=== PATIENT | female | born 1950 | race Two or more races ===

== ENCOUNTER 2024-07-15 17:28 | Observation (INO) | payer OTHER, SELFPAY ==
[2024-07-15 17:33] VITALS: BP 155/97; PULSE 78; RESP 17; TEMP 36.8; O2SAT 98
[2024-07-15 17:40] VITALS: PULSE 77
--- NOTE | 2024-07-15 17:40 | XR_ITS ---
Examination: CT brain head without contrast. 2-D sagittal coronal reconstructions Date and time of exam:July 15, 2024 1805 hrs. Comparison January 24, 2021 Indications: Onset focal neurologic deficit, left facial droop and dizziness beginning 2 days ago, history headache dizziness January 24, 2021 CTDI: vol (mGy):50.7 DLP: (mGycm):1084 Technique: Multiple CT axial sections of the brain have been obtained, 5 mm slice thickness. Contrast has not been administered. 2-D sagittal, coronal reconstructions have been obtained Low dose protocols were performed. One or more of the following dose reduction techniques were used; automated exposure control, adjustment of the mA and/or KV according to patient size, use of iterative reconstruction technique. Findings: No significant ventricular enlargement. Intra-axial or extra-axial hemorrhage density is not seen. No mass effect or midline shift Basal cisterns are not remarkable. Fourth ventricle is midline. Cranial vault intact. Impression: Negative for acute hemorrhage, mass effect or midline shift As clinically warranted, brain MRI follow-up would best assess for acute ischemic change
[2024-07-15 18:11] VITALS: BP 154/88; PULSE 66; RESP 17; TEMP 37.2; O2SAT 100
[2024-07-15 18:16] LABS: Basophils % (Auto) 1 % (0-2.5); Eosinophils # (Auto) 0.1 Thou/mm3 (0.0-0.5); Eosinophils % (Auto) 2 % (0-10); Hematocrit 32.7 % (36.0-46.0); Hemoglobin 11.1 g/dL (12.0-16.0); Immature Granulocytes % (Auto) 0 % (0-0); Immature Granulocytes Auto 0.01 Thou/mm3 (0.00-0.00); Lymphocytes # (Auto) 1.8 Thou/mm3 (1.0-4.8); Lymphocytes % (Auto) 29 % (10-50); Mean Corpuscular HGB Conc 33.9 g/dl (31.0-37.0); Mean Corpuscular Hemoglobin 31.2 pg (25.0-35.0); Mean Corpuscular Volume 92 fL (80-100); Monocytes # (Auto) 0.5 Thou/mm3 (0.0-0.8); Monocytes % (Auto) 9 % (0-12); Neutrophils # (Auto) 3.7 Thou/mm3 (1.8-7.7); Neutrophils % (Auto) 60 % (37-80); Nucleated Red Blood Cell % 0 /100 WBC (0); Platelet Count 176 Thou/mm3 (140-440); RDW Standard Deviation 46.6 fL (36.4-46.3); Red Blood Count 3.56 Miln/mm3 (4.00-5.20); White Blood Count 6.3 Thou/mm3 (3.6-11.0)
[2024-07-15 18:22] LABS: Prothrombin Time 10.9 Seconds (9.0-12.2)
[2024-07-15 18:25] LABS: B-Type Natriuretic Peptide 112 pg/mL (0-100)
[2024-07-15 18:26] LABS: Alanine Aminotransferase 26 U/L (10-49); Albumin, Serum 4.1 gm/dL (3.4-4.8); Albumin/Globulin Ratio 1.6 (1.2-2.2); Alkaline Phosphatase 95 U/L (46-116); Anion Gap 7 (7-16); Aspartate Amino Transferase 28 U/L (0-34); BUN/Creatinine Ratio 27 Ratio (12-20); Bilirubin,Total 0.4 mg/dL (0.3-1.2); Blood Urea Nitrogen 16 mg/dL (9-23); Calcium 9.2 mg/dL (8.3-10.6); Calcium (Corrected) 9.2 mg/dL (8.5-10.1); Carbon Dioxide 25.8 mMol/L (20.0-31.0); Chloride 102 mMol/L (98-107); Creatinine (Component) 0.6 mg/dL (0.6-1.3); Globulin 2.6 gm/dL (2.3-3.5); Glucose 103 mg/dL (74-106); LDH (Lactate Dehydrogenase) 191 U/L (120-246); Magnesium 2.1 mg/dL (1.6-2.6); Osmolality,Calculated 271 (275-295); Potassium 3.8 mMol/L (3.4-5.1); Sodium 135 mMol/L (136-145); Total Protein 6.7 gm/dL (5.7-8.2); Troponin I < 0.020 ng/mL (0.0-0.045); eGFR > 60 See Note
[2024-07-15 18:58] LABS: Partial Thromboplastin Time 27.3 Seconds (22.0-36.0)
--- NOTE | 2024-07-15 19:18 | EDNOTE_ITS ---
Neuro Symptoms Deficit-RME/HPI General Chief Complaint: Neuro Symptoms/Deficit Stated Complaint: LEFT FACIAL DROP/ SENT BY CLINIC R/O STROKE Time Seen by Provider: 07/15/24 17:39 Arrival date/time: 07/15/24 17:28 Limitations: no limitations RME / HPI RME / HPI Narrative: DR. MUNSON MAIN ED EVALUATION: 74 year old female with past medical history significant for hypertension presents to the Emergency Department accompanied by her daughter with complaint of mild left facial droop onset today at 1 PM. Patient also mentions that she had dizziness/ vertigo onset 2 days as well as numbness and tingling from her face onset 2 days, worse today. She took Meclizine and it helped a little. However, today she started with the left facial droop, which is new, and is here for evaluation. Patient denies any of the following: headache, nausea, vomiting, or any other symptoms at this time. Related Data Home Medications ?Medication ?Instructions ?Recorded ?Confirmed Hydrocodone/Acetaminophen * (NORCO 1 tab PO Q8HR PRN PAIN #0 tabs 05/09/15 10/15/22 5/325 *) lisinopril 10 mg tablet 10 mg PO QDAY High Blood Pressure 05/09/15 10/16/22 #0 tabs levothyroxine 50 mcg capsule 50 mcg PO QDAY 10/15/22 10/15/22 Previous Rx's ?Medication ?Instructions ?Recorded ibuprofen 600 mg tablet 600 mg PO Q8H PRN fever or pain 07/07/23 #30 tabs diphenhydramine HCl 25 mg capsule 50 mg (2 x 25 mg) PO TID PRN 04/05/24 (Benadryl) anxiety #20 caps Allergies Allergy/AdvReac Type Severity Reaction Status Date / Time No Known Allergies Allergy Verified 07/15/24 17:29 Review of Systems Review of Systems Systems Reviewed: All systems reviewed, normal except as documented Narrative Review of Systems: GEN: No fever, no chills, no weight loss EYES: No discharge, no visual changes, no pain HEENT: No ear pain, no congestion, no sore throat PULM: No shortness of breath, no cough, no congestion CV: No chest pain, no dyspnea on exertion, no palpitations GI: No nausea, no vomiting, no diarrhea, no pain, no constipation : No frequency, no urgency and no dysuria MUSC/SKEL: No joint pain, no back pain SKIN: No rash PSYCH: No hallucinations, no depression HEME/LYMPH: No easy bleeding or bruising tendencies NEURO: No weakness, no headache, + mild left facial droop, + dizziness/ vertigo, + numbness and tingling from her face Past Medical History Past Medical History CARDIAC: Positive Hypertension Social History SMOKING STATUS: Never smoker SUBSTANCE USE: does not use ALCOHOL: Never ED Exam Narrative Physical exam: NIH STROKE SCALE 1a. Level of Consciousness (Alert, drowsy, etc) [0 = Alert; 1 = Drowsy; 2 = Stuporous; 3 = Coma] = 0 1b. LOC Questions: (Month, age) [0 = Answers both correctly; 1 = Answers one correctly; 2 = Incorrect] = 0 1c. LOC Commands (Open/ close eyes, make fist/ let go) [0 = Obeys both correctly; 1 = Obeys one correctly; 2 = Incorrect] = 0 2. Best Gaze (Eyes open - patient follows examiner?s finger or face) [0 = Normal; 1 = Partial gaze palsy; 2 = Forced deviation] = 0 3. Visual Bowman (Introduce visual stimulus/ threat to pt?s visual field quadrants) [0 = No visual loss; 1 = Partial Hemianopia; 2 = Complete Hemianopia; 3 = Bilateral Hemianopia (Blind)] = 0 4. Facial Paresis (Show teeth, raise eyebrows and squeeze eyes shut) [0 = Normal; 1 = Minor; 2 = Partial; 3 = Complete] = 1 5a. Left Arm Motor Function (Elevate arm to 90 degrees if patient is sitting, 45 degrees if supine) [0 = No drift; 1 = Drift; 2 = Can?t resist gravity; 3 = No effort against gravity; 4 No movement; X = Untestable (Joint fusion or limb amp)] = 0 5b. Right Arm Motor Function (Elevate arm to 90 degrees if patient is sitting, 45 degrees if supine) [0 = No drift; 1 = Drift; 2 = Can?t resist gravity; 3 = No effort against gravity; 4 = No movement; X = Untestable (Joint fusion or limb amp)] = 0 6a. Left Leg Motor Function (Elevate 30 degrees with patient supine) [0 = No drift; 1 = Drift; 2 = Can?t resist gravity; 3 = No effort against gravity; 4 = No movement; X = Untestable (Joint fusion or limb amp)] = 0 6b.? Right Leg Motor Function (Elevate 30 degrees with patient supine) [0 = No drift; 1 = Drift; 2 = Can?t resist gravity; 3 = No effort against gravity; 4 = No movement; X = Untestable (Joint fusion or limb amp)] = 0 7. Limb Ataxia (Finger-nose, heel down merrill) [0 = No ataxia; 1 = Present in one limb; 2 = Present in two limbs] = 0 8. Sensory (Pin prick to face, arm, trunk, and leg; compare side to side) [0 = Normal; 1 = Partial loss; 2 = Severe loss] = 1 9. Best Language (Name item, describe a picture and read sentences) [0 = No aphasia; 1 = Mild to moderate aphasia; 2 = Severe aphasia; 3 = Mute] = 0 10. Dysarthria (Evaluate speech clarity by patient repeating listed words) [0 = Normal articulation; 1 = Mild to moderate slurring of words; 2 = Near to unintelligible or worse; X = Intubated or other physical barrier] = 0 11. Extinction and Inattention (Use information form prior testing to identify neglect or double simultaneous stimuli testing) [0 = No neglect; 1 = Partial neglect; 2 = Complete neglect] = 0 TOTAL SCORE = 2 General Limitations: Present no limitations General appearance: Present alert, in no apparent distress and other (mild left facial droop) Head Head exam: Present atraumatic, normocephalic and normal inspection Eye Eye exam: Present normal appearance, PERRL and EOMI ENT ENT exam: Present normal exam, normal oropharynx and mucous membranes moist Neck Neck exam: Present normal inspection, full ROM and trachea midline Chest Chest inspection: Present normal inspection and symmetric chest wall rise Respiratory Respiratory exam: Present normal lung sounds bilaterally Cardiovascular Cardiovascular exam: Present regular rate, normal rhythm and normal heart sounds Abdominal Exam Abdominal exam: Present soft and normal bowel sounds Extremities Exam Extremities exam: Present normal inspection and full ROM Back Exam Back exam: Present normal inspection and full ROM Neurological Exam Neurological exam: Present alert, oriented X3, CN II-XII intact, normal gait and other (mild left facial droop) Psychiatric Psychiatric exam: Present normal affect and normal mood Skin Skin exam: Present warm, dry, intact and normal color Course Quality Measures none Orders Category Date Time Status COVID-19 Screening Questionnaire NOW Care 07/15/24 22:30 Active Stem Setter NOW Care 07/15/24 17:40 Active Decision to Admit X1 Care 07/15/24 22:30 Active EKG (ED ONLY) *Do not use* NOW Care 07/15/24 17:[address] head/brain wo con Stat Exams 07/15/24 17:40 Completed EKG (ED Only) Stat Exams 07/15/24 17:40 Ordered B-Type Natriuretic Peptide Stat Lab 07/15/24 17:56 Completed CBC Stat Lab 07/15/24 17:56 Completed Comprehensive Metabolic Panel Stat Lab 07/15/24 17:56 Completed Drug Screen,Urine Stat Lab 07/15/24 20:19 Completed LDH (Lactate Dehydrogenase) Stat Lab 07/15/24 17:56 Completed Magnesium Stat Lab 07/15/24 17:56 Completed Partial Thromboplastin Time Stat Lab 07/15/24 17:56 Completed Prothrombin Time with INR Stat Lab 07/15/24 17:56 Completed Troponin I Stat Lab 07/15/24 17:56 Completed Urinalysis Stat Lab 07/15/24 20:40 Completed Aspirin [Ecotrin] Med 07/15/24 21:35 Discontinued 81 mg PO X1 ONE Vital Signs Vital signs: Vital Signs Temperature 98.2 F 07/15/24 17:33 Pulse Rate 78 07/15/24 17:33 Respiratory Rate 17 07/15/24 17:33 Blood Pressure 155/97 H 07/15/24 17:33 Pulse Oximetry (%) 98 07/15/24 17:33 Oxygen Delivery Method Room Air 07/15/24 17:33 Neuro Symptoms / Deficit MDM Narrative MDM Narrative:: IJahaira am scribing for and in the presence of Dr. Munson. Patient data External records reviewed:: [facility] previous records (Reviewed last ED visit dated 04/05/24, discharged with the following: Anxiety.) Clinical information provided by:: patient and family (daughter) Social determinants that could affect healthcare access:: none Patient has the following chronic illnesses:: Hypertension How is presenting disease/condition affected by chronic disease/condition?: exacerbated by Evaluation data The following diagnostics were reviewed and interpreted by me:: lab results, radiology exam(s) and EKG tracing(s) Lab and/or radiology exams considered but not ordered:: none Interpretation Summary: Procedure(s): CT head/brain wo con Accession Number(s): [id number] cc: Jami Beasley; Osmin (GUEST RELATION OFFICER),Tomas GUEST RELATION OFFICER; Poncho Jones MD~ Examination: CT brain head without contrast. 2-D sagittal coronal reconstructions Date and time of exam:July 15, 2024 1805 hrs. Comparison January 24, 2021 Indications: Onset focal neurologic deficit, left facial droop and dizziness beginning 2 days ago, history headache dizziness January 24, 2021 CTDI: vol (mGy):50.7 DLP: (mGycm):1084 Technique: Multiple CT axial sections of the brain have been obtained, 5 mm slice thickness. Contrast has not been administered. 2-D sagittal, coronal reconstructions have been obtained Low dose protocols were performed. One or more of the following dose reduction techniques were used; automated exposure control, adjustment of the mA and/or KV according to patient size, use of iterative reconstruction technique. Findings: No significant ventricular enlargement. Intra-axial or extra-axial hemorrhage density is not seen. No mass effect or midline shift Basal cisterns are not remarkable. Fourth ventricle is midline. Cranial vault intact. Impression: Negative for acute hemorrhage, mass effect or midline shift As clinically warranted, brain MRI follow-up would best assess for acute ischemic change Dictated By: Poncho Jones MD Medications / Prescriptions Medications or Prescriptions considered but not ordered:: none Medication administrations:: Medication Administration History Discontinued Medications Aspirin (Aspirin Ec 81 Mg Tabec) 81 mg PO X1 ONE Stop: 07/15/24 21:36 see above if any Consultations Consultation(s) initiated? (list below): Yes Consultation #1 (Physician, Specialty, Details): Discussed case with [Dr. Scott] from [teleneurology] regarding [consultation]. Discussed patients ED course, exam findings, labs, and radiology results. They are unclear on which side the facial droop is on, but agrees regarding the patient's complaint of numbness. Recommends aspirin, MRI, and further work-up. Time: 22:00 Consultation #2 (Physician, Specialty, Details): Discussed case with [the resident physician, attending Dr. Cardenas] from Hospitalist service regarding admission. Discussed patients ED course, exam findings, labs, and radiology results. The Hospitalist [agrees] to accept the patient for admission. Time: 22:20 Diagnosis Neuro Differential Diagnosis: subarachnoid hemorrhage, cerebrovascular accident, transient cerebral ischemia and other (vertigo, UTI, dehydration, electrolyte imbalance, anemia, atrial fibrillation) Most likely diagnosis given after review of the tests above:: see below Admission Indicated Admission indicated?: indicated Admission Request Was there a request for admission?: Yes Admission Attestation Admission request attestation: Discussed case with [] from Hospitalist service regarding admission. Discussed patients ED course, exam findings, labs, and radiology results. The Hospitalist [agrees,declines] to accept the patient for admission. Disposition Plan Disposition Plan: Admit Critical Care Time Critical Care Time Critical Care Time: Yes Total Critical Care Time (min.): 45 Attestation: The high probability of sudden, clinically significant deterioration in the patient?s condition required the highest level of my preparedness to intervene urgently. The services I provided to this patient were to treat and/or prevent clinically significant deterioration. Services included the following: chart data review, reviewing nursing notes and/or old charts, documentation time, new vehicle sales consultant collaboration regarding findings and treatment options, medication orders and management, direct patient care, vital sign assessments and ordering, interpreting and reviewing diagnostic studies and lab tests. Aggregate critical care time includes only time during which I was engaged in work directly related to the patient?s care, as described above, whether at bedside or elsewhere in the Emergency Department. It did not include time spent performing other reported procedures or the services of residents, students, nurses or physician assistants. Discharge Plan Plan Patient Disposition: Admit Acute Care w/in Hospital Patient condition on transfer: Stable Prescriptions/Referrals Prescriptions/Med Rec: No Action lisinopril 10 MG tablet 10 mg PO QDAY Qty: 0 Hydrocodone/Acetaminophen * (NORCO 5/325 *) 1 TAB tablet 1 tab PO Q8HR PRN (Reason: PAIN) Qty: 0 levothyroxine 50 mcg Capsule 50 mcg PO QDAY ibuprofen 600 mg tablet 600 mg PO Q8H PRN (Reason: fever or pain) Qty: 30 0RF diphenhydramine HCl [Benadryl] 25 mg capsule 50 mg PO TID PRN (Reason: anxiety) Qty: 20 0RF Referrals: Ramos,Roxie, PA-C [Primary Care Provider] - In 1 week Problem List Clinical Impression: Dizziness, Facial droop Patient/Caregiver Discharge Instructions Print Language: Swedish Stand Alone Forms: [employer] Award Info., Patient Portal Info Letter
[2024-07-15 21:21] LABS: Collection Type, Urine Clean Catch; RBC,Urine 0 /hpf (0-3)
[2024-07-15 21:32] LABS: Bilirubin,Urine Negative (Negative); Blood,Urine Negative (Negative); Clarity,Urine Clear (Clear/Hazy); Color,Urine Colorless (Lt Yel-Yel); Glucose, Urine Negative (Negative); Ketones,Urine Negative (Negative); Leukocyte Esterase,Urine Negative (Negative); Nitrite,Urine Negative (Negative); PH,Urine 6.5 (5.0-7.0); Protein,Urine Negative (Neg - Trace); Specific Gravity,Urine 1.007 (1.001-1.035); Squamous Epithelial Cell,Urine < 1 /hpf (0-5); Urobilinogen,Urine Negative mg/dL (0.0-1.0); WBC,Urine 1 /hpf (0-5)
[2024-07-15 21:37] VITALS: BP 162/88; PULSE 69; RESP 18; TEMP 36.6; O2SAT 100
--- NOTE | 2024-07-15 21:46 | PC.NURSE ---
stroke consult Case # [id number]
--- NOTE | 2024-07-15 22:10 | PD.TNEURO ---
Tele Neuro Consultation Consultation Date 07/15/24 Most Recent Vital Signs Last Vital Signs Temp 98 F 07/15/24 21:37 Pulse 69 07/15/24 21:37 Resp 18 07/15/24 21:37 BP 162/88 H 07/15/24 21:37 Pulse Ox 100 07/15/24 21:37 O2 Del Method Room Air 07/15/24 21:37 Laboratory-Coagulation Panel PT 10.9 Seconds (9.0-12.2) 07/15/24 17:56 INR 1.0 (0.9-1.3) 07/15/24 17:56 APTT 27.3 Seconds (22.0-36.0) 07/15/24 17:56 Consultation Narrative [facility] Consult Services Stat Consult Patient Name:???Yusra Rubin Date of :???1950 Identification Number:??? Date of Service:???07/15/2024 21:46:12 Diagnosis:?R20.2 - Paresthesia of skin ?H82 - Vertiginous syndromes in diseases classified Impression 1. left facial numbness: her left face is numb, interestingly on exam her right corner of her mouth is lower then the left but they felt perhaps a left facial droop smile is fairly symmetric no dysarthria. She does have vertigo worse then usual. CT head okay. Given concern for possible cva recommend MRI brain, FLP, A1c. routine cta head neck. Start asa 81 mg. Recommendations: Our recommendations are outlined below. Diagnostic Studies :MRI head without contrast CTA head and neck with contrast Laboratory Studies :Lipid panel I orderedHemoglobin A1c Antithrombotic Medication :Aspirin 81 mg PO daily Nursing Recommendations :IV Fluids, avoid dextrose containing fluids, Maintain euglycemia Neuro checks q4 hrs x 24 hrs and then per shift Head of bed 30 degrees Continue with Telemetry Consultations :Recommend Speech therapy if failed dysphagia screen Physical therapy/Occupational therapy DVT Prophylaxis :Choice of Primary Team Disposition :Neurology will follow Metrics: Dispatch Time: 07/15/2024 21:46:12 Callback Response Time: 07/15/2024 21:46:24 Primary Provider Notified of Diagnostic Impression and Management Plan on: 07/15/2024 22:11:59 CT HEAD: As Per Radiologist CT Head Showed No Acute Hemorrhage or Acute Core Infarct Chief Complaint: right facial weakness and numbness History of Present Illness:Patient is a 74 year old Female. The patient is a 74 year old woman with a history of HTN and vertigo. Two days ago she started to have some left facial weakness and numbness. She has no other weakness numbness or tingling. She does not take any blood thinners. No history of cva. She also has vertigo that has been more prominent then usual. Past Medical History: ?Hypertension Other PMH:? vertigo Medications: No Anticoagulant use? No Antiplatelet use Reviewed EMR for current medications Allergies:? Reviewed Social History: Drug Use: No Family History: There is no family history of premature cerebrovascular disease pertinent to this consultation ROS : 14 Points Review of Systems was performed and was negative except mentioned in HPI. Past Surgical History: There Is No Surgical History Contributory To Today?s Visit Examination: BP(136/75),?Pulse(75), 1A: Level of Consciousness - Alert; keenly responsive?+ 0 1B: Ask Month and Age - Both Questions Right?+ 0 1C: Blink Eyes & Squeeze Hands - Performs Both Tasks?+ 0 2: Test Horizontal Extraocular Movements - Normal?+ 0 3: Test Visual Bowman - No Visual Loss?+ 0 4: Test Facial Palsy (Use Grimace if Obtunded) - Minor paralysis (flat nasolabial fold, smile asymmetry)?+ 1 5A: Test Left Arm Motor Drift - No Drift for 10 Seconds?+ 0 5B: Test Right Arm Motor Drift - No Drift for 10 Seconds?+ 0 6A: Test Left Leg Motor Drift - No Drift for 5 Seconds?+ 0 6B: Test Right Leg Motor Drift - No Drift for 5 Seconds?+ 0 7: Test Limb Ataxia (FNF/Heel-Aguilar) - No Ataxia?+ 0 8: Test Sensation - Mild-Moderate Loss: Less Sharp/More Dull?+ 1 9: Test Language/Aphasia - Normal; No aphasia?+ 0 10: Test Dysarthria - Normal?+ 0 11: Test Extinction/Inattention - No abnormality?+ 0 NIHSS Score:?2 Spoke with :?ED Provider This consult was conducted in real time using interactive audio and video technology. Patient was informed of the technology being used for this visit and agreed to proceed. Patient located in hospital and provider located at home/office setting. Patient is being evaluated for possible acute neurologic impairment and high probability of imminent or life - threatening deterioration.I spent total of 35 minutes providing care to this patient, including time for face to face visit via telemedicine, review of medical records, imaging studies and discussion of findings with providers, the patient and / or family. Dr Xiomara Scott [facility] For Inpatient follow-up with [facility] physician please call [facility] at . As we are not an outpatient service for any post hospital discharge needs please contact the hospital for assistance. If you have any questions for the [facility] physicians or need to reconsult for clinical or diagnostic changes please contact us via [facility] at .
[2024-07-15 22:24] LABS: Amphetamine/Methamp Scrn,U Negative (Negative); Barbiturate Screen,Urine Negative (Negative); Benzodiazepines Screen,Urine Negative (Negative); Benzoylecgonine Screen, Ur Negative (Negative); Fentanyl Screen,Urine Negative (Negative); Opiate Screen,Urine Negative (Negative); THC Screen,Urine Negative (Negative)
[2024-07-15] MEDS: ASPIRIN EC 81 MG TABEC PO (22:44)
[2024-07-15 22:47] VITALS: BP 141/91; PULSE 70; PULSE 72; RESP 15; RESP 18; O2SAT 100; O2SAT 97
[2024-07-15 23:00] VITALS: BP 162/96; PULSE 71; RESP 18; O2SAT 100
--- NOTE | 2024-07-15 23:19 | PD.RESHP ---
Documentation for date of: 07/15/24 HPI History of Present Illness Chief complaint: Left facial numbness, dizziness History of present illness: 74-year-old female with past medical history of chronic vertigo (likely BPPV), PAD with persistent claudication and angioplasty in the past, hypertension presenting to the ED after she developed left facial numbness and was told at her PCP ([facility] in [place], [place]) to present to the emergency room for elevated blood pressure (systolic 150s) and possible mini stroke . History was taken alongside patient's daughters. Patient states that the symptoms started sometime around 4 PM on 07/15 with a headache near the back of her head which she describes as a heavy feeling. Patient's daughter also states that on Thursday (07/13) she had nasolabial fold numbness during a . Of note, patient has history of dizzy spells which started about 10 years ago after a concert. Patient states that symptoms come and go every other year or so; she takes meclizine 25 mg and that usually helps with her symptoms. This time however, patient took 3 tablets of meclizine and her symptoms did not subside. Her headache was worsened with dizziness and left-sided facial numbness around her nasolabial folds predominantly. Patient also has significant history of peripheral artery disease with angioplasty; she is unsure if they did balloon angioplasty or stent placement at that time, she does not take any blood thinners and she has not followed up with vascular surgery since the procedure. Patient denies having any fever/chills, shortness of breath, nausea/vomiting/diarrhea during and/or prior to this episode. Patient does state that she did experience chest tightness several months ago but that symptom has not been present since. Medical history: As stated above Surgical history: X 1 , reversal of tubal ligation Allergies: NKDA Medications: Meclizine 25 mg p.o., lisinopril 10 mg p.o., levothyroxine 50 mcg p.o. Family history: Mother in her 50s from an enlarged heart, and from heart disease Social history: Patient used to work in the [employer]ras[employer], lives in [place] with daughter and , denies ever smoking tobacco, drinking alcohol or illicit drug use ROS: All 12 systems assessed and the patient denies unless otherwise stated in the HPI In the ED, blood pressure is 155/97, heart rate 78, respiratory rate 17, temperature 98.5 and satting 98 on room air. Pertinent lab findings included hemoglobin 11.1 (MCV 92), sodium 135, troponin within normal limits, BNP 112, urinalysis without any signs of urinary tract infection, U-Tox negative. Stroke alert was initiated and teleneurology consulted; NIHSS score was 2, CT negative for any acute process. Teleneurology was consulted and their recommendations were to admit the patient and to require an MRI brain without contrast along with starting the patient on aspirin 81 mg daily to rule out stroke. Exam Vital Signs Temp Pulse Resp BP Pulse Ox O2 Del Method 98 F 72 15 141/91 H 97 Room Air 07/15/24 21:37 07/15/24 22:47 07/15/24 22:47 07/15/24 22:47 07/15/24 22:47 07/15/24 21:37 Narrative Exam Physical Exam: GENERAL: Awake, answers questions appropriately, appears stated age HEENT: NC/AT. Moist mucosa. PERRLA/EOMI. CARDIO: Heart RRR, no obvious murmurs, no JVD. PULM: No coughing or visible SOB. Lungs CTA B/L. GI: Abdomen soft, NT/ND, +BS. SKIN/MSK/EXT: No wounds/discoloration/rashes/edema/amputations. +Pedal pulses present B/L. NEURO: Oriented x3, L sided facial droop noted, Trigeminal nerve L side more numb, Facial nerve on left side is weak (cannot raise L eyebrow), rest of CN 2-12 intact, muscle strength and sensation intact in both upper/lower extremities. Moves extremities x4. Results: Labs 07/16/24 04:24 07/15/24 17:56 Labs: Short CBC 07/15/24 Range/Units 17:56 WBC 6.3 (3.6-11.0) Thou/mm3 Hgb 11.1 L (12.0-16.0) g/dL Hct 32.7 L (36.0-46.0) % Plt Count 176 (140-440) Thou/mm3 BMP 07/15/24 17:56 Sodium 135 L Potassium 3.8 Chloride 102 Carbon Dioxide 25.8 BUN 16 Creatinine 0.6 Glucose 103 Calcium 9.2 Cardiac Enzymes 07/15/24 Range/Units 17:56 Troponin I < 0.020 (0.0-0.045) ng/mL Liver Function 07/15/24 Range/Units 17:56 Total Bilirubin 0.4 (0.3-1.2) mg/dL AST 28 (0-34) U/L ALT 26 (10-49) U/L Alkaline Phosphatase 95 (46-116) U/L Albumin 4.1 (3.4-4.8) gm/dL Urine 07/15/24 Range/Units 20:40 Urine Color Colorless A (Lt Yel-Yel) Urine Clarity Clear (Clear/Hazy) Urine pH 6.5 (5.0-7.0) Ur Specific [place] 1.007 (1.001-1.035) Urine Protein Negative (Neg - Trace) Urine Glucose (UA) Negative (Negative) Quality Measures Quality Measures none Advance care planning discussed with:: patient and child (Daughters) Medications Home Medications and Allergies Home Medications ?Medication ?Instructions ?Recorded ?Confirmed ?Type lisinopril 10 mg tablet 10 mg PO QDAY High Blood Pressure 05/09/15 07/16/24 History #0 tabs hydrocodone 10 mg-acetaminophen 1 tab PO I2ABPER PRN ARTHIRITIS 07/16/24 07/16/24 History 325 mg tablet PAIN levothyroxine 88 mcg tablet 88 mcg PO DAILY 07/16/24 07/16/24 History meclizine 25 mg tablet 25 mg PO TID PRN Vertigo 07/16/24 07/16/24 History Allergies Allergy/AdvReac Type Severity Reaction Status Date / Time No Known Allergies Allergy Verified 07/15/24 17:29 Visit Medications Acetaminophen (Acetaminophen 325 Mg Tablet) 650 mg PO Q6H PRN PRN Reason: PAIN SCALE 1-3 (mild Stop: 08/14/24 23:13 Heparin Sodium (Porcine) (Heparin Sod Inj 5000 Unit/Ml Vial) 5,000 unit SC Q12HR SATHYA Stop: 07/30/24 08:59 Ondansetron HCl (Ondansetron Inj 2 Mg/Ml Inj 2 Ml) 4 mg IV Q6H PRN; Protocol PRN Reason: NAUSEA OR VOMITING Stop: 08/14/24 23:13 Sennosides (Senna Tablet) 1 tab PO QDAY PRN; Protocol PRN Reason: constipation Stop: 08/14/24 23:13 Discontinued Medications Aspirin (Aspirin Ec 81 Mg Tabec) 81 mg PO X1 ONE Stop: 07/15/24 21:36 Last Admin: 07/15/24 22:44 Dose: 81 mg Assessment & Plan Plan 74-year-old female with past medical history of chronic vertigo (likely BPPV), PAD with persistent claudication and angioplasty in the past, hypertension presenting after she developed left facial numbness and dizziness; stroke alert was initiated and teleneurology consulted; NIHSS score was 2, CT negative for any acute process. Teleneurology was consulted and their recommendations were to admit the patient and to require an MRI brain without contrast along with starting the patient on aspirin 81 mg daily to rule out stroke. #Stroke r/o #Possible CVA vs. Arnold's Palsy Patient presenting to ED on 07/15 with left facial numbness and dizziness. Symptoms started sometime on Friday 07/13 with nasolabial fold numbness and progressed to headache + dizziness sometime around 4pm on 07/15 Patient has not experienced sensations like this in the past She has extensive history of peripheral artery disease; mother side of the family with heart disease ( due to RI and enlarged heart ) Patient denies smoking, drinking, but she does have hypertension, no diabetes In the ED, NIHSS score of [address] negative for any acute process; teleneuro consulted and provided recs Physical exam findings as listed above Plan: Neurology, Dr. Alcaraz, consulted - appreciate recommendations MR Brain, stroke protocol CTA Head and Neck Echo with bubble study Continue aspirin 81mg daily PT and Speech eval Head of bed >30degrees Euglycemia Avoid hypotonic IVFs A1c and lipid panel in AM #Chronic Vertigo #Likely BPPV vs. less likely Meniere's or Labyrinthitis Patient states that she's been having vertigo (room spinning) sensation for over 10 years; started after she attended a concert one day (nosebleed seating) Patient experiences room spinning sensation every so often (a couple of times every other year or so) She takes Meclizine 25mg po as needed She states she took her Meclizine this time (three times) but her symptoms of dizziness did not subside Patient denies changes in hearing, tinnitus, fever/chills or recent infections Plan: Consider doing Parminder Hallpike maneuver and treating with Nola maneuver if positive Holding meclizine at this time #PAD s/p angioplasty in the past Patient has persistent pain in bilateral lower extremities in the past Has not followed up with vascular surgery after her angioplast years ago Does not know if she has stents or balloon angioplasty Plan: Doppler U/S of b/l lower extremities ordered Told to follow-up with PCP for vascular surgery consultation #Normocytic Anemia, chronic Patient presents with Hgb of 11.1 Previously presented with anemia Plan: Iron panel ordered; follow-up #Hypertension On home lisinopril 10mg po qday Plan: Restart when appropriate #Hypothyroidism On home levothyroxine 88mcg Plan: Restarted home med #Chronic venous hypertension Chronic medical problem Plan: Follow-up outpatient with PCP Hospital Management: Lines - PIV Diet - Cardiac Bowel - Senna prn GI prophylaxis: not needed DVT prophylaxis: heparin subq Dispo: stroke r/o; telemetry Code: Full Patient seen and examined with attending Dr. Cardenas and senior resident Dr. Kieran Villeda, PGY-1 Attending Provider Attestation/Addendum Face to face evaluation was performed by me. I have personally seen and examined the patient. I discussed the assessment and plan with the entire medicine team. I reviewed available medical records, imaging studies, laboratory results. I agree with the above subjective data, objective findings, assessment and plan except as corrected by me or noted below Facial numbness and facial droop Hx of chronic vertigo likely BPPV Essential HTN Hypothyroidism - Rule out stroke still, MRI brain, Neurology, therapy - permissive HTN for next 24 hours continue home levothyroxine.
--- NOTE | 2024-07-15 23:37 | XR_ITS ---
Examination: CTA carotids with intravenous contrast CTA brain, head with intravenous contrast. 2-D sagittal, coronal reconstructions. 3-D reconstructions. Exam date and time: July 16, 2024 1410 hrs. Indications: Sharp, onset left-sided facial droop today CTDI: vol (mGy) 16.8 DLP: (mGycm) 415 Technique: Multiple CTA axial brain, head carotid images post intravenous contrast injection 100 cc, [id number]. 2-D sagittal, coronal reconstructions. 3-D reconstructions, 3-D post processing including vascular maximum intensity projection images. Low dose protocols were performed. One or more of the following dose reduction techniques were used; automated exposure control, adjustment of the mA and/or KV according to patient size, use of iterative reconstruction technique. Findings: No significant common carotid carotid bifurcation or internal carotid artery stenoses Dominant left vertebral artery with no critical stenoses 6 mm right thyroid nodule No cerebral large vessel arterial occlusions, thrombus, dissection or cerebral aneurysm Impression: No significant neck arterial stenoses No cerebral large vessel arterial occlusions, thrombus, dissection or cerebral aneurysm
--- NOTE | 2024-07-16 | XR_ITS ---
Examinations: MRI Brain without intravenous contrast. MRA brain without intravenous contrast. MRA carotids without intravenous contrast 3-D vascular reconstructions Date and time of exam: July 16, 2024 0921 hrs. Indications: Stroke alert July 15, 2024, onset focal neurologic deficit numbness paresthesias in the face left-sided facial droop Technique: Multiple axial and sagittal images of the brain have been obtained MRA brain carotid images without contrast obtained, including 3-D postprocessing, vascular maximum intensity projection images Findings: Sellaturc[place] is not enlarged. The optic chiasm and infundibular stalk are not remarkable. Prepontine and interpeduncular cisterns are not enlarged. No localized enlargement of the medulla or ofelia. Fourth ventricle and cerebellar tonsils normal in position. Subacute hemorrhage is not seen. Fourth ventricle is midline. Mass in the cerebellopontine angle region is not evident. 7th and 8th nerve complexes exhibits symmetry. Globes are symmetrical with no retro-orbital mass. Increased white matter signal moderate Diffusion-weighted images demonstrate no focus of restricted diffusion Mass-effect upon the ventricular system is not identified. MRA carotid images degraded by patient motion. MRA brain images no large vessel occlusions Impression: Negative for acute hemorrhage mass effect or midline shift No acute infarct Moderate chronic microvascular white matter change No cerebral large vessel arterial occlusions
--- NOTE | 2024-07-16 00:01 | XR_ITS ---
Examination: Venous duplex lower extremity sonogram, bilateral. Date and time of exam: July 16, 2024 0757 hrs. Indications: Bilateral leg swelling and pain beginning 15 years ago Technique: Multiple sonographic images of the deep venous system have been obtained. B-mode/2-D grayscale imaging of vascular structures and Doppler spectral analysis (waveforms) and color performed Both legs are examined. Findings: Deep venous systems do not demonstrate abnormal echogenicity. All visualized deep veins exhibit compressibility. All visualized deep veins exhibit augmentation. Impression: Negative for deep vein thrombosis
--- NOTE | 2024-07-16 00:04 | PC.NURSE ---
REPORT GIVEN TO NGUYEN GERARDO. ALL QUESTIONS ASKED AND ANSWERED. PATIENT TRANSFERRED TO FLOOR WITH STAFF. NO DISTRESS NOTED AT TRANSFER.
[2024-07-16 00:25] VITALS: BP 146/77; PULSE 67; RESP 12; TEMP 36.1; O2SAT 97
[2024-07-16 04:00] VITALS: BP 159/90; PULSE 61; PULSE 62; RESP 15; TEMP 36.1; O2SAT 95
[2024-07-16 05:37] LABS: Basophils % (Auto) 0 % (0-2.5); Eosinophils # (Auto) 0.1 Thou/mm3 (0.0-0.5); Eosinophils % (Auto) 3 % (0-10); Hematocrit 30.8 % (36.0-46.0); Hemoglobin 10.4 g/dL (12.0-16.0); Immature Granulocytes % (Auto) 0 % (0-0); Immature Granulocytes Auto 0.01 Thou/mm3 (0.00-0.00); Lymphocytes # (Auto) 1.3 Thou/mm3 (1.0-4.8); Lymphocytes % (Auto) 28 % (10-50); Mean Corpuscular HGB Conc 33.8 g/dl (31.0-37.0); Mean Corpuscular Hemoglobin 31.2 pg (25.0-35.0); Mean Corpuscular Volume 93 fL (80-100); Monocytes # (Auto) 0.5 Thou/mm3 (0.0-0.8); Monocytes % (Auto) 11 % (0-12); Neutrophils # (Auto) 2.7 Thou/mm3 (1.8-7.7); Neutrophils % (Auto) 58 % (37-80); Nucleated Red Blood Cell % 0 /100 WBC (0); Platelet Count 149 Thou/mm3 (140-440); RDW Standard Deviation 46.5 fL (36.4-46.3); Red Blood Count 3.33 Miln/mm3 (4.00-5.20); White Blood Count 4.6 Thou/mm3 (3.6-11.0)
[2024-07-16 05:50] LABS: Glucose Estimated Average 114 mg/dL (80-131); Hemoglobin A1C 5.6 % Hgb (4.8-6.0)
[2024-07-16] MEDS: LEVOTHYROXINE SODIUM 88 MCG TABLET PO (05:51)
[2024-07-16 06:05] LABS: Alanine Aminotransferase 28 U/L (10-49); Albumin, Serum 3.7 gm/dL (3.4-4.8); Albumin/Globulin Ratio 1.7 (1.2-2.2); Alkaline Phosphatase 78 U/L (46-116); Anion Gap 6 (7-16); Aspartate Amino Transferase 29 U/L (0-34); BUN/Creatinine Ratio 26 Ratio (12-20); Bilirubin,Total 0.4 mg/dL (0.3-1.2); Blood Urea Nitrogen 13 mg/dL (9-23); Calcium 9.2 mg/dL (8.3-10.6); Calcium (Corrected) 9.4 mg/dL (8.5-10.1); Carbon Dioxide 26.2 mMol/L (20.0-31.0); Chloride 107 mMol/L (98-107); Cholesterol 146 mg/dL (132-200); Creatinine (Component) 0.5 mg/dL (0.6-1.3); Globulin 2.2 gm/dL (2.3-3.5); Glucose 87 mg/dL (74-106); HDL Cholesterol 48 mg/dL (40-60); LDL Cholesterol,Calculated 83 mg/dL (0-130); Magnesium 1.7 mg/dL (1.6-2.6); Osmolality,Calculated 276 (275-295); Phosphorous 3.8 mg/dL (2.4-5.1); Sodium 139 mMol/L (136-145); Thyroid Stimulating Hormone 1.56 uIU/mL (0.55-4.78); Total Protein 5.9 gm/dL (5.7-8.2); Triglycerides 77 mg/dL (30-150); eGFR > 60 See Note
[2024-07-16 06:30] LABS: Ferritin 14 ng/mL (7.3-270.7); Iron 41 mcg/dL (50-170); Percent Iron Saturation 14 % (20-55); Total Iron Binding Capacity 282 mcg/dL (250-425); Unsaturated Iron Binding 241 (225-295)
[2024-07-16 08:00] VITALS: BP 133/82; PULSE 83; RESP 20; TEMP 35.9; O2SAT 95
[2024-07-16] MEDS: HEPARIN SOD INJ 5000 UNIT/ML VIAL SC ×2 (08:45→20:49)
[2024-07-16] MEDS: ASPIRIN EC 81 MG TABEC PO (08:45)
--- NOTE | 2024-07-16 09:33 | PCS.ST ---
Observed meal. No dysphagia. Cognitive/communication skills baseline. NO ST services warranted at this time.
[2024-07-16 12:00] VITALS: BP 150/87; PULSE 70; PULSE 77; RESP 21; TEMP 36.2; O2SAT 95
--- NOTE | 2024-07-16 13:17 | ESPR_ITS ---
Documentation for date of: 07/16/24 Subjective Subjective Interval history: Patient was seen and examined bedside. Estonian-speaking and daughter is at her bedside who can speak and understand Danish. Stated that she is feeling well and the numbness was subsided with feeling of swelling over her right cheek. On physical examination, no focal neurological deficits noted. Brain MRI with MR angiogram showed no acute infarcts and negative for hemorrhage. CT angio of head/neck and echo is still pending Exam Vital Signs Temp Pulse Resp BP Pulse Ox O2 Del Method 97.2 F 70 21 H 150/87 H 95 Room Air 07/16/24 12:00 07/16/24 12:00 07/16/24 12:00 07/16/24 12:00 07/16/24 12:07/16/24 12:00 Narrative Exam General: Awake and in no acute distress. HEENT: Normocephalic, atraumatic, mucous membranes moist. Heart: Regular rate and rhythm, no murmurs. Lungs: Clear to auscultation with no wheezing or crackles. Abdomen: Soft, nondistended, nontender, positive bowel sounds. ?No guarding or rebound tenderness. Neurologic: Alert and oriented x3, no gross neurological deficit, and patient able to move all 4 extremities. Extremities: No edema. Skin: No rash or ecchymoses. Objective Labs 07/17/24 05:13 07/17/24 05:13 Labs: Laboratory Results - last 24 hr 07/15/24 07/15/24 07/15/24 17:56 20:19 20:40 WBC 6.3 RBC 3.56 L Hgb 11.1 L Hct 32.7 L MCV 92 MCH 31.2 MCHC 33.9 RDW Std Deviation 46.6 H Plt Count 176 Neut % (Auto) 60 Lymph % (Auto) 29 [place] % (Auto) 9 Eos % (Auto) 2 Baso % (Auto) 1 Neut # (Auto) 3.7 Lymph # (Auto) 1.8 [place] # (Auto) 0.5 Eos # (Auto) 0.1 Baso # (Auto) 0.0 Immature Gran # (Auto) 0.01 H Absolute Nucleated RBC 0.00 Immature Gran % 0 Nucleated RBC % 0 PT 10.9 INR 1.0 APTT 27.3 Sodium 135 L Potassium 3.8 Chloride 102 Carbon Dioxide 25.8 Anion Gap 7 BUN 16 Creatinine 0.6 Estim Creat Clear Calc Not Performed. eGFR > 60 BUN/Creatinine Ratio [address] Glucose [address] Glu mg/dL Hemoglobin A1c Calculated Osmolality 271 L Calcium 9.2 Corrected Calcium 9.2 Phosphorus Magnesium 2.1 Iron TIBC Iron Saturation Unsat Iron Binding Ferritin Total Bilirubin 0.4 AST 28 ALT 26 Alkaline Phosphatase 95 Lactate Dehydrogenase 191 Troponin I < 0.020 B-Natriuretic Peptide 112 H Total Protein 6.7 Albumin 4.1 Globulin 2.6 Albumin/Globulin Ratio 1.6 Triglycerides Cholesterol LDL Cholesterol, Calc HDL Cholesterol Cholesterol/HDL Ratio TSH Ur Collection Type Clean Catch Urine Color Colorless A Urine Clarity Clear Urine pH 6.5 Ur Specific [place] 1.007 Urine Protein Negative Urine Glucose (UA) Negative Urine Ketones Negative Urine Blood Negative Urine Nitrite Negative Urine Bilirubin Negative Urine Urobilinogen (Auto) Negative Ur Leukocyte Esterase Negative Urine RBC 0 Urine WBC 1 Ur Squamous Epith Cells < 1 Urine Bacteria None Urine Opiates Screen Negative Urine Fentanyl Screen Negative Ur Barbiturates Screen Negative U Amphetamin/Meth Scrn Negative U Benzodiazepines Scrn Negative U Cocaine Metab Screen Negative U Marijuana (THC) Screen Negative 07/16/24 04:24 WBC 4.6 RBC 3.33 L Hgb 10.4 L Hct 30.8 L MCV 93 MCH 31.2 MCHC 33.8 RDW Std Deviation 46.5 H Plt Count 149 Neut % (Auto) 58 Lymph % (Auto) 28 [place] % (Auto) 11 Eos % (Auto) 3 Baso % (Auto) 0 Neut # (Auto) 2.7 Lymph # (Auto) 1.3 [place] # (Auto) 0.5 Eos # (Auto) 0.1 Baso # (Auto) 0.0 Immature Gran # (Auto) 0.01 H Absolute Nucleated RBC 0.00 Immature Gran % 0 Nucleated RBC % 0 PT 11.0 INR 1.0 APTT Sodium 139 Potassium 4.0 Chloride 107 Carbon Dioxide 26.2 Anion Gap 6 L BUN 13 Creatinine 0.5 L Estim Creat Clear Calc Not Performed. eGFR > 60 BUN/Creatinine Ratio [address]ucose [address] Glu mg/dL 114 Hemoglobin A1c 5.6 Calculated Osmolality 276 Calcium 9.2 Corrected Calcium 9.4 Phosphorus 3.8 Magnesium 1.7 Iron 41 L TIBC 282 Iron Saturation 14 L Unsat Iron Binding 241 Ferritin 14 Total Bilirubin 0.4 AST 29 ALT 28 Alkaline Phosphatase 78 Lactate Dehydrogenase Troponin I B-Natriuretic Peptide Total Protein 5.9 Albumin 3.7 Globulin 2.2 L Albumin/Globulin Ratio 1.7 Triglycerides 77 Cholesterol 146 LDL Cholesterol, Calc 83 HDL Cholesterol 48 Cholesterol/HDL Ratio 3.0 L TSH 1.56 Ur Collection Type Urine Color Urine Clarity Urine pH Ur Specific [place] Urine Protein Urine Glucose (UA) Urine Ketones Urine Blood Urine Nitrite Urine Bilirubin Urine Urobilinogen (Auto) Ur Leukocyte Esterase Urine RBC Urine WBC Ur Squamous Epith Cells Urine Bacteria Urine Opiates Screen Urine Fentanyl Screen Ur Barbiturates Screen U Amphetamin/Meth Scrn U Benzodiazepines Scrn U Cocaine Metab Screen U Marijuana (THC) Screen Quality Measures Quality Measures none Advance care planning discussed with:: patient and child Assessment & Plan Assessment Current Active Medications: Generic Name Dose Route Start Last Admin Trade Name Freq PRN Reason Stop Dose Admin Acetaminophen 650 mg 07/15/24 23:14 Acetaminophen 325 Mg Tablet PO 08/14/24 23:13 Q6H PRN PAIN SCALE 1-3 (mild Aspirin 81 mg 07/16/24 09:00 07/16/24 08:45 Aspirin Ec 81 Mg Tabec PO 08/15/24 08:59 81 mg QDAY SATHYA Administration Atorvastatin Calcium 40 mg 07/16/24 21:00 Atorvastatin Calcium 20 Mg Tablet PO 08/15/24 20:59 HS SATHYA Heparin Sodium (Porcine) 5,000 unit 07/16/24 09:00 07/16/24 08:45 Heparin Sod Inj 5000 Unit/Ml Vial SC 07/30/24 08:59 5,000 unit Q12HR SATHYA Administration Levothyroxine Sodium 88 mcg 07/16/24 06:00 07/16/24 05:51 Levothyroxine Sodium 88 Mcg Tablet PO 08/15/24 05:59 88 mcg ACBR SATHYA Administration Ondansetron HCl 4 mg 07/15/24 23:14 Ondansetron Inj 2 Mg/Ml Inj 2 Ml IV 08/14/24 23:13 Q6H PRN NAUSEA OR VOMITING Protocol Sennosides 1 tab 07/15/24 23:14 Senna Tablet PO 08/14/24 23:13 QDAY PRN constipation Protocol Plan A 74-year-old female with past medical history of hypothyroidism, hypertension, BPPV, history of PAD, history of varicose veins presented to the hospital with the complaints of numbness of lower left half of the face and admitted to rule out stroke. #Transient ischemic attack vs Acute ischemic stroke rule out Patient presented with complaints of numbness of left lower half of the face for [address] head on 07/15/2024 showed no acute hemorrhage or infarct MRA head and neck showed no acute hemorrhage. Teleneurology was consulted in the ED at the time of admission and NIHSS score at that time is 2 TSH is 1.56, lipid profile is within normal limits HbA1c is 5.6 CBC is within normal limits except for mild anemia, CMP is within normal limits. Plan -Admitted to Telemetry -Head of bed elevation >30 degrees -Maintain euglycemia and normal temperature -Allow for permissive hypertension below 220/120 with 25% reduction goal in first 24 hours -Q4H neuro checks, PT evaluation ordered -Echocardiography with bubble study ordered, pending -CT angio of head/neck is ordered and pending -NIHSS score on repeat evaluation is 0, lower suspicion of acute ischemic stroke -Start aspirin 81 mg daily -Start atorvastatin 40 mg HS daily # Normocytic normochromic anemia -Hemoglobin at the time of admission is 11.1 -MCV, MCH, MCHC is within normal limits -Iron panel showed iron 41, iron saturation 14%, rest of the panel is within normal limits Plan -Recommended to follow-up in outpatient basis with her primary care provider -Will monitor CBC -Patient does not need any blood transfusions or IV iron supplementation as of now. # History of hypertension -Patient is using lisinopril 10 Mg p.o. daily at home -Blood pressure at the time of admission is 155/97 mmHg Plan -Will allow permissive hypertension for 24 to 48 hours -If the blood pressure is > 220/110 mmHg, hydralazine 10 Mg IV as needed -Will resume antihypertensives on 07/17/2024 based on her blood pressures # History of hypothyroidism -Patient is using levothyroxine 88 mcg at home -TSH at the time of admission is 1.56 Plan -Received her home dose # History of chronic vertigo, BPPV versus M?ni?re's disease -Patient is on meclizine 25 Mg p.o. 3 times daily as needed -Reported that she had similar episode before hospital admission -On reevaluation in the hospital, patient denied further symptoms Plan -Will monitor for now and will give meclizine as needed # History of varicose veins -Reported that she had varicosities and history of lower extremity swelling -On examination no edema noted Hospital Maintenance: Dispo: Telemetry DVT ppx: Heparin GI ppx: Protonix Diet: Cardiac IV lines: Peripheral Code status: Full code Patient plan of care was discussed with the attending physician, Dr. Kenyatta Turner, PGY1 Attending Provider Attestation/Addendum I reviewed labs, imaging, EKG, home medications and prior available records. Face to face evaluation was performed by me. I have personally examined the patient and discussed assessment and plan with the IM team. I reviewed the resident note and agree with the plan with exceptions as below. CVA symptoms: Patient's symptoms are improving. Follow-up MRI. Follow-up PT. Continue aspirin and atorvastatin. Follow-up CTA head/neck.
--- NOTE | 2024-07-16 14:10 | PC.PT ---
PT eval only. Patient is I with transfers and ambulation without AD.
[2024-07-16] MEDS: Milk Of Magnesia Susp 30 ML UDC PO (15:31)
[2024-07-16 16:00] VITALS: BP 122/78; PULSE 70; RESP 20; TEMP 36.8; O2SAT 95
--- NOTE | 2024-07-16 18:51 | ESCONSULT_ITS ---
History of Present Illness Data of Consult Requesting Physician: Jorge Cardenas MD Primary Care Provider: Jami Beasley PA-C Consult Narrative History of present illness: Ms. Rubin is a 74-year-old female with history of chronic vertigo, peripheral arterial disease, hypertension presented to the ER with sudden onset of left facial numbness. Her blood pressure was elevated with a systolic in the 150s and she was told by her primary care physician at the [facility] to be evaluated in the ER. She has been having dizzy spells for the last 10 years, intermittently and she takes meclizine as needed. As the left facial numbness and weakness got worse with the dizziness, she decided to come and get evaluated in the ER. She denies any fever or chills nausea vomiting, weakness in the extremities or migraine headache. Denies any chest pain or shortness of breath. She has been compliant on her medication intake. She got admitted to telemetry for further management. CT head was negative for acute intracranial abnormalities. Neurology was consulted to evaluate further. cc:: cc: Jorge Cardenas MD Review of Systems Review of Systems Systems Reviewed: All systems reviewed, normal except as documented Past Medical History Past Medical History CARDIAC: Positive Hypertension Social History SMOKING STATUS: Never smoker SUBSTANCE USE: does not use ALCOHOL: Never Meds Home Medications and Allergies Home Medications ?Medication ?Instructions ?Recorded ?Confirmed ?Type lisinopril 10 mg tablet 10 mg PO QDAY High Blood Pressure 05/09/15 07/16/24 History #0 tabs hydrocodone 10 mg-acetaminophen 1 tab PO [id number] PRN ARTHIRITIS 07/16/24 07/16/24 History 325 mg tablet PAIN levothyroxine 88 mcg tablet 88 mcg PO DAILY 07/16/24 07/16/24 History meclizine 25 mg tablet 25 mg PO TID PRN Vertigo 07/16/24 07/16/24 History Allergies Allergy/AdvReac Type Severity Reaction Status Date / Time No Known Allergies Allergy Verified 07/15/24 17:29 Exam - Neurology Vital Signs Temp Pulse Resp BP Pulse Ox O2 Del Method 98.2 F 70 20 122/78 95 Room Air 07/16/24 16:00 07/16/24 16:00 07/16/24 16:00 07/16/24 16:00 07/16/24 16:00 07/16/24 16:00 Narrative Exam GENERAL APPEARANCE: Well hydrated, well-nourished in no acute distress. HEENT: Normocephalic, atraumatic, extraocular movements intact. Pupils: Equal reacting to light and accommodation, tympanic membranes are bilaterally intact. There is no bulge or retraction. Throat without erythema or exudate. Moist oral mucosa. NECK: Supple, no JVD or bruits. CARDIOVASULAR: Heart: S1, S2 heard, regular without S3-S4 or murmur no rubs or gallops. LUNGS/CHEST: Clear to auscultation bilaterally. No rails, rhonchi, or wheezing. Normal inspection. ABDOMEN: Soft, nontender, with normal bowel sounds. No pulsatile masses. No rebound, rigidity, or guarding. Normal inspection and palpation. EXTREMITIES: Normal inspection and palpation. No edema, clubbing or cyanosis. SKIN: Warm and dry without rashes. Normal inspection. MUSCULOSKELETAL: No cervical, thoracic, lumbar or midline bony tenderness. Normal inspection. NEURO: Alert, awake and oriented x3. Cranial nerves: II through XII grossly intact. Speech and language: Normal with no dysarthria or dysphasia. Motor system: Tone and bulk: Normal: Strength: 5 out of 5 in all 4 extremities; No pronator drift noted. Deep tendon reflexes: 2+ bilaterally symmetrical. Plantar reflex: Downgoing bilaterally. Sensory system: Intact to all modalities of sensation bilaterally. Coordination: Intact to afwopi-asmt-gniip and ewzb-awxx-ydhi test bilaterally. No ataxia, no dysmetria, or dysdiadochokinesia noted. No intention tremors noted. Gait: Normal. Toe, heel, tandem walk all are normal. Romberg: Negative. No signs of meningeal irritation noted. PSYCHIATRIC: Normal mood and affect. Denies homicidal or suicidal ideation. Results Labs 07/17/24 05:13 07/17/24 05:13 Labs: Short CBC 07/16/24 Range/Units 04:24 WBC 4.6 (3.6-11.0) Thou/mm3 Hgb 10.4 L (12.0-16.0) g/dL Hct 30.8 L (36.0-46.0) % Plt Count 149 (140-440) Thou/mm3 BMP 07/16/24 04:24 Sodium 139 Potassium 4.0 Chloride 107 Carbon Dioxide 26.2 BUN 13 Creatinine 0.5 L Glucose 87 Calcium 9.2 Liver Function 07/16/24 Range/Units 04:24 Total Bilirubin 0.4 (0.3-1.2) mg/dL AST 29 (0-34) U/L ALT 28 (10-49) U/L Alkaline Phosphatase 78 (46-116) U/L Albumin 3.7 (3.4-4.8) gm/dL Urine 07/15/24 Range/Units 20:40 Urine Color Colorless A (Lt Yel-Yel) Urine Clarity Clear (Clear/Hazy) Urine pH 6.5 (5.0-7.0) Ur Specific [place] 1.007 (1.001-1.035) Urine Protein Negative (Neg - Trace) Urine Glucose (UA) Negative (Negative) Assessment & Plan Additional Assessment & Plan Additional Plan: 1) TIA (transient ischemic attack): Status: Acute Assessment and plan: Resolved, reassurance given to the patient regarding the negative workup including CT and MRI brain. Continue with pirin and statin. (2) Dizziness: Status: Chronic Assessment and plan: Most likely vertigo from inner ear (3) Hypothyroidism: Status: Chronic Assessment and plan: Continue with the levothyroxine (4) Hypertension: Status: Chronic Assessment and plan: Continue home meds: Lisinopril
[2024-07-16 20:00] VITALS: BP 119/56; PULSE 76; PULSE 80; RESP 17; TEMP 36.3; O2SAT 96
[2024-07-16] MEDS: ATORVASTATIN CALCIUM 20 MG TABLET 40 MG PO (20:49)
[2024-07-16] MEDS: ACETAMINOPHEN 325 MG TABLET 650 MG PO (20:49)
[2024-07-17] VITALS: BP 128/83; PULSE 66; PULSE 67; RESP 20; TEMP 36.1; O2SAT 96
[2024-07-17 04:00] VITALS: BP 126/70; PULSE 61; PULSE 74; RESP 16; TEMP 36.3; O2SAT 94
[2024-07-17 05:39] LABS: Basophils % (Auto) 0 % (0-2.5); Eosinophils # (Auto) 0.1 Thou/mm3 (0.0-0.5); Eosinophils % (Auto) 3 % (0-10); Hematocrit 32.7 % (36.0-46.0); Hemoglobin 11.1 g/dL (12.0-16.0); Immature Granulocytes % (Auto) 1 % (0-0); Immature Granulocytes Auto 0.02 Thou/mm3 (0.00-0.00); Lymphocytes # (Auto) 1.3 Thou/mm3 (1.0-4.8); Lymphocytes % (Auto) 30 % (10-50); Mean Corpuscular HGB Conc 33.9 g/dl (31.0-37.0); Mean Corpuscular Hemoglobin 30.8 pg (25.0-35.0); Mean Corpuscular Volume 91 fL (80-100); Monocytes # (Auto) 0.5 Thou/mm3 (0.0-0.8); Monocytes % (Auto) 11 % (0-12); Neutrophils # (Auto) 2.5 Thou/mm3 (1.8-7.7); Neutrophils % (Auto) 56 % (37-80); Nucleated Red Blood Cell % 0 /100 WBC (0); Platelet Count 176 Thou/mm3 (140-440); RDW Standard Deviation 44.5 fL (36.4-46.3); White Blood Count 4.4 Thou/mm3 (3.6-11.0)
[2024-07-17] MEDS: LEVOTHYROXINE SODIUM 88 MCG TABLET PO (05:43)
[2024-07-17 06:07] LABS: Anion Gap 7 (7-16); BUN/Creatinine Ratio 18 Ratio (12-20); Blood Urea Nitrogen 11 mg/dL (9-23); Calcium 9.4 mg/dL (8.3-10.6); Carbon Dioxide 26.2 mMol/L (20.0-31.0); Chloride 105 mMol/L (98-107); Creatinine (Component) 0.6 mg/dL (0.6-1.3); Glucose 94 mg/dL (74-106); Osmolality,Calculated 275 (275-295); Potassium 3.8 mMol/L (3.4-5.1); Sodium 138 mMol/L (136-145); eGFR > 60 See Note
[2024-07-17 08:00] VITALS: BP 143/94; PULSE 68; RESP 16; TEMP 36.3; O2SAT 96
[2024-07-17] MEDS: ASPIRIN EC 81 MG TABEC PO (09:35)
[2024-07-17] MEDS: HEPARIN SOD INJ 5000 UNIT/ML VIAL SC (09:35)
[2024-07-17] MEDS: HYDROcodone/APAP 5/325 TABLET 1 TAB PO (10:40)
--- NOTE | 2024-07-17 11:22 | ESDS_ITS ---
Planned Discharge Date 07/17/24 DS: Providers Provider Date of admission: 07/15/24 23:14 Primary care physician: Jmai Beasley PA-C Admitting Provider: Jorge Cardenas MD Attending Provider on Admission: Jorge Cardenas MD Consults: 07/15/24 23:18 Referral Physical Therapy Routine Comment: Physician Instructions: Referral Speech Therapy Routine Comment: 07/15/24 23:32 Consult to Neurology / Tele-Neurology Routine Comment: Consulting Provider: Grant Alcaraz 07/17/24 08:07 Referral Physical Therapy Routine Comment: Physician Instructions: Attending Provider on DC: Jesus You MD Discharging Provider: Brennen Hopson MD DS: Diagnosis Discharge Diagnosis (1) TIA (transient ischemic attack): Status: Acute Problem List Completed Was Problem List Reviewed/Reconciled?: Yes Hospital Course Hospital Course Hospital course: Hospital Course: Ms Rubin is a [place] islander-speaking 74 year old female with past medical history of hypothyroidism, hypertension, BPPV, history of PAD, history of varicose veins presented to the hospital with the complaints of numbness of lower left half of the face and admitted to rule out acuet CVA. On physical examination, no focal neurological deficits noted. Head CT and Brain MRI with MR angiogram showed no acute infarcts and negative for hemorrhage. She appears to have returned to baseline and is cleared by Neurology to follow up outpatient. She is being discharged on ASA 81mg and Atorvastatin 40mg HS daily. She can continue all other home medication as prescribed. Problems on this admission: - Transient ischemic attack - Normocytic normochromic anemia - Primary hypertension - Hypothyroidism - Chronic vertigo, BPPV - Chronic venous insufficiency - 6 mm right thyroid nodule noted on Head and Neck CTA, likely benign Procedures: None Discharge instructions: - Follow up with PCP in 1 week from discharge - Get referral to see Neurologist Dr Alcaraz in 2 weeks from discharge - Take daily low dose Aspirin 81mg - Take Atorvastatin 40mg daily for stroke prevention - Advise close monitoring of RT thyroid nodule - Exercise and walking recommended, as tolerated - Return to ED if symptoms worsen We are grateful to be able to participate in Ms Rubin's care. We wish her the best. - Brennen Hopson MD Status at Discharge Cognitive/behavioral status at discharge: Stable and returned to baseline Time Spent with Patient Time attestation: Total time spent providing and/or coordinating discharge services: more than 50% Quality: Stroke Pt Provided Written Stroke Discharge Instructions: No Exam Vital Signs Temp Pulse Resp BP Pulse Ox O2 Del Method 97.4 F 68 16 143/94 H 96 Room Air 07/17/24 08:00 07/17/24 08:00 07/17/24 08:00 07/17/24 08:00 07/17/24 08:00 07/17/24 08:00 Narrative Exam Constitutional Alert, oriented x3 and comfortable. Back to baseline HEENT Vision grossly intact. Patent nares. Trachea midline. Facial droop - resolved Respiratory Chest normal on inspection and clear to auscultation bilaterally. Cardiovascular S1 and S2 audible, RRR. No murmurs or carotid bruit. No gross JVD. Abdominal Soft and non tender to palpation in all quadrants. BS + Genitourinary No bladder tenderness, no flank pain. Normal to palpation. Musculoskeletal Extremities tone within normal limits. No LE edema. Ambulating independently. Neurological CN II - XII grossly intact. Extremity motor and sensation grossly intact. Skin Warm, dry and intact. No apparent lesions. Psychiatric Patient has a good affect, is cooperative. Discharge Plan Plan Patient Disposition: HOME (Self Care) Disposition Comment: Returned to baseline Patient condition on transfer: Stable Prescriptions/Referrals Prescriptions/Med Rec: New aspirin 81 mg capsule 81 mg PO QDAY 30 Days Qty: 30 2RF atorvastatin 40 mg tablet 40 mg PO QPM 30 Days Qty: 30 0RF Continued lisinopril 10 MG tablet 10 mg PO QDAY Qty: 0 hydrocodone-acetaminophen 10-325 mg tablet 1 tab PO [id number] PRN (Reason: ARTHIRITIS PAIN) levothyroxine 88 mcg tablet 88 mcg PO DAILY meclizine 25 mg tablet 25 mg PO TID PRN (Reason: Vertigo) Referrals: Jami Beasley PA-C [Primary Care Provider] - Patient/Caregiver Discharge Instructions Meds to Beds: Yes Discharge Activity: activity as tolerated and resume usual activities Other Discharge Activity Instructions:: - Follow up with PCP in 1 week from discharge - Get referral to see Neurologist Dr Alcaraz in 2 weeks from discharge - Take daily low dose Aspirin 81mg - Take Atorvastatin 40mg daily for stroke prevention - Advise close monitoring of RT thyroid nodule - Exercise and walking recommended, as tolerated - Return to ED if symptoms worsen Education Materials: Effects of a Stroke on the ..., What Is a TIA?, Stroke Prevention Activity, Exercises to Prevent Falls Print Language: Armenian Stand Alone Forms: [employer] Award Info., Patient Portal Info Letter Discharge Order Discharge Orders: Discharge (Routine); Ordered 07/17/24 Ordered By: Brennen Hopson Quality Discharge Quality Measures stroke Statin ordered >75 y/o:moderate or high intensity dose on DC: yes Statin ordered <75 y/o: high intensity dose on DC: n/a Statin not ordered due to:: not indicated Anticoagulation ordered for A-fib or flutter (current or hx): not indicated Antithrombotic ordered on DC: not indicated (describe) MD Attestestation MD Attestation I reviewed labs, imaging, EKG, home medications and prior available records. Face to face evaluation was performed by me. I have personally examined the patient and discussed assessment and plan with the IM team. I reviewed the resident note and agree with the plan with exceptions as below. CVA symptoms: Likely TIA. Patient's symptoms are improving. Follow-up MRI: Negative for acute changes. Follow-up PT. Follow-up CTA head/neck: Negative for major occlusions. Continue aspirin and atorvastatin. Time spent is 40 minutes. More than 50% of the time was spent on patient education and coordination of care.
[2024-07-17 12:00] VITALS: BP 149/100; PULSE 67; RESP 16; TEMP 36.1; O2SAT 98
[2024-07-17 12:21] VITALS: BP 149/100; PULSE 67
[2024-07-17] MEDS: Lisinopril 2.5 MG TABLET 10 MG PO (12:21)
[2024-07-17 13:29] VITALS: BP 146/92
--- NOTE | 2024-07-17 14:10 | PC.NURSE ---
made aware of pt current bp after lisinopril dose. md prasadayed to dc pt
--- NOTE | 2024-07-17 19:10 | PD.VPROG1 ---
Telemedicine visit statement This visit was conducted with the use of phone was obtained on 07/17/24. Documentation for date of: 07/17/24 Subjective Subjective Interval history: Patient is in MedSurg, no new symptoms reported or recurrent's of similar episode after admission Virtual exam Vital Signs Temp Pulse Resp BP Pulse Ox O2 Del Method 97.0 F 67 16 146/92 H 98 Room Air 07/17/24 12:00 07/17/24 12:21 07/17/24 12:00 07/17/24 13:29 07/17/24 12:00 07/17/24 12:00 Objective Labs 07/17/24 05:13 07/17/24 05:13 Labs: Laboratory Results - last 24 hr 07/17/24 05:13 WBC 4.4 RBC 3.60 L Hgb 11.1 L Hct 32.7 L MCV 91 MCH 30.8 MCHC 33.9 RDW Std Deviation 44.5 Plt Count 176 Neut % (Auto) 56 Lymph % (Auto) 30 [place] % (Auto) 11 Eos % (Auto) 3 Baso % (Auto) 0 Neut # (Auto) 2.5 Lymph # (Auto) 1.3 [place] # (Auto) 0.5 Eos # (Auto) 0.1 Baso # (Auto) 0.0 Immature Gran # (Auto) 0.02 H Absolute Nucleated RBC 0.00 Immature Gran % 1 H Nucleated RBC % 0 Sodium 138 Potassium 3.8 Chloride 105 Carbon Dioxide 26.2 Anion Gap 7 BUN 11 Creatinine 0.6 Estim Creat Clear Calc Not Performed. eGFR > 60 BUN/Creatinine Ratio 18 Glucose 94 Calculated Osmolality 275 Calcium 9.4 Assessment & Plan Problem List (1) TIA (transient ischemic attack): Status: Acute Assessment and plan: Resolved, reassurance given to the patient regarding the negative workup including CT and MRI brain. Patient is stable from neurology standpoint for discharge on aspirin and statin. Follow-up in 2 weeks (2) Dizziness: Status: Chronic Assessment and plan: Most likely vertigo from inner ear (3) Hypothyroidism: Status: Chronic Assessment and plan: Continue with the levothyroxine (4) Hypertension: Status: Chronic Assessment and plan: Continue home meds: Lisinopril
== END 2024-07-17 15:08 | disposition home or self-care (01) ==
LOC: SERX 21:44 → S3SX 07-17 11:03 → SERHOLD 07-18 05:09 → S3SX 07-18 05:10 → SERHOLD 07-18 05:10 → S2NX 07-18 05:10
PROVIDERS: Nurse Practitioner Primary Care; Student in an Organized Health Care Education/Training Program; Admitting Provider Internal Medicine; Emergency Provider Emergency Medicine; PCP Specialist; Visit Provider Internal Medicine
DX: R29.810 Facial weakness (principal); I10 Essential (primary) hypertension; I73.9 Peripheral vascular disease, unspecified; I87.2 Venous insufficiency (chronic) (peripheral); E04.1 Nontoxic single thyroid nodule; E03.9 Hypothyroidism, unspecified; D64.9 Anemia, unspecified; I65.22 Occlusion and stenosis of left carotid artery
CPT/HCPCS: 36415; 70450; 70496; 70498; 70544; 80048; 80053; 80061; 80307; 81001; 82728; 83036; 83540; 83550; 83615; 83735; 83880; 84100; 84443; 84484; 85025; 85610; 85730; 93970; 96372; 97161; 99291; A4649; G0378; J1643; Q9967; A9270; J1644

== ENCOUNTER 2024-07-26 10:37 | Inpatient (IN) | payer OTHER, MEDICARE, SELFPAY ==
[2024-07-26] VITALS (16 sets, daily range): BP systolic 110–142; BP diastolic 63–83; PULSE 83–99; RESP 16–100; TEMP 36.9–37.2; O2SAT 97–100; BMI 33.7
--- NOTE | 2024-07-26 10:42 | EKG_ITS ---
[facility] Test Date: 2024-07-26 Pat Name: SANFORD YE Department: Room: - Gender: Female Marketing Information Coordinator: : 1950 Requested By: ED Temporary Provider Order Number: [id number] Reading MD: ED Temporary Provider Measurements Intervals [place] Rate: 82 P: 40 WA: 144 QRS: 48 QRSD: 85 T: 29 QT: 377 QTc: 440 Interpretive Statements SINUS RHYTHM Compared to ECG 10/15/2022 09:08:20 No significant changes /store/S0/[id number].pdf
--- NOTE | 2024-07-26 10:52 | XR_ITS ---
Examination: AP chest single view TECHNIQUE: AP portable upright chest single view Exam date and time: July 26, 2024 1122 hours INDICATIONS: Chest pain beginning 2 days ago. FINDINGS: Normal heart size Lungs are clear. The osseous structures are intact IMPRESSION: No active disease
--- NOTE | 2024-07-26 11:10 | PC.NURSE ---
Pt. here from home to bed 5, pt.'s daughter is with pt., pt. is pale and shaking, pt. was seen in [place] ER yesterday for being pale and daughter states when pt. stands up she gets very sweaty. Pt. states she is dizzy X 3 weeks. Pt. states she has high blood pressure but lately it has been going low. Pt. states she is having black stools X 4 or 5 days. Pt. states she has lower quadrant abdominal pain and vomited X 1 this morning.
[2024-07-26 11:41] LABS: Basophils % (Auto) 0 % (0-2.5); Eosinophils % (Auto) 0 % (0-10); Immature Granulocytes % (Auto) 1 % (0-0); Immature Granulocytes Auto 0.08 Thou/mm3 (0.00-0.00); Lymphocytes # (Auto) 2.6 Thou/mm3 (1.0-4.8); Lymphocytes % (Auto) 24 % (10-50); Mean Corpuscular HGB Conc 33.9 g/dl (31.0-37.0); Mean Corpuscular Hemoglobin 31.6 pg (25.0-35.0); Mean Corpuscular Volume 93 fL (80-100); Monocytes # (Auto) 0.6 Thou/mm3 (0.0-0.8); Monocytes % (Auto) 5 % (0-12); Neutrophils # (Auto) 7.4 Thou/mm3 (1.8-7.7); Neutrophils % (Auto) 69 % (37-80); Nucleated Red Blood Cell % 0 /100 WBC (0); Platelet Count 202 Thou/mm3 (140-440); RDW Standard Deviation 46.7 fL (36.4-46.3); Red Blood Count 1.77 Miln/mm3 (4.00-5.20); White Blood Count 10.7 Thou/mm3 (3.6-11.0)
[2024-07-26 11:49] LABS: Hemoglobin 5.6 g/dL (12.0-16.0)
[2024-07-26 11:50] LABS: Hematocrit 16.5 % (36.0-46.0)
[2024-07-26 11:56] LABS: INR 1.1 (0.9-1.3); Partial Thromboplastin Time 20.7 Seconds (22.0-36.0); Prothrombin Time 11.5 Seconds (9.0-12.2)
--- NOTE | 2024-07-26 11:56 | PD.EDADULT ---
ED General RME/HPI General Chief complaint: Weakness Stated complaint: SENT BY PMD FOR LOW BP Time Seen by Provider: 07/26/24 11:24 Arrival date/time: 07/26/24 10:37 RME / HPI RME / HPI narrative: A 74-year-old female with past history of chronic vertigo (likely BPPV), PAD with persistent claudication and angioplasty in the past, hypertension, hypothyroidism, and rheumatoid arthritis presents in the ED with a chief complaint of dizziness x 4 days. Patient endorses 4 days of ago she started having passing hard dark stool. She also endorsed diffuse epigastric pain prior to passing stool. Patient states that she was recently here at the hospital over 1 week ago for similar presentation. Today she had an appointment with her PCP Ino at [facility] in [place], [place]. Her PCP today recommended her to come into the emergency room for low blood pressure-- the blood pressure cuff was unable to take her BP in clinic earlier. Patient appears pale and says this is unusual for her. In the ED, she has a BP 115/79, HR 83, RR 18, temperature 98.7 F, O2 sat 100% room air, hemoglobin of 5.6, and hct of 16.5. MD complaint: dizziness + GI bleed Onset (ago): day(s) Location: abdomen Severity: moderate Consistency: intermittent Relieving factors: none Treatments prior to arrival: none Related Data Home Medications ?Medication ?Instructions ?Recorded ?Confirmed lisinopril 10 mg tablet 10 mg PO QDAY High Blood Pressure 05/09/15 07/16/24 #0 tabs hydrocodone 10 mg-acetaminophen 1 tab PO [id number] PRN ARTHIRITIS 07/16/24 07/16/24 325 mg tablet PAIN levothyroxine 88 mcg tablet 88 mcg PO DAILY 07/16/24 07/16/24 meclizine 25 mg tablet 25 mg PO TID PRN Vertigo 07/16/24 07/16/24 Previous Rx's ?Medication ?Instructions ?Recorded aspirin 81 mg capsule 81 mg PO QDAY 1 month #30 caps 07/17/24 atorvastatin 40 mg tablet 40 mg PO QPM 1 month #30 tabs 07/17/24 Allergies Allergy/AdvReac Type Severity Reaction Status Date / Time No Known Allergies Allergy Verified 07/26/24 10:41 Review of Systems Review of Systems Systems Reviewed: All systems reviewed, normal except as documented ED Exam Narrative Physical exam: Constitutional: well-developed, well-nourished, pale face, lying in bed. HEENT: NCAT, EOMI, reactive round pupils b/l, patent nares b/l, moist mucous membranes, on room air. Lung: CTAB, no wheezing, no rhonchi, no crackles. Heart: Regular S1S2, no murmurs, gallops, or rubs Abdomen: Soft, non-distended, non-tender, ++bowel sounds. Fecal occult +. Extremities: No cyanosis, clubbing, 1+ edema of b/l legs, 2+ dorsalis pedis pulses present b/l. ROM intact. Neurologic: No focal sensory or motor deficits noted, AOx3, appropriate affect Skin: Warm, dry, no lesions or rashes noted Course Quality Measures none Orders Category Date Time Status COVID-19 Screening Questionnaire NOW Care 07/26/24 13:51 Active Sheet [employer] Supervisor NOW Care 07/26/24 10:52 Active Decision to Admit X1 Care 07/26/24 13:51 Active EKG (ED ONLY) *Do not use* NOW Care 07/26/24 10:42 Completed EKG (ED ONLY) *Do not use* NOW Care 07/26/24 13:46 Active Insert IV NOW Care 07/26/24 10:52 Active NPO after Midnight ONCE Care 07/26/24 12:54 Active Occult Blood,Stool (Nursing) NOW Care 07/26/24 11:58 Active Transfuse,blood/blood products NOW Care 07/26/24 11:51 Active Consult to Gastroenterology Stat Cons 07/26/24 12:35 Ordered Diet Clear Liquid Diet 07/26/24 Lunch Active Diet NPO after Midnight Diet 07/27/24 00:01 Active EKG (ED Only) Stat Exams 07/26/24 10:42 Draft EKG (ED Only) Stat Exams 07/26/24 13:46 Draft XR chest 1V portable Stat Exams 07/26/24 10:52 Completed B-Type Natriuretic Peptide Stat Lab 07/26/24 11:17 Completed CBC Stat Lab 07/26/24 11:17 Completed Comprehensive Metabolic Panel Stat Lab 07/26/24 11:17 Completed Hgb and Hct Post-Transfusion Routine Lab 07/26/24 11:51 Ordered Lactate (Lactic Acid) Stat Lab 07/26/24 13:47 Ordered Magnesium Stat Lab 07/26/24 11:17 Completed Partial Thromboplastin Time Stat Lab 07/26/24 11:17 Completed Path Review Blood Smear Stat Lab 07/26/24 11:17 Completed Prothrombin Time with INR Stat Lab 07/26/24 11:17 Completed Troponin I Stat Lab 07/26/24 11:17 Completed Troponin I Stat Lab 07/26/24 13:47 Ordered Type and Screen Stat Lab 07/26/24 11:17 Completed Urinalysis Stat Lab 07/26/24 10:52 Ordered Pantoprazole Inj [Protonix Inj] Med 07/26/24 11:58 Discontinued 40 mg IV X1 ONE Sodium Chloride 0.9% 1000 ml [Ns] 1,000 ml Med 07/26/24 12:00 Discontinued IV 999 mls/hr Sodium Chloride 0.9% 1000 ml [Ns] 1,000 ml Med 07/26/24 12:06 Discontinued IV 999 mls/hr Vital Signs Vital signs: Vital Signs Temperature 98.4 F 07/26/24 11:04 [facility] Patient data External records reviewed:: [facility] previous records and None Clinical information provided by:: patient Social determinants that could affect healthcare access:: none Patient has the following chronic illnesses:: History of chronic vertigo (likely BPPV), PAD with persistent claudication and angioplasty in the past, hypertension, hypothyroidism, and rheumatoid arthritis How is presenting disease/condition affected by chronic disease/condition?: exacerbated by Evaluation data The following diagnostics were reviewed and interpreted by me:: lab results Lab and/or radiology exams considered but not ordered:: None Interpretation Summary: Chest x-ray: No active disease, no pulmonary edema, no pneumonia. EKG: Sinus rhythm, heart rate 82. Chloride 110, bicarb 19.1, BUN 48, creatinine 0.5. Hemoglobin of 5.6, and hct of 16.5. Medications Medications considered but not ordered:: None Medication administrations:: Medication Administration History Discontinued Medications Sodium Chloride (Ns) 1,000 mls @ 999 mls/hr IV .Q1H1M ONE Stop: 07/26/24 13:00 Last Admin: 07/26/24 12:43 Dose: 999 mls/hr Documented By: ED Sodium Chloride (Ns) 1,000 mls @ 999 mls/hr IV .Q1H1M ONE Stop: 07/26/24 13:06 Last Admin: 07/26/24 12:48 Dose: 999 mls/hr Documented By: ED Pantoprazole Sodium (Pantoprazole Inj 40 Mg Vial) 40 mg IV X1 ONE Stop: 07/26/24 11:59 Last Admin: 07/26/24 12:37 Dose: 40 mg Documented By: ED IV normal saline and pantoprazole Consultations Consultation(s) initiated? (list below): Yes Consultation #1 (Physician, Specialty, Details): Dr. Stevenson, [employer]. 12:50pm Diagnosis Differential Diagnosis ED Complaint MDM: Upper GI bleed Most likely diagnosis given after review of the tests above:: Lower GI bleed Admission Indicated Admission indicated?: indicated Explain why admission is indicated or not indicated:: Admission is indicated as patient has active GI bleed per rectum with positive stool occult blood test. She also has 4 days of dark stool. This morning she admits to hematemesis. Hemoglobin of 5.6, hct of 16.5. She requires blood transfusion. Admission Request Was there a request for admission?: Yes Admission Attestation Admission request attestation: Discussed case with Dr. Holcomb from Hospitalist service regarding admission. Discussed patients ED course, exam findings, labs, and radiology results. The Hospitalist agrees to accept the patient for admission. Disposition Plan Disposition Plan: Admit Medical Decision Making MDM Narrative MDM Narrative: A 74-year-old female with past history of chronic vertigo (likely BPPV), PAD with persistent claudication and angioplasty in the past, hypertension, hypothyroidism, and rheumatoid arthritis presents in the ED with a chief complaint of dizziness x 4 days. Patient endorses 4 days of ago she started having passing hard dark stool. She also endorsed diffuse epigastric pain prior to passing stool. Patient states that she was recently here at the hospital over 1 week ago for similar presentation. Today she had an appointment with her PCP Ino at [facility] in [place], [place]. Her PCP today recommended her to come into the emergency room for low blood pressure. In the ED, she has a BP 115/79, HR 83, RR 18, temperature 98.7 F, O2 sat 100% room air, hemoglobin of 5.6, and hct of 16.5. 3 units pRBC transfused and post-transfusion H + H ordered. Fecal occult test resulted positive. Pantoprazole and IVF given in the ED. I personally consulted Dr. Stevenson who states to begin clear liquid diet, followed by n.p.o. after midnight. Patient will be scheduled for endoscopy tomorrow 07/27/2024 to be completed by Dr. Stevenson, [employer]. Hospitalist team agrees to continue with plan of care. Differential Diagnosis Differential Diagnosis: Upper GI bleed Medical Records Medical records reviewed: Yes I reviewed the patient's medical records. Lab Data Lab results reviewed: Yes I reviewed the patient's lab results. 07/26/24 11:17 07/26/24 11:17 Labs: Lab Results 07/26/24 Range/Units 11:17 WBC 10.7 (3.6-11.0) Thou/mm3 RBC 1.77 L* (4.00-5.20) Miln/mm3 Hgb 5.6 L* (12.0-16.0) g/dL Hct 16.5 L* (36.0-46.0) % MCV 93 (80-100) fL MCH 31.6 (25.0-35.0) pg MCHC 33.9 (31.0-37.0) g/dl RDW Std Deviation 46.7 H (36.4-46.3) fL Plt Count 202 (140-440) Thou/mm3 Neut % (Auto) 69 (37-80) % Lymph % (Auto) 24 (10-50) % [place] % (Auto) 5 (0-12) % Eos % (Auto) 0 (0-10) % Baso % (Auto) 0 (0-2.5) % Neut # (Auto) 7.4 (1.8-7.7) Thou/mm3 Lymph # (Auto) 2.6 (1.0-4.8) Thou/mm3 [place] # (Auto) 0.6 (0.0-0.8) Thou/mm3 Eos # (Auto) 0.0 (0.0-0.5) Thou/mm3 Baso # (Auto) 0.0 (0.0-0.2) Thou/mm3 Immature Gran # (Auto) 0.08 H (0.00-0.00) Thou/mm3 Absolute Nucleated RBC 0.00 (0.00-0.00) Thou/mm3 Immature Gran % 1 H (0-0) % Nucleated RBC % 0 (0) /100 WBC Smear Path Review Sent to Pathologist PT 11.5 (9.0-12.2) Seconds INR 1.1 (0.9-1.3) APTT 20.7 L (22.0-36.0) Seconds Sodium 138 (136-145) mMol/L Potassium 3.9 (3.4-5.1) mMol/L Chloride 110 H (98-107) mMol/L Carbon Dioxide 19.1 L (20.0-31.0) mMol/L Anion Gap 9 (7-16) BUN 48 H (9-23) mg/dL Creatinine 0.5 L (0.6-1.3) mg/dL Estim Creat Clear Calc 87.6 (>60) mL/min eGFR > 60 (60 - ) See Note BUN/Creatinine Ratio 96 H (12-20) Ratio Glucose 126 H (74-106) mg/dL Calculated Osmolality 290 (275-295) Calcium 8.8 (8.3-10.6) mg/dL Corrected Calcium 9.4 (8.5-10.1) mg/dL Magnesium 1.7 (1.6-2.6) mg/dL Total Bilirubin 0.3 (0.3-1.2) mg/dL AST 17 (0-34) U/L ALT 15 (10-49) U/L Alkaline Phosphatase 52 (46-116) U/L Troponin I 0.020 (0.0-0.045) ng/mL B-Natriuretic Peptide 48 (0-100) pg/mL Total Protein 5.2 L (5.7-8.2) gm/dL Albumin 3.3 L (3.4-4.8) gm/dL Globulin 1.9 L (2.3-3.5) gm/dL Albumin/Globulin Ratio 1.7 (1.2-2.2) Blood Type O Positive Antibody Screen NEGATIVE Blood Bank Wristband ID Yes Discharge Plan Plan Patient Disposition: Admit Acute Care w/in Hospital Prescriptions/Referrals Prescriptions/Med Rec: No Action lisinopril 10 MG tablet 10 mg PO QDAY Qty: 0 hydrocodone-acetaminophen 10-325 mg tablet 1 tab PO [id number] PRN (Reason: ARTHIRITIS PAIN) levothyroxine 88 mcg tablet 88 mcg PO DAILY meclizine 25 mg tablet 25 mg PO TID PRN (Reason: Vertigo) aspirin 81 mg capsule 81 mg PO QDAY 30 Days Qty: 30 2RF atorvastatin 40 mg tablet 40 mg PO QPM 30 Days Qty: 30 0RF Referrals: Ino Beasley [Primary Care Provider] - In 1 week Problem List Clinical Impression: GI (gastrointestinal bleed), Anemia Patient/Caregiver Discharge Instructions Print Language: Lao Stand Alone Forms: [employer] Award Info., Patient Portal Info Letter
[2024-07-26 11:57] LABS: B-Type Natriuretic Peptide 48 pg/mL (0-100)
[2024-07-26 12:09] LABS: Alanine Aminotransferase 15 U/L (10-49); Albumin, Serum 3.3 gm/dL (3.4-4.8); Albumin/Globulin Ratio 1.7 (1.2-2.2); Alkaline Phosphatase 52 U/L (46-116); Anion Gap 9 (7-16); Aspartate Amino Transferase 17 U/L (0-34); BUN/Creatinine Ratio 96 Ratio (12-20); Bilirubin,Total 0.3 mg/dL (0.3-1.2); Blood Urea Nitrogen 48 mg/dL (9-23); Calcium 8.8 mg/dL (8.3-10.6); Calcium (Corrected) 9.4 mg/dL (8.5-10.1); Carbon Dioxide 19.1 mMol/L (20.0-31.0); Chloride 110 mMol/L (98-107); Creatinine (Component) 0.5 mg/dL (0.6-1.3); Estimated Creatinine Clearance 87.6 mL/min (>60); Globulin 1.9 gm/dL (2.3-3.5); Glucose 126 mg/dL (74-106); Magnesium 1.7 mg/dL (1.6-2.6); Osmolality,Calculated 290 (275-295); Potassium 3.9 mMol/L (3.4-5.1); Sodium 138 mMol/L (136-145); Total Protein 5.2 gm/dL (5.7-8.2); eGFR > 60 See Note
[2024-07-26] MEDS: PANTOPRAZOLE INJ 40 MG VIAL IV ×2 (12:37→22:35)
[2024-07-26 12:41] LABS: Path Review Blood Smear Sent to Pathologist
[2024-07-26] MEDS: SODIUM CHLORIDE 0.9% 1000 ML 1,000 ML 999 ML IV ×2 (12:43→12:48)
--- NOTE | 2024-07-26 13:46 | EKG_ITS ---
[facility] Test Date: 2024-07-26 Pat Name: SANFORD YE Department: Room: - Gender: Female Tub Puller: : 1950 Requested By: Tomas Pak Order Number: [id number] Reading MD: Tomas Pak Measurements Intervals [place]ins Rate: 95 P: 48 PA: 152 QRS: 58 QRSD: 83 T: 8 QT: 364 QTc: 460 Interpretive Statements SINUS RHYTHM NONSPECIFIC ST & T-WAVE ABNORMALITY Compared to ECG 07/26/2024 11:25:16 T-wave abnormality now present /store/S0/[id number].pdf
--- NOTE | 2024-07-26 13:47 | PC.NURSE ---
Dr. Nicolas bedside, talking with pt. pt. states she is having chest pressure stat EKG done and results given to Dr. Nicolas. Pt.'s daughter is bedside.
[2024-07-26 14:15] LABS: Lactate (Lactic Acid) 1.2 mMol/L (0.4-2.0)
--- NOTE | 2024-07-26 14:53 | ESHP_ITS ---
<Statement entered by Adrien Holcomb MD - 07/26/24 17:18> This patient 74-year-old female with past medical history of possible CHF, TIA on aspirin, hypertension presented to the ED with episode of hematemesis x 1 and dark stools x 2 days ago. Patient was found to have an hemoglobin of 5.6 and per chart review patient was recently started on Plavix and aspirin was discontinued. Patient follows up with Dr. Lai, arresting gear operator as outpatient. Patient was also taking ibuprofen per chart review for her osteoarthritis. Patient's daughter was present at bedside and reported the patient has been having dark stools from past couple of days and has been feeling weak and shiver. GI specialist has been consulted and he recommended to keep the patient n.p.o. after midnight and he will likely perform endoscopy tomorrow morning. We are currently transfusing 2 units PRBC and will follow-up on post H&H. Continue Protonix 40 mg IV twice daily. Holding her blood pressure medication given soft blood pressure. Continue levothyroxine patient's home medication. Patient had mild chest pain and therefore EKG and troponin I was ordered. EKG showed some ST-T depressions in anterior leads V1?V4. Troponin I was negative. Will likely closely monitor her. All labs and orders were reviewed. I saw and examined the patient, and I agree with current management stated by Dr Maria Isabel MD,PGY1. Plan of care was discussed with the attending physician and resident physician. Disclaimer: Despite multiple revisions, due to the dictation software being used, the document bellow may not be free of grammatical errors including phonetic/typographic errors. However, this does not deter from our commitment to providing health care in the patient's best interest in mind. Dr. Zhang MD, PGY 2 Documentation for date of: 07/26/24 HPI History of Present Illness Chief complaint: Weakness and palpitations History of present illness: HPI: Seen with both daughters at bedside. Patient is a 74-year-old female with a past medical history of essential hypertension, hypothyroidism, vertigo, rheumatoid arthritis,? PAD,? Chronic venous insufficiency. She presented today with a chief complaint of dizziness, weakness and palpitations. According to patient's daughter she began experiencing episodes of dark stools about 3-4 days ago and yesterday she experienced an episode of dark brown vomiting. She describes her stools as dark and sticky, denied any hematochezia, diarrhea, constipation. Also denies history of iron tablets use. Vomiting was described as dark brown/coffee-ground and was only 1 episode yesterday. Since yesterday she also had a decreased appetite . Patient also endorses a history of postprandial epigastric burning. Denies any hematemesis, bilious vomiting, food contents. Upon review she also endorsed associated SOB, palpitations and intermittent dizziness. She also endorses a history of intermittent dizziness with a questionable history of BPPV. ED course: BP 115/71, pulse 83, RR 18, T98.4F, SpO2 100% on room air. Labs significant for Hb is 5.6, HCT 16.5, BUN 48, CR 0.5, Trop negative x 2. EKG significant for sinus rhythm, rate [address] depression in V4, V5, lead II. Q waves in aVR. CXR negative for any consolidation, pulmonary edema or pleural effusion. Patient received pantoprazole 40 Mg IV x 1, 2L NS IVF bolus Patient will be admitted for acute blood loss anemia secondary to GI bleed for investigation. GI, Dr. Stevenson was consulted Patient was seen and discussed with attending physician, Dr. Fan and resident physician, , PGY1 and Dr. Holcomb, PGY 2 [employer] Review of Systems Review of Systems Narrative Review of Systems: GENERAL: Denies fever/chills or diaphoresis. HEENT: Denies headaches or visual changes. Denies discharge. Neuro: Denies difficulty speaking. CARDIO: Denies chest pain, PND, orthopnea PULM: Denies SOB, couging or wheezing. GI: As above URO: Denies buring/itching/pain/urinary changes. FLASK CARRIER: hysterectomy MSK/EXT/SKIN: Denies joint/skeletal/muschle pain, issues/changes in upper or lower extremities, itchiness, or superficial pain. The rest of the review of systems is otherwise negative. Constitutional Constitutional: Reports chills ENT Ears, Nose, Mouth, and Throat: Reports dizziness Cardiovascular Cardiovascular: Reports chest pain at rest and Reports pedal edema Gastrointestinal Gastrointestinal: Reports abdominal pain, Reports change in bowel habits, Reports change in stool character, Reports melena and Reports vomiting Neurologic Neurologic: Reports dizziness Past Medical History Past Medical History CARDIAC: Positive Hypertension MUSCULOSKELETAL: Positive Rheumatoid Arthritis ENDOCRINE: Positive Hypothyroidism Surgical History OTHER SURGICAL HX: and tubal ligation Social History SOCIAL: Denies smoking, drinking, and drug use. Retired from work Past Medical History Comments PMH COMMENT: Past medical history: ? Essential hypertension ? Hypothyroidism ? vertigo ? Rheumatoid arthritis ?? PAD ?? Chronic venous insufficiency Past surgical history: ? LSCS x 26 years ago ?? Varicose vein stripping ?? 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 A&Ox3 HEENT:Pale and Dry mucosa. Eyes open, symmetrical, & clear CARDIO: Heart RRR, no obvious murmurs PULM:lungs clear to auscultation. No wheezes, rales, or rhonci GI: Abdomen soft and slightly tender to suprapubic area SKIN/MSK/EXT: Patient appears pale and cold to touch Results: Labs 07/27/24 13:37 07/27/24 02:30 Labs: Short CBC 07/26/24 Range/Units 11:17 WBC 10.7 (3.6-11.0) Thou/mm3 Hgb 5.6 L* (12.0-16.0) g/dL Hct 16.5 L* (36.0-46.0) % Plt Count 202 (140-440) Thou/mm3 BMP 07/26/24 11:17 Sodium 138 Potassium 3.9 Chloride 110 H Carbon Dioxide 19.1 L BUN 48 H Creatinine 0.5 L Glucose 126 H Calcium 8.8 Cardiac Enzymes 07/26/24 07/26/24 Range/Units 11:17 13:54 Troponin I 0.020 0.020 (0.0-0.045) ng/mL Liver Function 12/17/24 Range/Units 11:17 Total Bilirubin 0.3 (0.3-1.2) mg/dL AST 17 (0-34) U/L ALT 15 (10-49) U/L Alkaline Phosphatase 52 (46-116) U/L Albumin 3.3 L (3.4-4.8) gm/dL ECG Data Tracing #1: ECG Narrative: NONSPECIFIC ST & T-WAVE ABNORMALITY Imaging and Cardiology Chest x-ray: Additional comments: No active disease process Quality Measures Quality Measures none Advance care planning discussed with:: other Medications Home Medications and Allergies Home Medications ?Medication ?Instructions ?Recorded ?Confirmed ?Type lisinopril 10 mg tablet 10 mg PO QDAY High Blood Pressure 05/09/15 07/16/24 History #0 tabs hydrocodone 10 mg-acetaminophen 1 tab PO [id number] PRN ARTHIRITIS 07/16/24 07/16/24 History 325 mg tablet PAIN levothyroxine 88 mcg tablet 88 mcg PO DAILY 07/16/24 07/16/24 History meclizine 25 mg tablet 25 mg PO TID PRN Vertigo 07/16/24 07/16/24 History atorvastatin 40 mg tablet mg 07/26/24 History clopidogrel 75 mg tablet mg 07/26/24 History ibuprofen 800 mg tablet mg 07/26/24 History levothyroxine 75 mcg tablet mcg 07/26/24 History lisinopril 10 mg tablet mg 07/26/24 History meclizine 25 mg tablet mg 07/26/24 History Allergies Allergy/AdvReac Type Severity Reaction Status Date / Time No Known Allergies Allergy Verified 07/26/24 10:41 Visit Medications Acetaminophen (Acetaminophen 325 Mg Tablet) 650 mg PO Q6H PRN PRN Reason: Fever >100.4 or pain Stop: 08/25/24 13:46 Hydrocodone Bitart/Acetaminophen (Hydrocodone/Apap 5/325 Tablet) 1 tab PO Q4HR PRN PRN Reason: PAIN SCALE 4-6 (Moderate Stop: 07/31/24 13:46 Levothyroxine Sodium (Levothyroxine Sodium 25 Mcg Tablet) 75 mcg PO ACBR SATHYA Stop: 08/26/24 05:59 Morphine Sulfate (Morphine Sulf Inj 10 Mg/Ml Vial) 1 mg IVP Q4HR PRN PRN Reason: PAIN SCALE 7-10 (Severe Stop: 07/31/24 13:46 Ondansetron HCl (Ondansetron Inj 2 Mg/Ml Inj 2 Ml) 4 mg IV Q6H PRN; Protocol PRN Reason: NAUSEA OR VOMITING Stop: 08/25/24 13:46 Pantoprazole Sodium (Pantoprazole Inj 40 Mg Vial) 40 mg IV BID SATHYA Stop: 08/25/24 20:59 Discontinued Medications Sodium Chloride (Ns) 1,000 mls @ 999 mls/hr IV .Q1H1M ONE Stop: 07/26/24 13:00 Last Admin: 07/26/24 12:43 Dose: 999 mls/hr Sodium Chloride (Ns) 1,000 mls @ 999 mls/hr IV .Q1H1M ONE Stop: 07/26/24 13:06 Last Admin: 07/26/24 12:48 Dose: 999 mls/hr Pantoprazole Sodium (Pantoprazole Inj 40 Mg Vial) 40 mg IV X1 ONE Stop: 07/26/24 11:59 Last Admin: 07/26/24 12:37 Dose: 40 mg Assessment & Plan Plan Patient is a 74-year-old female with a past medical history of essential hypertension, hypothyroidism, vertigo, rheumatoid arthritis,? PAD,? Chronic venous insufficiency. She presented with palpitations, weakness and coffee- ground emesis. Admitted for acute blood loss anemia secondary to GI bleed for investigation. 1. Symptomatic acute blood loss anemia Secondary to 2. GI bleed for investigation 3. Palpitations 4. Weakness Patient presented with history of coffee-ground emesis, melena with associated palpitations and weakness. On exam she had pale mucous membranes and was cold to touch. Patient received 2L normal saline IVF bolus in the ED and received Protonix 40 Mg IV x 1 Ddx: Peptic ulcer disease, perforated viscus, diverticular bleed Hb on admission 5.6 down trended to 4.5 Plan: ? Clear liquid diet ? Pantoprazole 40 Mg IV twice daily ?2 units PRBC for transfusion stat ? Repeat H&H ? N.p.o. from midnight ?For EGD tomorrow ? GI, Dr. Stevenson consulted and is closely following the case. Appreciate recommendations 5. B/L lower extremity swelling 6.? PAD 7.? Chronic venous insufficiency On exam patient has B/L lower extremity swelling and a history of possible B/L lower extremity angioplasty versus varicose vein stripping. Patient unsure of procedure as well as daughters present at bedside. Patient was on dual antiplatelet therapy with aspirin and Plavix prior to admission for the above. Plan: ? B/L lower extremity IRVING duplex US ordered 8. Essential hypertension Will hold antihypertensives for now as patient has symptomatic anemia and is normotensive 9. Hypothyroidism Patient's home medication levothyroxine 75 mcg p.o. daily Plan: ? TSH ordered ? Resumed home medication levothyroxine 75 mcg p.o. daily 10. Vertigo Possible history of BPPV patient was on meclizine at home and endorses frequent episodes of dizziness Home medication meclizine 25 Mg p.o. 3 times daily as needed. Will hold for now Health maintenance: Disposition: PRBC infusion. EGD, GI consult Diet: CLear liquids, NPO from midnight Lines: pIVs GI Prophylaxis: Pantoprazole Thrombo Prophylaxis: SCDs Code status: FULL CODE Plan of care discussed with Attending Dr. Fan and PGY2 Dr. Zhang Nicolas MD PGY 1 Attending Provider Attestation/Addendum I, Rosio Fan, , attest that I was physically present for the rachel portions of the service and evaluated the patient with the resident and I reviewed and discussed the case with the resident and agree with the resident's findings and plans of care as documented above Patient 74-year-old female with past medical history of TIA, hypertension, suspected PAD, varicose who presented to the ED with progressively worsening generalized weakness that began about 5 days ago. Patient was noted to be very pale, weak and diaphoretic yesterday which prompted her family to take her to the primary care clinic. She was subsequently referred to the ED due to undetectable BP per daughter at bedside. Upon presentation to the ED, patient was noted to have a blood pressure 115/71, heart rate of 83, temperature of 98.4 oxygen saturation of 100% on room air. Patient was recently admitted for TIA workup and was placed on Plavix and statin. She had previously been taking aspirin otherwise. Labs revealed WBC 10.7, hemoglobin 5.6, hematocrit 16.5 and platelets of 202. Patient endorsed having black stool for the past 5 days. She also admitted to having 2 episodes of diarrhea yesterday. She endorses shortness of breath and chest discomfort. Troponin with otherwise negative. EKG shows ST depressions, but unchanged from previous EKGs. She is otherwise sinus rhythm. GI was consulted from ED due to melena and acute blood loss anemia. Will place patient on Protonix 40 mg IV twice daily. Will place on clear liquid diet and plan for endoscopy tomorrow. N.p.o. after midnight. 2 units of PRBCs ordered for transfusion. Upon further questioning, patient endorsed having postprandial pain at times, which may likely be secondary to a gastric ulcer. She denies any history of endoscopy in the past. She also denies any personal or family history of GI malignancy. She denies any history of H. pylori as well. Will continue to trend hemoglobin at this time. Patient appears improved following 2 L of IV fluid bolus per daughter. Will monitor volume status as patient is noted to have 2+ bilateral lower extremity edema. Will admit to telemetry for further workup medical management of acute blood loss anemia secondary to GI bleed.
[2024-07-26] MEDS: Magnesium Sulfate 2 GM Ivpb 2 GM/50 ML BAG IV (15:54)
[2024-07-26 17:18] LABS: Collection Type, Urine Clean Catch
[2024-07-26 17:24] LABS: Bilirubin,Urine Negative (Negative); Blood,Urine 1+ (Negative); Clarity,Urine Clear (Clear/Hazy); Color,Urine Colorless (Lt Yel-Yel); Glucose, Urine Negative (Negative); Ketones,Urine Trace (Negative); Leukocyte Esterase,Urine Negative (Negative); Nitrite,Urine Negative (Negative); PH,Urine 5.5 (5.0-7.0); Protein,Urine Negative (Neg - Trace); RBC,Urine 2 /hpf (0-3); Specific Gravity,Urine 1.017 (1.001-1.035); Squamous Epithelial Cell,Urine 1 /hpf (0-5); Urobilinogen,Urine Negative mg/dL (0.0-1.0); WBC,Urine < 1 /hpf (0-5)
--- NOTE | 2024-07-26 17:52 | PC.NURSE ---
called lab and melisa Packer pt. has to have a second type and screen before pt. can receive blood.
[2024-07-26 18:04] LABS: Hemoglobin 4.5 g/dL (12.0-16.0)
[2024-07-26 18:05] LABS: Hematocrit 13.3 % (36.0-46.0)
[2024-07-26] MEDS: ACETAMINOPHEN 325 MG TABLET 650 MG PO (18:17)
--- NOTE | 2024-07-26 19:11 | PC.CC ---
Pt Yusra Rubin is a 74 yr old female admitted to hospitalist services for GI bleed. DIRECTOR RECREATION CC met with pt and her daughter Hannah Gerard [phone], at bedside to complete initial assessment. Pt is noted to be alert and oriented to person, place and situation. Pt noted to be very week and most information provided by daughter. Pt expressed understanding admission order. Pt able to confirm demographic information. Pt is from home [address] where she lives with her daughter Suzan.. Pt identifies her daughter Hannah as surrogate DM. At baseline pt reports being independent with ambulation and with completing his ADLs. Per daughter for the last several days pts has required assist in completing her ADLs. Pt does not require supplemental O2. Pt is not diabetic and is not on dialysis. Pt is followed by [facility] for primary care. At D/c pt will return home, with family providing transport.
--- NOTE | 2024-07-26 19:58 | PC.NURSE ---
REPORT GIVEN TO TONY CEDILLO AT [facility].
--- NOTE | 2024-07-26 21:50 | PD.IMCONS ---
HPI Data of Consult Requesting Physician: Rosio Fan DO Primary Care Provider: In[facility] Muro Consult Narrative Reason for consult: Melena, hematemesis, H/H 4.5/33.3 History of present illness: 74 years old female presented with dizziness and weakness and has a history of dark melanotic stools as well as an episode of coffee-ground hematemesis She was subsequently admitted getting blood transfusion She does have a history of peripheral arterial disease requiring angioplasty hypertension rheumatoid arthritis and chronic dizziness and vertigo cc:: cc: Rosio Fan DO Review of Systems Review of Systems Systems Reviewed: All systems reviewed, normal except as documented Meds Home Medications and Allergies Home Medications ?Medication ?Instructions ?Recorded ?Confirmed ?Type lisinopril 10 mg tablet 10 mg PO QDAY High Blood Pressure 05/09/15 07/16/24 History #0 tabs hydrocodone 10 mg-acetaminophen 1 tab PO [id number] PRN ARTHIRITIS 07/16/24 07/16/24 History 325 mg tablet PAIN levothyroxine 88 mcg tablet 88 mcg PO DAILY 07/16/24 07/16/24 History meclizine 25 mg tablet 25 mg PO TID PRN Vertigo 07/16/24 07/16/24 History atorvastatin 40 mg tablet mg 07/26/24 History clopidogrel 75 mg tablet mg 07/26/24 History ibuprofen 800 mg tablet mg 07/26/24 History levothyroxine 75 mcg tablet mcg 07/26/24 History lisinopril 10 mg tablet mg 07/26/24 History meclizine 25 mg tablet mg 07/26/24 History Allergies Allergy/AdvReac Type Severity Reaction Status Date / Time No Known Allergies Allergy Verified 07/26/24 10:41 Exam Vital Signs Temp Pulse Resp BP Pulse Ox O2 Del Method FiO2 98.4 F 84 18 133/78 H 100 Nasal Cannula 100 07/26/24 19:00 07/26/24 21:46 07/26/24 21:46 07/26/24 19:00 07/26/24 19:00 07/26/24 15:13 07/26/24 15:14 Routine Respiratory Exam Comments: Normal to auscultation Routine Abdominal Exam Comments: Soft nontender Results Labs 07/26/24 17:46 07/26/24 11:17 Labs: Short CBC 07/26/24 07/26/24 Range/Units 11:17 17:46 WBC 10.7 (3.6-11.0) Thou/mm3 Hgb 5.6 L* 4.5 L* (12.0-16.0) g/dL Hct 16.5 L* 13.3 L* (36.0-46.0) % Plt Count 202 (140-440) Thou/mm3 BMP 07/26/24 11:17 Sodium 138 Potassium 3.9 Chloride 110 H Carbon Dioxide 19.1 L BUN 48 H Creatinine 0.5 L Glucose 126 H Calcium 8.8 Cardiac Enzymes 07/26/24 07/26/24 Range/Units 11:17 13:54 Troponin I 0.020 0.020 (0.0-0.045) ng/mL Liver Function 07/26/24 Range/Units 11:17 Total Bilirubin 0.3 (0.3-1.2) mg/dL AST 17 (0-34) U/L ALT 15 (10-49) U/L Alkaline Phosphatase 52 (46-116) U/L Albumin 3.3 L (3.4-4.8) gm/dL Urine 07/26/24 Range/Units 17:04 Urine Color Colorless A (Lt Yel-Yel) Urine Clarity Clear (Clear/Hazy) Urine pH 5.5 (5.0-7.0) Ur Specific [place] 1.017 (1.001-1.035) Urine Protein Negative (Neg - Trace) Urine Glucose (UA) Negative (Negative) Assessment and Plan Additional Assessment & Plan Additional Plan: # Acute posthemorrhagic anemia with clinical presentation of melena and coffee-ground hematemesis in a patient who takes Plavix Plan Agree with the blood transfusion IV Protonix Serial CBC Consent obtained for fiberoptic esophagogastroduodenoscopy with possible therapeutic intervention under intravenous moderate sedation scheduled for tomorrow Clear liquid diet till 11 AM tomorrow then n.p.o. Other medical problems include # Peripheral vascular disease requiring intervention # Rheumatoid arthritis # Essential hypertension Thank you very much for the opportunity to participate in care of this patient
[2024-07-27] VITALS (21 sets, daily range): BP systolic 107–178; BP diastolic 62–95; PULSE 74–95; RESP 16–98; TEMP 36.1–37.3; O2SAT 94–100; BMI 33.6
[2024-07-27 02:51] LABS: Basophils % (Auto) 0 % (0-2.5); Eosinophils # (Auto) 0.1 Thou/mm3 (0.0-0.5); Eosinophils % (Auto) 1 % (0-10); Immature Granulocytes % (Auto) 0 % (0-0); Immature Granulocytes Auto 0.02 Thou/mm3 (0.00-0.00); Lymphocytes # (Auto) 1.7 Thou/mm3 (1.0-4.8); Lymphocytes % (Auto) 27 % (10-50); Mean Corpuscular HGB Conc 34.9 g/dl (31.0-37.0); Mean Corpuscular Hemoglobin 30.8 pg (25.0-35.0); Mean Corpuscular Volume 88 fL (80-100); Monocytes # (Auto) 0.6 Thou/mm3 (0.0-0.8); Monocytes % (Auto) 9 % (0-12); Neutrophils % (Auto) 62 % (37-80); Nucleated Red Blood Cell % 0 /100 WBC (0); Platelet Count 149 Thou/mm3 (140-440); RDW Standard Deviation 47.4 fL (36.4-46.3); Red Blood Count 2.21 Miln/mm3 (4.00-5.20); White Blood Count 6.4 Thou/mm3 (3.6-11.0)
[2024-07-27 02:54] LABS: Hematocrit 19.5 % (36.0-46.0); Hemoglobin 6.8 g/dL (12.0-16.0)
[2024-07-27 03:07] LABS: Glucose Estimated Average 126 mg/dL (80-131)
[2024-07-27 03:28] LABS: Alanine Aminotransferase 13 U/L (10-49); Albumin, Serum 2.8 gm/dL (3.4-4.8); Albumin/Globulin Ratio 1.6 (1.2-2.2); Alkaline Phosphatase 47 U/L (46-116); Anion Gap 6 (7-16); Aspartate Amino Transferase 15 U/L (0-34); BUN/Creatinine Ratio 48 Ratio (12-20); Bilirubin,Total 0.4 mg/dL (0.3-1.2); Blood Urea Nitrogen 19 mg/dL (9-23); Calcium 7.8 mg/dL (8.3-10.6); Calcium (Corrected) 8.8 mg/dL (8.5-10.1); Carbon Dioxide 20.7 mMol/L (20.0-31.0); Cardiac Risk Estimate 3.5 RATIO (3.7-5.6); Chloride 114 mMol/L (98-107); Cholesterol 80 mg/dL (132-200); Creatinine (Component) 0.4 mg/dL (0.6-1.3); Estimated Creatinine Clearance 109.5 mL/min (>60); Globulin 1.7 gm/dL (2.3-3.5); Glucose 100 mg/dL (74-106); HDL Cholesterol 23 mg/dL (40-60); LDL Cholesterol,Calculated 36 mg/dL (0-130); Magnesium 1.8 mg/dL (1.6-2.6); Osmolality,Calculated 283 (275-295); Phosphorous 2.3 mg/dL (2.4-5.1); Potassium 3.7 mMol/L (3.4-5.1); Sodium 141 mMol/L (136-145); Thyroid Stimulating Hormone 1.95 uIU/mL (0.55-4.78); Total Protein 4.5 gm/dL (5.7-8.2); Triglycerides 104 mg/dL (30-150); eGFR > 60 See Note
[2024-07-27] MEDS: LEVOTHYROXINE SODIUM 25 MCG TABLET 75 MCG PO (05:16)
[2024-07-27 08:26] LABS: Hematocrit 24.4 % (36.0-46.0)
[2024-07-27] MEDS: PANTOPRAZOLE INJ 40 MG VIAL IV (08:28)
[2024-07-27 08:42] LABS: Hemoglobin 8.5 g/dL (12.0-16.0)
--- NOTE | 2024-07-27 09:02 | PD.RESPRO ---
Documentation for date of: 07/27/24 Subjective Subjective Interval history: Yusra Rubin is a 74 year old woman with history of hypothyroidism, arhtritis, HTN, TIA on plavix was on ASA who presented with symptoms of weakness/fatigue and developed dark stools found to have anemia with Hgb of 5.6 so was given blood transfusion and admitted for work up of upper GI bleed. GI has consulted and is planning for EGD. 07/27/2024: Overnight patients hemoglobin dropped to 4.5 so was given another blood transfusion and hemoglobin has gone back up to 8.6. Patient has not had bowel movement since yesterday. This morning patient said that she no longer has chest discomfort. Had some suprapubic discomfort and trouble urinating during the night but she says this has resolved. Ins: 1050 Outs: 600 Balance 450 Telemetry: Sinus with rates in 80-90. Occasional PAC's Exam Vital Signs Temp Pulse Resp BP Pulse Ox O2 Del Method FiO2 97.0 F 75 16 119/72 99 Room Air 100 07/27/24 08:00 07/27/24 08:00 07/27/24 08:00 07/27/24 08:00 07/27/24 08:00 07/27/24 08:00 07/27/24 04:00 Narrative Exam HEENT: Normocephalic, atraumatic.? NECK: Supple, nontender, no thyromegaly, no meningismus, no JVD, no step offs CHEST: Symmetrical, atraumatic, and with equal expansion , Nontender on palpation no deformity and no crepitus. CARDIOVASCULAR: Heart regular rhythm no murmur or gallop rub or extra beats. LUNGS: Clear to auscultation bilaterally with symmetrical chest rise.? No laboring tachypnea or wheezing.? No intercostal subcostal retraction.? No rales and no rhonchi. ABDOMEN: Tenderness to palpation of suprapubic region EXTREMITIES: Nontender.? No edema.? No cyanosis.? -- Patient was seen and discussed with attending physician, Dr. Fan and resident physician, , PGY1 and Dr. Holcomb, PGY 2 [employer] Medical student Objective Labs 07/27/24 08:10 07/27/24 02:30 Labs: Laboratory Results - last 24 hr 07/26/24 07/26/2424 11:17 13:54 17:04 WBC 10.7 RBC 1.77 L* Hgb 5.6 L* Hct 16.5 L* MCV 93 MCH 31.6 MCHC 33.9 RDW Std Deviation 46.7 H Plt Count 202 Neut % (Auto) 69 Lymph % (Auto) 24 [place] % (Auto) 5 Eos % (Auto) 0 Baso % (Auto) 0 Neut # (Auto) 7.4 Lymph # (Auto) 2.6 [place] # (Auto) 0.6 Eos # (Auto) 0.0 Baso # (Auto) 0.0 Immature Gran # (Auto) 0.08 H Absolute Nucleated RBC 0.00 Immature Gran % 1 H Nucleated RBC % 0 Smear Path Review Sent to Pathologist PT 11.5 INR 1.1 APTT 20.7 L Sodium 138 Potassium 3.9 Chloride 110 H Carbon Dioxide 19.1 L Anion Gap 9 BUN 48 H Creatinine 0.5 L Estim Creat Clear Calc 87.6 eGFR > 60 BUN/Creatinine Ratio 96 H Glucose [address] Glu mg/dL Hemoglobin A1c Calculated Osmolality 290 Lactic Acid 1.2 Calcium 8.8 Corrected Calcium 9.4 Phosphorus Magnesium 1.7 Total Bilirubin 0.3 AST 17 ALT 15 Alkaline Phosphatase 52 Troponin I 0.020 0.020 B-Natriuretic Peptide 48 Total Protein 5.2 L Albumin 3.3 L Globulin 1.9 L Albumin/Globulin Ratio 1.7 Triglycerides Cholesterol LDL Cholesterol, Calc HDL Cholesterol Cholesterol/HDL Ratio TSH Ur Collection Type Clean Catch Urine Color Colorless A Urine Clarity Clear Urine pH 5.5 Ur Specific [place] 1.017 Urine Protein Negative Urine Glucose (UA) Negative Urine Ketones Trace Urine Blood 1+ A Urine Nitrite Negative Urine Bilirubin Negative Urine Urobilinogen (Auto) Negative Ur Leukocyte Esterase Negative Urine RBC 2 Urine WBC < 1 Ur Squamous Epith Cells 1 Urine Bacteria None Blood Type O Positive Antibody Screen NEGATIVE Crossmatch See Detail Blood Bank Wristband ID Yes 07/26/24 07/27/24 07/27/24 17:46 02:30 08:10 WBC 6.4 D RBC 2.21 L Hgb 4.5 L* 6.8 L* D 8.5 L D Hct 13.3 L* 19.5 L* 24.4 L MCV 88 MCH 30.8 MCHC 34.9 RDW Std Deviation 47.4 H Plt Count 149 D Neut % (Auto) 62 Lymph % (Auto) 27 [place] % (Auto) 9 Eos % (Auto) 1 Baso % (Auto) 0 Neut # (Auto) 4.0 Lymph # (Auto) 1.7 [place] # (Auto) 0.6 Eos # (Auto) 0.1 Baso # (Auto) 0.0 Immature Gran # (Auto) 0.02 H Absolute Nucleated RBC 0.00 Immature Gran % 0 Nucleated RBC % 0 Smear Path Review PT INR APTT Sodium 141 Potassium 3.7 Chloride 114 H Carbon Dioxide 20.7 Anion Gap 6 L BUN 19 Creatinine 0.4 L Estim Creat Clear Calc 109.5 eGFR > 60 BUN/Creatinine Ratio 48 H Glucose [address] Glu mg/dL 126 Hemoglobin A1c 6.0 Calculated Osmolality 283 Lactic Acid Calcium 7.8 L Corrected Calcium 8.8 Phosphorus 2.3 L Magnesium 1.8 Total Bilirubin 0.4 AST 15 ALT 13 Alkaline Phosphatase 47 Troponin I B-Natriuretic Peptide Total Protein 4.5 L Albumin 2.8 L D Globulin 1.7 L Albumin/Globulin Ratio 1.6 Triglycerides 104 Cholesterol 80 L LDL Cholesterol, Calc 36 HDL Cholesterol 23 L Cholesterol/HDL Ratio 3.5 L TSH 1.95 Ur Collection Type Urine Color Urine Clarity Urine pH Ur Specific [place] Urine Protein Urine Glucose (UA) Urine Ketones Urine Blood Urine Nitrite Urine Bilirubin Urine Urobilinogen (Auto) Ur Leukocyte Esterase Urine RBC Urine WBC Ur Squamous Epith Cells Urine Bacteria Blood Type Antibody Screen Crossmatch Blood Bank Wristband ID Quality Measures Quality Measures none Assessment & Plan Assessment Current Active Medications: Generic Name Dose Route Start Last Admin Trade Name Freq PRN Reason Stop Dose Admin Acetaminophen 650 mg 07/26/24 13:47 07/26/24 18:17 Acetaminophen 325 Mg Tablet PO 08/25/24 13:46 650 mg Q6H PRN Administration Fever >100.4 or pain Hydrocodone Bitart/Acetaminophen 1 tab 07/26/24 13:47 Hydrocodone/Apap 5/325 Tablet PO 07/31/24 13:46 Q4HR PRN PAIN SCALE 4-6 (Moderate Magnesium Sulfate 2 gm in 50 mls @ 25 mls/hr 07/27/24 09:15 Magnesium Sulfate Ivpb IV 07/27/24 11:14 X1 ONE Potassium Chloride 10 meq in 100 mls @ 100 mls/hr 07/27/24 09:15 Kcl Ivpb IV 07/27/24 11:14 Q1H SATHYA Levothyroxine Sodium 75 mcg 07/27/24 06:00 07/27/24 05:16 Levothyroxine Sodium 25 Mcg Tablet PO 08/26/24 05:59 75 mcg ACBR SATHYA Administration Morphine Sulfate 1 mg 07/26/24 13:47 Morphine Sulf Inj 10 Mg/Ml Vial IVP 07/31/24 13:46 Q4HR PRN PAIN SCALE 7-10 (Severe Ondansetron HCl 4 mg 07/26/24 13:47 Ondansetron Inj 2 Mg/Ml Inj 2 Ml IV 08/25/24 13:46 Q6H PRN NAUSEA OR VOMITING Protocol Pantoprazole Sodium 40 mg 07/26/24 21:00 07/27/24 08:28 Pantoprazole Inj 40 Mg Vial IV 08/25/24 20:59 40 mg BID SATHYA Administration
--- NOTE | 2024-07-27 09:05 | PC.NURSE ---
Pt complained of urinary urgency and feeling full . Bladder scan performed. 436-466 mL scanned. Doctor Maria Isabel aware. Pt's updated Hgb and Hct after 3rd unit of PRBCs. Holding 4th unit of PRBC's per Dr. Nicolas
--- NOTE | 2024-07-27 09:40 | CHAP ---
Prayed with patient for upcoming procedure.
[2024-07-27] MEDS: POTASSIUM CHL 10 mEq IVPB 10 MEQ/100 ML BAG 100 MEQ IV ×2 (10:32→11:50)
[2024-07-27] MEDS: Magnesium Sulfate 2 GM Ivpb 2 GM/50 ML BAG IV (10:32)
--- NOTE | 2024-07-27 10:53 | ESPR_ITS ---
<Statement entered by Adrien Holcomb MD - 07/27/24 15:35> Patient was seen and examined at the bedside. Patient received 3 units PRBC yesterday post H&H hemoglobin improved around 8. Patient reports that she feels markedly improved and had no bowel movement today. Patient's daughter was present at the bedside and she reported that they have been waiting on EGD to be done today. Will follow-up on the EGD results and follow GI recommendations. Currently continuing Protonix 40 mg IV twice daily. Electrolytes were managed. All labs and orders were reviewed. # Problem list: # Acute blood loss anemia # GI bleed likely upper # Palpitations/sinus tachycardia ? Hemoglobin on admission was 5.6. ? Received 2 units PRBC post H&H around 8 Plan: ? Currently awaiting EGD per GI specialist ? Follow CBC ? Continue Protonix 40 mg IV twice daily # Bilateral lower extremity swelling # Possible peripheral arterial disease ? Venous Doppler was negative # History of essential hypertension ? Holding blood pressure medication due to soft blood pressure # Hypothyroidism ? Continuing levothyroxine 75 mcg daily # Vertigo ? Holding home meclizine due to dizziness I saw and examined the patient, and I agree with current management stated by Dr Maria Isabel MD,PGY1. Plan of care was discussed with the attending physician and resident physician. Disclaimer: Despite multiple revisions, due to the dictation software being used, the document bellow may not be free of grammatical errors including phonetic/typographic errors. However, this does not deter from our commitment to providing health care in the patient's best interest in mind. Dr. Zhang MD, PGY 2 Documentation for date of: 07/27/24 Subjective Subjective Interval history: Yusra Rubin is a 74 year old woman with history of hypothyroidism, arhtritis, HTN, TIA on plavix was on ASA who presented with symptoms of weakness/fatigue and developed dark stools found to have anemia with Hgb of 5.6 so was given blood transfusion and admitted for work up of upper GI bleed. GI has consulted and is planning for EGD today. 07/27/2024: Patient is Italian-speaking and interaction facilitated by registered healthcare currency counter. Seen at bedside with daughter present Overnight patients hemoglobin dropped to 4.5 so was given another blood transfusion and hemoglobin uptrended to 8.6. 3 Units PRBC in total transfused Patient has not had bowel movement since yesterday. This morning patient said that she no longer has chest discomfort. Had some suprapubic discomfort and trouble urinating during the night but she says this has resolved. Continues to have bilateral lower extremity edema. Pts daughter reports that she had some sort of arterial procedure done in the past but does not recall name of the procedure. Telemetry: Sinus with rates in 80-90. Occasional PAC's Patient n.p.o. from 11 AM and scheduled for EGD later today. Exam Vital Signs Temp Pulse Resp BP Pulse Ox O2 Del Method FiO2 97.0 F 75 16 119/72 99 Room Air 100 07/27/24 08:00 07/27/24 08:00 07/27/24 08:00 07/27/24 08:00 07/27/24 08:00 07/27/24 08:00 07/27/24 04:00 Narrative Exam Constitutional: A&O x 3, comfortable. Elderly female HEENT: Normocephalic, atraumatic.? NECK: Supple, nontender, no thyromegaly, no meningismus, no JVD, no step offs CHEST: Symmetrical, atraumatic, and with equal expansion , Nontender on palpation no deformity and no crepitus. CARDIOVASCULAR: Heart regular rhythm no murmur or gallop rub or extra beats. LUNGS: Clear to auscultation bilaterally with symmetrical chest rise.? No laboring tachypnea or wheezing.? No intercostal subcostal retraction.? No rales and no rhonchi. ABDOMEN: Tenderness to palpation of suprapubic region EXTREMITIES: Nontender.?2+ pitting LE edema up to knees b/l.? No cyanosis.? -- Patient was seen and discussed with attending physician, Dr. Fan and resident physician, , PGY1 and Dr. Holcomb, PGY 2 [employer] Medical student I have seen and examined the patient with medical student Tomas Guevara , agree with his findings and have edited it with my assessment as well. Les Nicolas MD PGY1 Objective Labs 07/28/24 04:35 07/28/24 04:35 Labs: Laboratory Results - last 24 hr 07/26/24 07/26/24 07/26/24 11:17 13:54 17:04 WBC 10.7 RBC 1.77 L* Hgb 5.6 L* Hct 16.5 L* MCV 93 MCH 31.6 MCHC 33.9 RDW Std Deviation 46.7 H Plt Count 202 Neut % (Auto) 69 Lymph % (Auto) 24 [place] % (Auto) 5 Eos % (Auto) 0 Baso % (Auto) 0 Neut # (Auto) 7.4 Lymph # (Auto) 2.6 [place] # (Auto) 0.6 Eos # (Auto) 0.0 Baso # (Auto) 0.0 Immature Gran # (Auto) 0.08 H Absolute Nucleated RBC 0.00 Immature Gran % 1 H Nucleated RBC % 0 Smear Path Review Sent to Pathologist PT 11.5 INR 1.1 APTT 20.7 L Sodium 138 Potassium 3.9 Chloride 110 H Carbon Dioxide 19.1 L Anion Gap 9 BUN 48 H Creatinine 0.5 L Estim Creat Clear Calc 87.6 eGFR > 60 BUN/Creatinine Ratio 96 H Glucose [address] Glu mg/dL Hemoglobin A1c Calculated Osmolality 290 Lactic Acid 1.2 Calcium 8.8 Corrected Calcium 9.4 Phosphorus Magnesium 1.7 Total Bilirubin 0.3 AST 17 ALT 15 Alkaline Phosphatase 52 Troponin I 0.020 0.020 B-Natriuretic Peptide 48 Total Protein 5.2 L Albumin 3.3 L Globulin 1.9 L Albumin/Globulin Ratio 1.7 Triglycerides Cholesterol LDL Cholesterol, Calc HDL Cholesterol Cholesterol/HDL Ratio TSH Ur Collection Type Clean Catch Urine Color Colorless A Urine Clarity Clear Urine pH 5.5 Ur Specific [place] 1.017 Urine Protein Negative Urine Glucose (UA) Negative Urine Ketones Trace Urine Blood 1+ A Urine Nitrite Negative Urine Bilirubin Negative Urine Urobilinogen (Auto) Negative Ur Leukocyte Esterase Negative Urine RBC 2 Urine WBC < 1 Ur Squamous Epith Cells 1 Urine Bacteria None Blood Type O Positive Antibody Screen NEGATIVE Crossmatch See Detail Blood Bank Wristband ID Yes 07/26/24 07/27/2407/27/24 17:46 02:30 08:10 WBC 6.4 D RBC 2.21 L Hgb 4.5 L* 6.8 L* D 8.5 L D Hct 13.3 L* 19.5 L* 24.4 L MCV 88 MCH 30.8 MCHC 34.9 RDW Std Deviation 47.4 H Plt Count 149 D Neut % (Auto) 62 Lymph % (Auto) 27 [place] % (Auto) 9 Eos % (Auto) 1 Baso % (Auto) 0 Neut # (Auto) 4.0 Lymph # (Auto) 1.7 [place] # (Auto) 0.6 Eos # (Auto) 0.1 Baso # (Auto) 0.0 Immature Gran # (Auto) 0.02 H Absolute Nucleated RBC 0.00 Immature Gran % 0 Nucleated RBC % 0 Smear Path Review PT INR APTT Sodium 141 Potassium 3.7 Chloride 114 H Carbon Dioxide 20.7 Anion Gap 6 L BUN 19 Creatinine 0.4 L Estim Creat Clear Calc 109.5 eGFR > 60 BUN/Creatinine Ratio 48 H Glucose [address] Glu mg/dL 126 Hemoglobin A1c 6.0 Calculated Osmolality 283 Lactic Acid Calcium 7.8 L Corrected Calcium 8.8 Phosphorus 2.3 L Magnesium 1.8 Total Bilirubin 0.4 AST 15 ALT 13 Alkaline Phosphatase 47 Troponin I B-Natriuretic Peptide Total Protein 4.5 L Albumin 2.8 L D Globulin 1.7 L Albumin/Globulin Ratio 1.6 Triglycerides 104 Cholesterol 80 L LDL Cholesterol, Calc 36 HDL Cholesterol 23 L Cholesterol/HDL Ratio 3.5 L TSH 1.95 Ur Collection Type Urine Color Urine Clarity Urine pH Ur Specific [place] Urine Protein Urine Glucose (UA) Urine Ketones Urine Blood Urine Nitrite Urine Bilirubin Urine Urobilinogen (Auto) Ur Leukocyte Esterase Urine RBC Urine WBC Ur Squamous Epith Cells Urine Bacteria Blood Type Antibody Screen Crossmatch Blood Bank Wristband ID Quality Measures Quality Measures none Advance care planning discussed with:: other Assessment & Plan Assessment Current Active Medications: Generic Name Dose Route Start Last Admin Trade Name Freq PRN Reason Stop Dose Admin Acetaminophen 650 mg 07/27/24 09:34 Acetaminophen 325 Mg Tablet PO 08/25/24 13:46 Q6H PRN Fever>100.4 or Mild Pain (1-3) Hydrocodone Bitart/Acetaminophen 1 tab 07/26/24 13:47 Hydrocodone/Apap 5/325 Tablet PO 07/31/24 13:46 Q4HR PRN PAIN SCALE 4-6 (Moderate Magnesium Sulfate 2 gm in 50 mls @ 25 mls/hr 07/27/24 09:15 07/27/24 10:32 Magnesium Sulfate Ivpb IV 07/27/24 11:14 25 mls/hr X1 ONE Administration Potassium Chloride 10 meq in 100 mls @ 100 mls/hr 07/27/24 09:15 07/27/24 10:32 Kcl Ivpb IV 07/27/24 11:14 100 mls/hr Q1H SATHYA Administration Levothyroxine Sodium 75 mcg 07/27/24 06:00 07/27/24 05:16 Levothyroxine Sodium 25 Mcg Tablet PO 08/26/24 05:59 75 mcg ACBR SATHYA Administration Morphine Sulfate 1 mg 07/26/24 13:47 Morphine Sulf Inj 10 Mg/Ml Vial IVP 07/31/24 13:46 Q4HR PRN PAIN SCALE 7-10 (Severe Ondansetron HCl 4 mg 07/26/24 13:47 Ondansetron Inj 2 Mg/Ml Inj 2 Ml IV 08/25/24 13:46 Q6H PRN NAUSEA OR VOMITING Protocol Pantoprazole Sodium 40 mg 07/26/24 21:00 07/27/24 08:28 Pantoprazole Inj 40 Mg Vial IV 08/25/24 20:59 40 mg BID SATHYA Administration Plan Patient is a 74-year-old female with a past medical history of essential hypertension, hypothyroidism, vertigo, rheumatoid arthritis,? PAD,? Chronic venous insufficiency. She presented with palpitations, weakness and coffee- ground emesis. Admitted for acute blood loss anemia secondary to GI bleed for investigation. 1. Symptomatic acute blood loss anemia Secondary to 2. GI bleed for investigation 3. Palpitations - resolved 4. Weakness Patient presented with history of coffee-ground emesis, melena with associated palpitations and weakness. On exam she had pale mucous membranes and was cold to touch. Patient received 2L normal saline IVF bolus in the ED and received Protonix 40 Mg IV x 1 Ddx: Peptic ulcer disease, perforated viscus, diverticular bleed Hb on admission 5.6 down trended to 4.5 Post 3 units PRBC Hb & Hct 8.5 , 24.4 Plan: ? Clear liquid diet ? Continue Pantoprazole 40 Mg IV twice daily ? N.p.o. from 11 am ? For EGD today ? GI, Dr. Stevenson consulted and is closely following the case. Appreciate recommendations 5. B/L lower extremity swelling 6.? PAD 7.? Chronic venous insufficiency On exam patient has B/L lower extremity swelling and a history of possible B/L lower extremity angioplasty versus varicose vein stripping. Patient unsure of procedure as well as daughters present at bedside. Patient was on dual antiplatelet therapy with aspirin and Plavix prior to admission for the above. Plan: ? B/L lower extremity IRVING duplex US ordered 8. Essential hypertension Will hold antihypertensives for now as patient has symptomatic anemia and is normotensive 9. Hypothyroidism Patient's home medication levothyroxine 75 mcg p.o. daily Plan: ? TSH ordered ? Resumed home medication levothyroxine 75 mcg p.o. daily 10. Vertigo Possible history of BPPV patient was on meclizine at home and endorses frequent episodes of dizziness Home medication meclizine 25 Mg p.o. 3 times daily as needed. Will hold for now 11. History of TIA Patient's was on aspirin as home medication for stroke prophylaxis. Had a TIA on 07/15/2024 Health maintenance: Disposition: Pending EGD. GI recs. Diet: NPO Lines: pIVs GI Prophylaxis: Pantoprazole Thrombo Prophylaxis: SCDs Code status: FULL CODE Plan of care discussed with Attending Dr. Fan and PGY2 Dr. Zhang Nicolas MD PGY 1 Attending Provider Attestation/Addendum Clare, Rosio Fan, DO, attest that I was physically present for the rachel portions of the service and evaluated the patient with the resident and I reviewed and discussed the case with the resident and agree with the resident's findings and plans of care as documented above Patient seen and evaluated this a.m. She states that she is feeling somewhat improved today. She denies any shortness of breath after receiving 3 units of PRBCs. She is scheduled for endoscopy this afternoon. Confirmed with daughter that the patient had possible angioplasty of her arteries as well as removal of varicose veins. Will hold off on any antiplatelets or anticoagulants at this time due to acute GI bleed. Will follow-up with EGD results
[2024-07-27 13:49] LABS: Hematocrit 24.3 % (36.0-46.0)
[2024-07-27 13:59] LABS: Hemoglobin 8.5 g/dL (12.0-16.0)
--- NOTE | 2024-07-27 16:09 | PC.SS ---
Rounding note: pending EGD.
[2024-07-27 18:46] LABS: Collection Type, Urine Clean Catch
[2024-07-27 18:54] LABS: Bilirubin,Urine Negative (Negative); Blood,Urine Negative (Negative); Clarity,Urine Clear (Clear/Hazy); Color,Urine Lt-Yellow (Lt Yel-Yel); Glucose, Urine Negative (Negative); Ketones,Urine Negative (Negative); Leukocyte Esterase,Urine Negative (Negative); Nitrite,Urine Negative (Negative); Protein,Urine Negative (Neg - Trace); RBC,Urine 1 /hpf (0-3); Specific Gravity,Urine 1.011 (1.001-1.035); Squamous Epithelial Cell,Urine 1 /hpf (0-5); Urobilinogen,Urine Negative mg/dL (0.0-1.0); WBC,Urine 2 /hpf (0-5)
[2024-07-27] MEDS: MG HYD/AL HYD/SIME (Maalox Reg) SUSP 30 ML UDC 15 ML PO (21:31)
[2024-07-27] MEDS: SUCRALFATE SUSP 1 GM/10 ML UDC PO (21:32)
[2024-07-27] MEDS: PANTOPRAZOLE INJ 40 MG VIAL 80 MG IV (21:34)
[2024-07-28] VITALS (11 sets, daily range): BP systolic 110–140; BP diastolic 60–88; PULSE 67–92; RESP 16–98; TEMP 36.2–37.3; O2SAT 96–97
[2024-07-28] MEDS: MG HYD/AL HYD/SIME (Maalox Reg) SUSP 30 ML UDC 15 ML PO ×6 (02:12→21:34)
[2024-07-28] MEDS: LEVOTHYROXINE SODIUM 25 MCG TABLET 75 MCG PO (05:21)
[2024-07-28] MEDS: SUCRALFATE SUSP 1 GM/10 ML UDC PO ×4 (05:22→21:34)
[2024-07-28 05:26] LABS: Basophils % (Auto) 0 % (0-2.5); Eosinophils # (Auto) 0.2 Thou/mm3 (0.0-0.5); Eosinophils % (Auto) 3 % (0-10); Hematocrit 22.1 % (36.0-46.0); Immature Granulocytes % (Auto) 0 % (0-0); Immature Granulocytes Auto 0.02 Thou/mm3 (0.00-0.00); Lymphocytes # (Auto) 1.3 Thou/mm3 (1.0-4.8); Lymphocytes % (Auto) 23 % (10-50); Mean Corpuscular HGB Conc 34.4 g/dl (31.0-37.0); Mean Corpuscular Hemoglobin 30.4 pg (25.0-35.0); Mean Corpuscular Volume 88 fL (80-100); Monocytes # (Auto) 0.5 Thou/mm3 (0.0-0.8); Monocytes % (Auto) 9 % (0-12); Neutrophils # (Auto) 3.8 Thou/mm3 (1.8-7.7); Neutrophils % (Auto) 65 % (37-80); Nucleated Red Blood Cell % 0 /100 WBC (0); Platelet Count 148 Thou/mm3 (140-440); RDW Standard Deviation 49.1 fL (36.4-46.3); White Blood Count 5.9 Thou/mm3 (3.6-11.0)
[2024-07-28 05:34] LABS: Hemoglobin 7.6 g/dL (12.0-16.0)
[2024-07-28 07:20] LABS: Alanine Aminotransferase 12 U/L (10-49); Albumin, Serum 2.6 gm/dL (3.4-4.8); Albumin/Globulin Ratio 1.4 (1.2-2.2); Alkaline Phosphatase 52 U/L (46-116); Anion Gap 8 (7-16); BUN/Creatinine Ratio 18 Ratio (12-20); Bilirubin,Total 0.4 mg/dL (0.3-1.2); Blood Urea Nitrogen 7 mg/dL (9-23); Calcium 8.4 mg/dL (8.3-10.6); Calcium (Corrected) 9.5 mg/dL (8.5-10.1); Carbon Dioxide 22.3 mMol/L (20.0-31.0); Chloride 112 mMol/L (98-107); Creatinine (Component) 0.4 mg/dL (0.6-1.3); Estimated Creatinine Clearance 109.5 mL/min (>60); Globulin 1.9 gm/dL (2.3-3.5); Glucose 95 mg/dL (74-106); Magnesium 1.8 mg/dL (1.6-2.6); Osmolality,Calculated 281 (275-295); Phosphorous 2.8 mg/dL (2.4-5.1); Potassium 3.4 mMol/L (3.4-5.1); Sodium 142 mMol/L (136-145); Total Protein 4.5 gm/dL (5.7-8.2); eGFR > 60 See Note
[2024-07-28] MEDS: ACETAMINOPHEN 325 MG TABLET 650 MG PO (07:44)
[2024-07-28 08:04] LABS: Aspartate Amino Transferase 20 U/L (0-34)
--- NOTE | 2024-07-28 09:15 | ESPR_ITS ---
<Statement entered by Adrien Holcomb MD - 07/28/24 14:30> Patient was seen and examined at the bedside. Patient reported that she has been feeling better since yesterday after hemoglobin improvement with PRBC transfusion. EGD showed esophagitis, nonbleeding gastric ulcer with a clean ulcer base. Ulcer is about 2.5 cm deep excavated no visible blood vessel. Biopsies were taken from antrum and cardia to rule out H. pylori. GI specialist recommended to continue Protonix 80 mg IV every 12 hourly, Maalox every 4 hourly and avoid NSAIDs and follow on antireflux regimen indefinitely. Will likely touch base with GI specialist if she can resume her Plavix before discharge possibly tomorrow. Will keep her for 1 more day to continue Protonix IV and monitor hemoglobin. Home blood pressure medications were resumed. Family was updated regarding plan. All labs and orders were reviewed. I saw and examined the patient, and I agree with current management stated by Dr Maria Isabel MD,PGY1. Plan of care was discussed with the attending physician and resident physician. Disclaimer: Despite multiple revisions, due to the dictation software being used, the document bellow may not be free of grammatical errors including phonetic/typographic errors. However, this does not deter from our commitment to providing health care in the patient's best interest in mind. Dr. Zhang MD, PGY 2 Documentation for date of: 07/28/24 Subjective Subjective Interval history: Yusra Rubin is a 74 year old woman with history of hypothyroidism, arhtritis, HTN, TIA on plavix was on ASA who presented with symptoms of weakness/fatigue and developed dark stools found to have anemia with Hgb of 5.6 so was given blood transfusion and admitted for work up of upper GI bleed. EGD was done showing non-bleeding gastric ulcer about 2.5cm deep(Scot classification of III) and pathology is pending. 07/28/2024 Patient is Azeri-speaking and interaction facilitated by registered healthcare stripper machine operator Patient seen and examined at bedside this a.m. No acute overnight events. Most recent hemoglobin was 7.6, down trended from 8.4 yesterday. Patient reports that she is feeling a little better. Last BM was in the morning and she said it looked less dark than when she initially presented to hospital. Denies any new chest pain, dyspnea, abdominal pain, and N/V. EGD completed on 07/27/2024 findings include: Esophagitis lower third of esophagus, 1 nonbleeding cratered gastric ulcer with a clean ulcer base [Scot class III] found in the lesser curvature gastric body. The lesion was 25 mm in largest diameter. Biopsies were taken with a cold forceps for histology. The second portion of the duodenum was normal. Exam Vital Signs Temp Pulse Resp BP Pulse Ox O2 Del Method O2 Flow Rate 97.3 F 74 20 140/84 H 97 Room Air 3 07/28/24 07:40 07/28/24 07:40 07/28/24 07:40 07/28/24 07:40 07/28/24 07:40 07/28/24 07:40 07/27/24 19:20 FiO2 100 07/27/24 04:00 Narrative Exam Constitutional: Alert to person, place and time. Resting comfortably in bed with her daughter, Diego, at bedside. CHEST: Symmetrical, atraumatic, and with equal expansion , Nontender on palpation no deformity and no crepitus. CARDIOVASCULAR: Heart regular rhythm no murmur or gallop rub or extra beats. LUNGS: Clear to auscultation bilaterally with symmetrical chest rise.? No laboring tachypnea or wheezing.? No intercostal subcostal retraction.? No rales and no rhonchi. ABDOMEN: Soft, flat, nontender to palpation, no guarding or rebound tenderness.? There are no abnormal masses palpated.? Active and normal bowel sounds. EXTREMITIES: 2+ pitting edema bilaterally in lower extremities up to knees -- Patient was seen and discussed with attending physician, Dr. Fan and resident physician, , PGY1 and Dr. Holcomb, PGY 2 [employer] Medical student I have seen and examined the patient with medical student Tomas Guevara , agree with his findings and have edited it with my assessment as well. Les Nicolas MD PGY1 Objective Labs 07/28/24 04:35 07/28/24 04:35 Labs: Laboratory Results - last 24 hr 07/27/24 07/27/24 07/28/24 13:37 18:20 04:35 WBC 5.9 RBC 2.50 L Hgb 8.5 L 7.6 L Hct 24.3 L 22.1 L MCV 88 MCH 30.4 MCHC 34.4 RDW Std Deviation 49.1 H Plt Count 148 Neut % (Auto) 65 Lymph % (Auto) 23 [place] % (Auto) 9 Eos % (Auto) 3 Baso % (Auto) 0 Neut # (Auto) 3.8 Lymph # (Auto) 1.3 [place] # (Auto) 0.5 Eos # (Auto) 0.2 Baso # (Auto) 0.0 Immature Gran # (Auto) 0.02 H Absolute Nucleated RBC 0.00 Immature Gran % 0 Nucleated RBC % 0 Sodium 142 Potassium 3.4 Chloride 112 H Carbon Dioxide 22.3 Anion Gap 8 BUN 7 L Creatinine 0.4 L Estim Creat Clear Calc 109.5 eGFR > 60 BUN/Creatinine Ratio 18 Glucose 95 Calculated Osmolality 281 Calcium 8.4 Corrected Calcium 9.5 Phosphorus 2.8 Magnesium 1.8 Total Bilirubin 0.4 ALT 12 Alkaline Phosphatase 52 AST 20 Total Protein 4.5 L Albumin 2.6 L Globulin 1.9 L Albumin/Globulin Ratio 1.4 Ur Collection Type Clean Catch Urine Color Lt-Yellow Urine Clarity Clear Urine pH 6.0 Ur Specific [place] 1.011 Urine Protein Negative Urine Glucose (UA) Negative Urine Ketones Negative Urine Blood Negative Urine Nitrite Negative Urine Bilirubin Negative Urine Urobilinogen (Auto) Negative Ur Leukocyte Esterase Negative Urine RBC 1 Urine WBC 2 Ur Squamous Epith Cells 1 Urine Bacteria None Quality Measures Quality Measures none Advance care planning discussed with:: other Assessment & Plan Assessment Current Active Medications: Generic Name Dose Route Start Last Admin Trade Name Freq PRN Reason Stop Dose Admin Acetaminophen 650 mg 07/27/24 09:34 07/28/24 07:44 Acetaminophen 325 Mg Tablet PO 08/25/24 13:46 650 mg Q6H PRN Administration Fever>100.4 or Mild Pain (1-3) Hydrocodone Bitart/Acetaminophen 1 tab 07/26/24 13:47 Hydrocodone/Apap 5/325 Tablet PO 07/31/24 13:46 Q4HR PRN PAIN SCALE 4-6 (Moderate Al Hydrox/Mg Hydrox/Simethicone 15 ml 07/27/24 22:00 07/28/24 05:21 Mg Hyd/Al Hyd/Harsh (Maalox Reg) Susp 30 Ml Udc PO 08/26/24 21:59 15 ml Q4HR SATHYA Administration Levothyroxine Sodium 75 mcg 07/27/24 06:00 07/28/24 05:21 Levothyroxine Sodium 25 Mcg Tablet PO 08/26/24 05:59 75 mcg ACBR SATHYA Administration Morphine Sulfate 1 mg 07/26/24 13:47 Morphine Sulf Inj 10 Mg/Ml Vial IVP 07/31/24 13:46 Q4HR PRN PAIN SCALE 7-10 (Severe Ondansetron HCl 4 mg 07/26/24 13:47 Ondansetron Inj 2 Mg/Ml Inj 2 Ml IV 08/25/24 13:46 Q6H PRN NAUSEA OR VOMITING Protocol Pantoprazole Sodium 80 mg 07/27/24 21:00 07/27/24 21:34 Pantoprazole Inj 40 Mg Vial IV 08/26/24 20:59 80 mg BID SATHYA Administration Sucralfate 1 gm 07/27/24 21:00 07/28/24 05:22 Sucralfate Susp 1 Gm/10 Ml Udc PO 08/26/24 20:59 1 gm QID SATHYA Administration Plan Patient is a 74-year-old female with a past medical history of essential hypertension, hypothyroidism, vertigo, rheumatoid arthritis,? PAD,? Chronic venous insufficiency. She presented with palpitations, weakness and coffee- ground emesis. Admitted for acute blood loss anemia secondary to GI bleed for investigation. 1. Symptomatic acute blood loss anemia -resolving Secondary to 2. Upper GI bleed - resolved 3. Gastric Ulcer [Scot Class III] 4. Palpitations - resolved 5. Weakness - resolving Patient presented with history of coffee-ground emesis, melena with associated palpitations and weakness. On exam she had pale mucous membranes and was cold to touch. Patient received 2L normal saline IVF bolus in the ED and received Protonix 40 Mg IV x 1 Ddx: Peptic ulcer disease, perforated viscus, diverticular bleed Hb on admission 5.6 down trended to 4.5 Post 3 units PRBC Hb & Hct 8.5 , 24.4 ------> Hb 7.6 , Hct 22.1 EGD completed on 07/27/2024 findings include: Esophagitis lower third of esophagus, 1 nonbleeding cratered gastric ulcer with a clean ulcer base [Scot class III] found in the lesser curvature gastric body. The lesion was 25 mm in largest diameter. Biopsies were taken with a cold forceps for histology. The second portion of the duodenum was normal. Rockall score complete: 4 points; 14.1% rebleeding risk Plan: ? Full liquid diet GI recommendations: - Await pathology results ? Carafate suspension 1G4 times daily ? Increase Protonix to 80 Mg IV twice daily ? Maalox 15 mL p.o. Q4 hourly ? Full liquid diet ? Avoid NSAIDs ? Antireflux regimen indefinitely ? GI, Dr. Stevenson consulted and is closely following the case. Appreciate recommendations 6. B/L lower extremity swelling 7.? PAD 8.? Chronic venous insufficiency On exam patient has B/L lower extremity swelling and a history of possible B/L lower extremity angioplasty versus varicose vein stripping. Patient unsure of procedure as well as daughters present at bedside. Patient was on dual antiplatelet therapy with aspirin and Plavix prior to admission for the above. Plan: ? B/L lower extremity IRVING duplex US ordered 9. Essential hypertension Will hold antihypertensives for now as patient has symptomatic anemia and is normotensive 10. Hypothyroidism Patient's home medication levothyroxine 75 mcg p.o. daily Plan: ? TSH ordered ? Resumed home medication levothyroxine 75 mcg p.o. daily 11. Vertigo Possible history of BPPV patient was on meclizine at home and endorses frequent episodes of dizziness Home medication meclizine 25 Mg p.o. 3 times daily as needed. Will hold for now 12. History of TIA Patient's was on aspirin as home medication for stroke prophylaxis. Had a TIA on 07/15/2024 Plan: ? Pending GI recommendations prior to restarting either aspirin or Plavix. Health maintenance: Disposition: Monitoring H&H on am labs. Graduating to solid diet Diet: Full liquid Lines: pIVs GI Prophylaxis: Pantoprazole Thrombo Prophylaxis: SCDs Code status: FULL CODE Plan of care discussed with Attending Dr. Fan and PGY2 Dr. Zhang Nicolas MD PGY 1 Attending Provider Attestation/Addendum I, Rosio Fan DO, attest that I was physically present for the rachel portions of the service and evaluated the patient with the resident and I reviewed and discussed the case with the resident and agree with the resident's findings and plans of care as documented above Patient seen and eval this a.m. She underwent endoscopy overnight at tolerated procedure well. Patient was found to have a nonbleeding gastric ulcer of 2-1/2 cm, as well as gastritis. Will continue with Protonix and Maalox. Hemoglobin down trended slightly from 8.5-7.6 today. Will continue to follow H&H. Advance diet as tolerated. Patient denies any further episodes of melena otherwise. If hemoglobin continues to be stable, anticipate discharge within the next 24 hours. Patient reports some dizziness when she is laying flat, But patient has a history of dizziness/BPPV improved with meclizine. Patient also states that she feels this way when her blood pressure is not well-controlled. However, blood pressure has been within normal limits. Will restart patient's home meds as tolerated otherwise. Will discuss with GI regarding antiplatelet therapy.
[2024-07-28] MEDS: PANTOPRAZOLE INJ 40 MG VIAL 80 MG IV ×2 (09:37→21:34)
[2024-07-28] MEDS: Magnesium Sulfate 2 GM Ivpb 2 GM/50 ML BAG IV (11:41)
[2024-07-28] MEDS: POTASSIUM CHL 10 mEq IVPB 10 MEQ/100 ML BAG 100 MEQ IV ×4 (11:41→15:59)
[2024-07-28] MEDS: Lisinopril 2.5 MG TABLET 10 MG PO (12:41)
--- NOTE | 2024-07-28 18:07 | ESPR_ITS ---
Documentation for date of: 07/28/24 Subjective Subjective Interval history: Patient evaluated Slight drop in hemoglobin hematocrit to 7.6 and 22.1 Continue to monitor CBC Continue current management Upon discharge continue Plavix Hold off the aspirin for 2 weeks and then start the aspirin Exam Vital Signs Temp Pulse Resp BP Pulse Ox O2 Del Method O2 Flow Rate 97.3 F 84 18 111/80 97 Room Air 3 07/28/24 16:00 07/28/24 16:00 07/28/24 16:00 07/28/24 16:00 07/28/24 16:00 07/28/24 16:00 07/27/24 19:20 FiO2 100 07/27/24 04:00 Objective Labs 07/28/24 04:35 07/28/24 04:35 Labs: Laboratory Results - last 24 hr 07/26/24 07/27/24 07/28/24 11:17 18:20 04:35 WBC 5.9 RBC 2.50 L Hgb 7.6 L Hct 22.1 L MCV 88 MCH 30.4 MCHC 34.4 RDW Std Deviation 49.1 H Plt Count 148 Neut % (Auto) 65 Lymph % (Auto) 23 [place] % (Auto) 9 Eos % (Auto) 3 Baso % (Auto) 0 Neut # (Auto) 3.8 Lymph # (Auto) 1.3 [place] # (Auto) 0.5 Eos # (Auto) 0.2 Baso # (Auto) 0.0 Immature Gran # (Auto) 0.02 H Absolute Nucleated RBC 0.00 Immature Gran % 0 Nucleated RBC % 0 Sodium 142 Potassium 3.4 Chloride 112 H Carbon Dioxide 22.3 Anion Gap 8 BUN 7 L Creatinine 0.4 L Estim Creat Clear Calc 109.5 eGFR > 60 BUN/Creatinine Ratio 18 Glucose 95 Calculated Osmolality 281 Calcium 8.4 Corrected Calcium 9.5 Phosphorus 2.8 Magnesium 1.8 Total Bilirubin 0.4 ALT 12 Alkaline Phosphatase 52 AST 20 Total Protein 4.5 L Albumin 2.6 L Globulin 1.9 L Albumin/Globulin Ratio 1.4 Ur Collection Type Clean Catch Urine Color Lt-Yellow Urine Clarity Clear Urine pH 6.0 Ur Specific [place] 1.011 Urine Protein Negative Urine Glucose (UA) Negative Urine Ketones Negative Urine Blood Negative Urine Nitrite Negative Urine Bilirubin Negative Urine Urobilinogen (Auto) Negative Ur Leukocyte Esterase Negative Urine RBC 1 Urine WBC 2 Ur Squamous Epith Cells 1 Urine Bacteria None Blood Type O Positive Antibody Screen NEGATIVE Crossmatch See Detail Blood Bank Wristband ID Yes Impressions Impression: # Large gastric ulcer # Acute posthemorrhagic anemia Continue current management Assessment & Plan A&P Narrative # Acute posthemorrhagic anemia with clinical presentation of melena and coffee- ground hematemesis in a patient who takes Plavix Plan Agree with the blood transfusion IV Protonix Serial CBC Consent obtained for fiberoptic esophagogastroduodenoscopy with possible therapeutic intervention under intravenous moderate sedation scheduled for tomorrow Clear liquid diet till 11 AM tomorrow then n.p.o. Other medical problems include # Peripheral vascular disease requiring intervention # Rheumatoid arthritis # Essential hypertension Thank you very much for the opportunity to participate in care of this patient Time Spent With Patient Time: Total time spent is greater than 50% in coordination of care (as documented) at patient's floor/unit and/or counseling patient:
[2024-07-29] VITALS: BP 113/62; PULSE 69; PULSE 71; RESP 19; TEMP 36.9; O2SAT 96
[2024-07-29] MEDS: MG HYD/AL HYD/SIME (Maalox Reg) SUSP 30 ML UDC 15 ML PO ×3 (01:53→09:21)
[2024-07-29 04:00] VITALS: BP 135/78; PULSE 67; PULSE 69; RESP 17; TEMP 36.8; O2SAT 96
[2024-07-29 05:53] LABS: Basophils % (Auto) 0 % (0-2.5); Eosinophils # (Auto) 0.2 Thou/mm3 (0.0-0.5); Eosinophils % (Auto) 4 % (0-10); Hematocrit 22.7 % (36.0-46.0); Immature Granulocytes % (Auto) 0 % (0-0); Immature Granulocytes Auto 0.01 Thou/mm3 (0.00-0.00); Lymphocytes # (Auto) 1.2 Thou/mm3 (1.0-4.8); Lymphocytes % (Auto) 26 % (10-50); Mean Corpuscular HGB Conc 34.4 g/dl (31.0-37.0); Mean Corpuscular Hemoglobin 30.4 pg (25.0-35.0); Mean Corpuscular Volume 88 fL (80-100); Monocytes # (Auto) 0.5 Thou/mm3 (0.0-0.8); Monocytes % (Auto) 11 % (0-12); Neutrophils # (Auto) 2.7 Thou/mm3 (1.8-7.7); Neutrophils % (Auto) 59 % (37-80); Nucleated Red Blood Cell % 0 /100 WBC (0); Platelet Count 171 Thou/mm3 (140-440); RDW Standard Deviation 48.6 fL (36.4-46.3); Red Blood Count 2.57 Miln/mm3 (4.00-5.20); White Blood Count 4.6 Thou/mm3 (3.6-11.0)
[2024-07-29 05:54] LABS: Hemoglobin 7.8 g/dL (12.0-16.0)
[2024-07-29 06:13] LABS: Anion Gap 5 (7-16); BUN/Creatinine Ratio 13 Ratio (12-20); Blood Urea Nitrogen < 5 mg/dL (9-23); Calcium 8.5 mg/dL (8.3-10.6); Carbon Dioxide 27.3 mMol/L (20.0-31.0); Chloride 107 mMol/L (98-107); Creatinine (Component) 0.4 mg/dL (0.6-1.3); Estimated Creatinine Clearance 109.5 mL/min (>60); Glucose 95 mg/dL (74-106); Magnesium 1.9 mg/dL (1.6-2.6); Osmolality,Calculated 274 (275-295); Potassium 3.5 mMol/L (3.4-5.1); Sodium 139 mMol/L (136-145); eGFR > 60 See Note
[2024-07-29] MEDS: LEVOTHYROXINE SODIUM 25 MCG TABLET 75 MCG PO (06:17)
[2024-07-29] MEDS: SUCRALFATE SUSP 1 GM/10 ML UDC PO ×2 (06:17→11:37)
[2024-07-29 08:00] VITALS: BP 135/83; PULSE 75; PULSE 80; RESP 16; TEMP 37.1; O2SAT 97
[2024-07-29 08:08] VITALS: BP 135/83; PULSE 75
[2024-07-29] MEDS: Lisinopril 2.5 MG TABLET 10 MG PO (08:08)
[2024-07-29] MEDS: Magnesium Sulfate 2 GM Ivpb 2 GM/50 ML BAG IV (08:09)
[2024-07-29] MEDS: POTASSIUM CHL 10 mEq IVPB 10 MEQ/100 ML BAG 100 MEQ IV ×4 (08:09→13:06)
[2024-07-29] MEDS: CLOPIDOGREL BISULFATE 75 MG TABLET PO (08:09)
[2024-07-29] MEDS: PANTOPRAZOLE INJ 40 MG VIAL 80 MG IV (08:10)
--- NOTE | 2024-07-29 09:33 | ESDS_ITS ---
<Statement entered by Rosio Fan DO - 07/30/24 08:34> I, Rosio Fan DO, attest that I was physically present for the rachel portions of the service and evaluated the patient with the resident and I reviewed and discussed the case with the resident and agree with the resident's findings and plans of care as documented above Planned Discharge Date 07/29/24 DS: Providers Provider Date of admission: 07/26/24 13:47 Primary care physician: Ino Muro Admitting Provider: Rosio Fan DO Attending Provider on Admission: Rosio Fan DO Consults: 07/26/24 12:35 Consult to Gastroenterology Stat Comment: Consulting Provider: Medina Stevenson Attending Provider on DC: Rosio Fan DO Discharging Provider: Les Nicolas MD DS: Diagnosis Problem List Completed Was Problem List Reviewed/Reconciled?: Yes Hospital Course Hospital Course Hospital course: Patient is a 74-year-old female with a past medical history of essential hypertension, hypothyroidism, vertigo, rheumatoid arthritis,? PAD,? Chronic venous insufficiency. She presented with palpitations, weakness and coffee- ground emesis. Admitted for acute blood loss anemia secondary to GI bleed for investigation. For her symptomatic acute blood loss anemia patient was treated with 3 units PRBC after which hemoglobin improved to 7.8 from 4.6. Patient also had an EGD done. EGD completed on 07/27/2024 findings include: Esophagitis lower third of esophagus, 1 nonbleeding cratered gastric ulcer with a clean ulcer base [Scot class III] found in the lesser curvature gastric body. The lesion was 25 mm in largest diameter. Biopsies were taken with a cold forceps for histology. The second portion of the duodenum was normal. Rockall score complete: 4 points; 14.1% rebleeding risk GI, Dr. Stevenson recommended Carafate suspension 1 g 4 times daily, Protonix 80 Mg p.o. twice daily, Maalox 15 mL p.o. Q4 hourly and to avoid NSAIDs. She will need an antireflux regimen indefinitely. All patient's labs are now returning to baseline. Patient is now clinically stable and fit for discharge back to home. Discharge diagnoses: 1. Symptomatic acute blood loss anemia?resolving 2. Upper GI bleed?resolved 3. Gastric ulcer [Scot class III] 4. Palpitations/resolved 5. Weakness?resolved 6. Bilateral lower extremity swelling?chronic 7. ?PAD 8. Chronic venous insufficiency 9. Essential hypertension 10. Hypothyroidism 11. Vertigo for investigation 12. History of TIA Discharge plan: - You have been started on a medication Maalox for your gastric ulcer. Please take 15 ml 4 times a day. - You have been started on a medication Protonix for your gastric ulcer. Please take 2 tablets twice a day. - You have been started on a medication Sucralfate for your gastric ulcer. Take four times a day as directed. - We have discontinued your Aspirin due to your recent bleed and Gastric Ulcer. Please follow up with your primary doctor to decide on restarting in 2 weeks. - We have stopped your Ibuprofen due to your Ulcer. Please avoid any NSAID including alleve and motrin to prevent any further episodes of bleeding. If necesary use diclofenac ointment or Tylenol as prescribed. - You can continue your Plavix daily for prevention of stroke. - Please follow a bland diet. No coffee, no salsa or chile. Also please try to avoid alcohol. - Please follow up with your primary doctor within 1 week of discharge. - Please follow up with GI, Dr. Stevenson within 2 weeks of discharge for pathology results from your endoscopy. Call his office to schedule appointment - If you experience any new, worsening or persistent symptoms either call your primary care doctor, [facility] 911 or present to the emergency department. We are grateful to be able to participate in Ms. Rubin's care. We wish her the best. Plan of care discussed with Attending Dr. Fan and PGY3 Dr. Cameron Nicolas MD PGY 1 Time Spent with Patient Time attestation: Total time spent providing and/or coordinating discharge services: Time spent: Greater than 30 minutes (37) Exam Vital Signs Temp Pulse Resp BP Pulse Ox O2 Del Method O2 Flow Rate 98.7 F 75 16 135/83 H 97 Room Air 3 07/29/24 08:00 07/29/24 08:08 07/29/24 08:00 07/29/24 08:08 07/29/24 08:00 07/29/24 08:00 07/27/24 19:20 FiO2 100 07/27/24 04:00 Narrative Exam Constitutional: Alert to person, place and time. Resting comfortably in bed with her daughter, Diego, at bedside. CHEST: Symmetrical, atraumatic, and with equal expansion , Nontender on palpation no deformity and no crepitus. CARDIOVASCULAR: Heart regular rhythm no murmur or gallop rub or extra beats. LUNGS: Clear to auscultation bilaterally with symmetrical chest rise.? No laboring tachypnea or wheezing.? No intercostal subcostal retraction.? No rales and no rhonchi. ABDOMEN: Soft, obese, nontender to palpation, no guarding or rebound tenderness.? There are no abnormal masses palpated.? Active and normal bowel sounds. EXTREMITIES: 1+ pitting edema bilaterally in lower extremities up to knees Discharge Plan Plan Patient Disposition: HOME (Self Care) Care Plan Goals: - You have been started on a medication Maalox for your gastric ulcer. Please take 15 ml 4 times a day. - You have been started on a medication Protonix for your gastric ulcer. Please take 2 tablets twice a day. - You have been started on a medication Sucralfate for your gastric ulcer. Take four times a day as directed. - We have discontinued your Aspirin due to your recent bleed and Gastric Ulcer. Please follow up with your primary doctor to decide on restarting in 2 weeks. - We have stopped your Ibuprofen due to your Ulcer. Please avoid any NSAID including alleve and motrin to prevent any further episodes of bleeding. If necesary use diclofenac ointment or Tylenol as prescribed. - You can continue your Plavix daily for prevention of stroke. - Please follow a bland diet. No coffee, no salsa or chile. Also please try to avoid alcohol. - Please follow up with your primary doctor within 1 week of discharge. - Please follow up with GI, Dr. Stevenson within 2 weeks of discharge for pathology results from your endoscopy. Call his office to schedule appointment - If you experience any new, worsening or persistent symptoms either call your primary care doctor, diall 911 or present to the emergency department. Prescriptions/Referrals Prescriptions/Med Rec: New pantoprazole [Protonix] 40 mg tablet,delayed release (DR/EC) 80 mg PO BID 30 Days Qty: 120 0RF alum-mag hydroxide-simeth [Maalox Advanced] 200-200-20 mg/5 mL suspension 15 ml PO QID 30 Days Qty: 1800 0RF Rx Instructions: administer between meals and at bedtime sucralfate 100 mg/mL Suspension 1 g PO QID 30 Days Qty: 1200 0RF acetaminophen 500 mg capsule 500 mg PO Q6H PRN (Reason: Fever>100.4 or Mild Pain (1-3)) Qty: 20 0RF Continued lisinopril 10 MG tablet 10 mg PO QDAY Qty: 0 hydrocodone-acetaminophen 10-325 mg tablet 1 tab PO [id number] PRN (Reason: ARTHIRITIS PAIN) meclizine 25 mg tablet 25 mg PO TID PRN (Reason: Vertigo) atorvastatin 40 mg tablet 40 mg PO QPM 30 Days Qty: 30 0RF clopidogrel 75 mg tablet 75 mg PO DAILY Changed levothyroxine 75 mcg tablet 75 mcg PO DAILY 30 Days Qty: 30 0RF Held aspirin 81 mg capsule 81 mg PO QDAY 30 Days Qty: 30 2RF Hold Instructions: Resume on 08/12/24. HOLD ASPIRIN FOR 2 WEEKS Discontinued ibuprofen 800 mg tablet 800 mg PO PRN PRN (Reason: Pain) Referrals: Ino Beasley [Primary Care Provider] - Medina Stevenson MD [Physician] - Patient/Caregiver Discharge Instructions Education Materials: Upper GI Endoscopy, Dizziness Balance Probs Fainting Print Language: Wolof Stand Alone Forms: [employer] Info., Patient Portal Info Letter Discharge Order Discharge Orders: Discharge (Routine); Ordered 07/29/24 Ordered By: Olamide Barnes Quality Discharge Quality Measures VTE prophylaxis (SCD)
[2024-07-29] MEDS: ACETAMINOPHEN 325 MG TABLET 650 MG PO (10:39)
--- NOTE | 2024-07-29 11:00 | ESPR_ITS ---
Documentation for date of: 07/29/24 Subjective Subjective Interval history: Hemoglobin hematocrit stable at 7.8 and 22.7 Patient can be discharged home to be followed by me as an outpatient for a repeat endoscopy in 12 weeks Exam Vital Signs Temp Pulse Resp BP Pulse Ox O2 Del Method O2 Flow Rate 98.7 F 75 16 135/83 H 97 Room Air 3 07/29/24 08:00 07/29/24 08:08 07/29/24 08:00 07/29/24 08:08 07/29/24 08:00 07/29/24 08:00 07/27/24 19:20 FiO2 100 07/27/24 04:00 Objective Labs 07/29/24 04:42 07/29/24 04:42 Labs: Laboratory Results - last 24 hr 07/26/24 07/29/24 11:17 04:42 WBC 4.6 RBC 2.57 L Hgb 7.8 L Hct 22.7 L MCV 88 MCH 30.4 MCHC 34.4 RDW Std Deviation 48.6 H Plt Count 171 Neut % (Auto) 59 Lymph % (Auto) 26 [place] % (Auto) 11 Eos % (Auto) 4 Baso % (Auto) 0 Neut # (Auto) 2.7 Lymph # (Auto) 1.2 [place] # (Auto) 0.5 Eos # (Auto) 0.2 Baso # (Auto) 0.0 Immature Gran # (Auto) 0.01 H Absolute Nucleated RBC 0.00 Immature Gran % 0 Nucleated RBC % 0 Sodium 139 Potassium 3.5 Chloride 107 Carbon Dioxide 27.3 Anion Gap 5 L BUN < 5 L Creatinine 0.4 L Estim Creat Clear Calc 109.5 eGFR > 60 BUN/Creatinine Ratio 13 Glucose 95 Calculated Osmolality 274 L Calcium 8.5 Magnesium 1.9 Blood Type O Positive Antibody Screen NEGATIVE Crossmatch See Detail Blood Bank Wristband ID Yes Impressions Impression: # Gastric ulcer # Acute posthemorrhagic anemia Okay to discharge home on PPI twice daily with sucralfate follow-up outpatient Assessment & Plan A&P Narrative # Acute posthemorrhagic anemia with clinical presentation of melena and coffee- ground hematemesis in a patient who takes Plavix Plan Agree with the blood transfusion IV Protonix Serial CBC Consent obtained for fiberoptic esophagogastroduodenoscopy with possible therapeutic intervention under intravenous moderate sedation scheduled for tomorrow Clear liquid diet till 11 AM tomorrow then nBenjaminp.o. Other medical problems include # Peripheral vascular disease requiring intervention # Rheumatoid arthritis # Essential hypertension Thank you very much for the opportunity to participate in care of this patient Time Spent With Patient Time: Total time spent is greater than 50% in coordination of care (as documented) at patient's floor/unit and/or counseling patient:
[2024-07-29 12:00] VITALS: BP 132/83; PULSE 68; PULSE 89; RESP 18; TEMP 36.2; O2SAT 99
== END 2024-07-29 14:22 | disposition home or self-care (01) | DRG 377 ==
LOC: SERX 13:51 → SERHOLD 13:57 → S3SX 20:09
PROVIDERS: Nurse Practitioner Primary Care; Specialist; Student in an Organized Health Care Education/Training Program; Admitting Provider Internal Medicine; Emergency Provider Emergency Medicine; PCP Physician Assistant; Visit Provider Internal Medicine
PROC: 0DB68ZX Excision of Stomach, Via Natural or Artificial Opening Endoscopic, Diagnostic (ICD-10-PCS; CPT 43239; principal; 2024-07-27 16:00)
DX: K25.4 Chronic or unspecified gastric ulcer with hemorrhage (principal); K20.91 Esophagitis, unspecified with bleeding; D62 Acute posthemorrhagic anemia; Z86.73 Personal history of transient ischemic attack (TIA), and cerebral infarction without residual deficits; R00.2 Palpitations; E03.9 Hypothyroidism, unspecified; R42 Dizziness and giddiness; I87.2 Venous insufficiency (chronic) (peripheral); M06.9 Rheumatoid arthritis, unspecified; I50.9 Heart failure, unspecified; I11.0 Hypertensive heart disease with heart failure
CPT/HCPCS: 36415; 36430; 71045; 80048; 80053; 80061; 81001; 83036; 83605; 83735; 83880; 84100; 84443; 84484; 85014; 85018; 85025; 85610; 85730; 86850; 86900; 86901; 86923; 87081; 93005; 93225; 96361; 96365; 96366; 96375; 99285; A4217; J1200; J2250; J2470; J3010; J3475; J3480; J7030; P9016; A9270

== ENCOUNTER 2024-11-16 08:30 | Outpatient (RCR) | payer OTHER, SELFPAY ==
--- NOTE | 2024-11-15 08:30 | XR_ITS ---
Examination: Nuclear medicine thyroid uptake and scan Exam date and time: November 15, 2024 0739 hrs. Indications: Cardiac palpitations, palpable mass in the neck elevated TSH Technique And Findings: Oral administration 288 uCi I-123 6 hour 24 hour uptake values recorded as well as anterior and bilateral oblique scans 6 hour uptake 12.3% normal range 6-24% 24 hour uptake 19.5% normal range 10-36% Homogeneous scans activity Impression: Negative examination
== END 2024-11-21 23:59 | disposition home or self-care (01) ==
LOC: SNUC 08:30
PROVIDERS: PCP Physician Assistant; Referring Provider Physician Assistant; Visit Provider Physician Assistant
DX: E03.9 Hypothyroidism, unspecified (principal)
CPT/HCPCS: 78013; A9516

== ENCOUNTER → 2024-12-01 | Outpatient (CLI) | payer OTHER, SELFPAY ==
--- NOTE | 2024-12-01 10:15 | XR_ITS ---
Examination: Screening digital mammography, bilateral Computer aided detection 3-D breast Tomosynthesis, bilateral Date and time of exam: December 01, 2024 0957 hours Compared to mammograms dating to November 21, 2014 Indication: Screening Technique: Nonmagnified MLO, CC views of the breasts to been obtained, reconstructed from 3-D Tomosynthesis images. R2 computer aided detection program utilized for evaluation of suspicious masses and/or abnormal calcifications. 3-D Tomosynthesis images obtained. Findings: The breasts are heterogeneously dense Benign calcifications. No interval suspicious masses Impression: BI-RADS category II: Benign Findings. Recommend 1 year follow-up mammogram.
== END | disposition home or self-care (01) ==
LOC: CDIM 09:50
PROVIDERS: PCP Obstetrics & Gynecology; Referring Provider Obstetrics & Gynecology; Visit Provider Obstetrics & Gynecology
DX: Z12.31 Encounter for screening mammogram for malignant neoplasm of breast (principal); R92.323 Mammographic fibroglandular density, bilateral breasts
CPT/HCPCS: 77063; 77067

== ENCOUNTER → 2025-03-07 | Outpatient (CLI) | payer MEDICARE, SELFPAY ==
--- NOTE | 2025-03-07 10:00 | XR_ITS ---
Exam: MRI knee without contrast, left Date and time of exam: March 07, 2025 0959 hours INDICATIONS: Generalized knee pain weakness joint clicking swallowing 10 months Technique: Multiple axial, coronal, and sagittal sections on the knee have been obtained. T2-Weighted sagittal, fat-suppressed images, TR 3,500, TE 62, T2 weighted coronal fat-saturated images, TR 3,500, TE 62 Proton density sagittal sections, TR 1800, TE 31. T-1 weighted coronal images, TR 524, TE 13.0 Findings: Medial meniscus anterior horn indication intermargin. Medial meniscus, body severe truncation intermargin extruded from the joint space. Posterior horn medial meniscus truncation intermargin replaced by isointense signal. Lateral meniscus anterior horn absent Lateral meniscus, body replaced by isointense signal Posterior horn lateral meniscus replaced by isointense signal Anterior cruciate ligament absent Posterior cruciate ligament appears intact. Knee effusion is large. Quadriceps and patellar tendons appear intact. There is no evidence of tendinosis. Inflammatory change or fracture of Hoffa's fat pad is not seen. Medial patellar facet demonstrates severe thinning. Lateral patellar facet cartilage demonstrates severe thinning. Trochlear cartilage demonstrates near thinning. Marrow signal increased about the medial joint space. Medial collateral ligament appears intact. No meniscocapsular separation is seen. Illiotibial band and fibular collateral ligament are intact. Biceps femoris tendons appear intact. Medial femoral condylar articular cartilage demonstrates severe thinning. Lateral femoral condylar articular cartilage demonstratessevere thinning. Tibial plateau cartilage demonstrates severe thinning. Impression: Extensive complex tears medial lateral menisci Advanced tricompartment osteoarthritis Absent anterior cruciate ligament
== END | disposition home or self-care (01) ==
LOC: SMRI 09:25
PROVIDERS: PCP Physician Assistant; Referring Provider Physician Assistant; Visit Provider Physician Assistant
DX: M17.12 Unilateral primary osteoarthritis, left knee (principal); M25.862 Other specified joint disorders, left knee; S83.282A Other tear of lateral meniscus, current injury, left knee, initial encounter; S83.242A Other tear of medial meniscus, current injury, left knee, initial encounter; X58.XXXA Exposure to other specified factors, initial encounter
CPT/HCPCS: 73721

== ENCOUNTER 2025-06-08 10:11 | Outpatient (AMB) | payer MEDICARE, SELFPAY ==
[2025-06-08 10:48] VITALS: BP 150/79; PULSE 69; RESP 18; TEMP 36.4; O2SAT 95; BMI 32.1
--- NOTE | 2025-06-08 10:48 | PD.ORTHCLVIS ---
Vital signs 06/08/25 10:48 Height 1.52 m Height Method Stated Weight 74.616 kg Weight Measurement Method Standing Scale BMI 32.1 BP 150/79 H Blood Pressure Source Automatic Cuff Blood Pressure Location Left Upper Arm Position Sitting Respiration 18 Pulse 69 Pulse Source Monitor Temp 97.5 F Temp Source Temporal Artery Scan Pulse Oximetry (%) 95 Oxygen Delivery Method Room Air Med/Allergies Allergies & Medications Allergies No Known Allergies Allergy (Verified 06/08/25 10:49) Medication Reconciliation lisinopril 10 mg tablet 10 mg PO QDAY High Blood Pressure #0 tabs 05/09/15 [History Confirmed 06/08/25] hydrocodone 10 mg-acetaminophen 325 mg tablet 1 tab PO [id number] PRN ARTHIRITIS PAIN 07/16/24 [History Confirmed 06/08/25] meclizine 25 mg tablet 25 mg PO TID PRN Vertigo 07/16/24 [History Confirmed 06/08/25] aspirin 81 mg capsule 81 mg PO QDAY 1 month #30 caps 07/17/24 [Rx Confirmed 06/08/25] Held on 07/29/24. Instructions: Resume on 08/12/24. HOLD ASPIRIN FOR 2 WEEKS clopidogrel 75 mg tablet 75 mg PO DAILY 07/26/24 [History Confirmed 06/08/25] levothyroxine 75 mcg tablet 75 mcg PO DAILY 30 days #30 tabs 07/28/24 [Rx Confirmed 06/08/25] acetaminophen 500 mg capsule 500 mg PO Q6H PRN Fever>100.4 or Mild Pain (1-3) #20 caps 07/29/24 [Rx Confirmed 06/08/25] Assessment and Plan Advanced Care Planning Discussion Advance care planning discussed with:: patient and child Office Procedures GNS Level of Care Nursing/Assessment Patient Status: Initial/New Patient Nursing Assessment/Reassesment: Medication Reconciliation, Update PMH in EMR and Vital Signs Coordination of Care: Complex Care and Chronic Disease 1-5, Education Complex Pt/Fam, Consent,records obtained, informed consent, 1 Ins Authorization, Lab and Imaging orders, Results/Orders obtained and Staff clarify orders New Patient Charge New Patient Point Assignment: 1124 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 ([id number]) [place] Intake Visit Data Collection New Patient or Established: New Patient (never been to [facility]) Reason for Visit:: BL KNEE PAIN Seen by Clinical Staff ONLY (RN/MA): No Treater Helper Required: No PCP or OBGYN visit in last 3 months: Yes Hx Now: No Do You Feel Safe at Home: Yes Authorities Contacted: N/A Questionairres Past Medical History Past Medical History Have you ever been diagnosed with any of the following: Neurological Problems Seizures: No Cardiology Problems Congestive Heart Failure: No Hypertension: Yes Varicose Veins: Yes Respiratory Problems Chronic Obstructive Pulmonary Disease (COPD): No Asthma: No Genital/Urinary Problems Renal Disease: No Reproductive Problems Previous Pregnancies: Yes Musculoskeletal Problems Rheumatoid Arthritis: Yes Head,Eye,Nose,Throat Problems Cataracts: Yes Endocrine Problems Diabetes Mellitus Type 1: No Diabetes Mellitus Type 2: No Hypothyroidism: Yes Blood Problems Sickle Cell Disease: No Other Problems Hospitalization: No Shingles: Yes Blood Transfusions: Yes Blood Transfusion Reaction: No Anesthesia Reactions: No MRSA: No Chicken Pox: Yes Measles: Yes Mumps: Yes Cancer: No Subjective Visit Visit for: new patient and knee (BILATERAL) Immunization / Flu Flu Vaccine in the Last 12 Months: Yes Flu Vaccine Exclusion Criteria: Already Received History of Present Illness Chief complaint: LEFT > RIGHT Date of injury / onset of symptoms: 10 YEARS Pain Pain level (0-10): 9 Pain duration: CONSTANT Pain location: inside (medial) and anterior Pain quality: sharp, dull, aching and other (specify) (SWELLING) Pain timing: night and increases with activity Associated signs & symptoms: numbness, weakness and other (specify) (HEAVY) Ambulatory data Ambulatory device: none Treatments Number of previous injections: 0 Improvement with previous injections: No Number of Physical Therapy sessions: 0 Improvement with PT: No Improvement with NSAIDS: no Review of Systems Review of Systems: All systems negative unless otherwise noted in HPI.
--- NOTE | 2025-06-08 10:51 | XR_ITS ---
EXAMINATION: Bilateral knees 2 views Bilateral knee left lateral knee 2 views Bilateral axial knee single view TECHNIQUE: Bilateral AP knees single view, bilateral PA knees standing flexion single view Standing right lateral knee left lateral knee 2 views Bilateral axial knee single view total 5 views Date and time: June 08, 2025, 1128 hours INDICATION: Bilateral knee pain beginning 10 years ago. FINDINGS: Severe osteopenia Severe narrowing lateral joint space right knee, [id number] Advanced osteoarthritis and narrowing right patellofemoral joint Moderate knee effusion No fracture Severe narrowing [id number] medial and lateral joint spaces left knee with subluxation of the femoral condyles medially relative to the tibial plateau Advanced osteoarthritis left patellofemoral joint Moderate knee effusion IMPRESSION: Severe narrowing lateral joint space right knee, advanced osteoarthritis and narrowing right patellofemoral joint Severe left knee tricompartment osteoarthritis including severe narrowing [id number] medial and lateral joint spaces left knee
== END 2025-06-08 11:01 | disposition home or self-care (01) ==
LOC: HODSRG 10:11
PROVIDERS: PCP Physician Assistant; Referring Provider Physician Assistant; Supervising Provider Orthopaedic Surgery Adult Reconstructive Orthopaedic Surgery; Visit Provider Orthopaedic Surgery Adult Reconstructive Orthopaedic Surgery
DX: M25.562 Pain in left knee (principal); M25.561 Pain in right knee; M17.0 Bilateral primary osteoarthritis of knee
CPT/HCPCS: 73564; 99204; G0463

== ENCOUNTER 2025-06-13 10:28 | Emergency (ER) | payer MEDICARE, SELFPAY ==
[2025-06-13 10:58] VITALS: BP 167/94; PULSE 67; RESP 16; TEMP 36.7; O2SAT 98; BMI 32.8
--- NOTE | 2025-06-13 11:16 | PD.EDRME ---
Rapid Medical Screening Exam RME Arrival date/time: 06/13/25 10:28 75-year-old female presents to the Emergency Department today with daughter per the daughter she had lab work done as part of a program for better health reports that the patient had a low hemoglobin Chief Complaint: Recheck/Abnormal Lab/Rx Vital signs: Vital Signs Temperature 98.0 F 06/13/25 10:58 Pulse Rate 67 06/13/25 10:58 Respiratory Rate 16 06/13/25 10:58 Blood Pressure 167/94 H 06/13/25 10:58 Pulse Oximetry (%) 98 06/13/25 10:58 Oxygen Delivery Method Room Air 06/13/25 10:58 Vital signs reviewed by provider: Yes Exam: On exam patient well-appearing patient does not appear toxic distress Patient was no chest pain no shortness of breath no headache dizziness weakness I reviewed the patient's outpatient labs hemoglobin 10.6 which does not require intervention Lab work was done 2 weeks ago I will repeat lab work at this time Clinical Impression: Medically patient well-appearing does not appear ill or toxic lab work ordered
--- NOTE | 2025-06-13 15:57 | PC.NURSE ---
NA X3 @[phone] and [phone]. Patient eloped ED.
== END 2025-06-13 15:50 | disposition left against medical advice (07) ==
LOC: SERX 16:16
PROVIDERS: Emergency Provider Emergency Medicine
DX: D64.9 Anemia, unspecified (principal); Z53.29 Procedure and treatment not carried out because of patient's decision for other reasons
CPT/HCPCS: 80053; 83735; 85025; 85610; 85730; 86850; 86900; 86901; 99281

== ENCOUNTER → 2025-06-23 | Outpatient (CLI) | payer MEDICARE, SELFPAY ==
[2025-06-23 11:00] LABS: Basophils # (Auto) 0.0 Thou/mm3 (0.0-0.2); Basophils % (Auto) 0 % (0-2.5); Eosinophils # (Auto) 0.0 Thou/mm3 (0.0-0.5); Eosinophils % (Auto) 0 % (0-10); Hematocrit 33.8 % (36.0-46.0); Hemoglobin 11.3 g/dL (12.0-16.0); Immature Granulocytes Auto 0.02 Thou/mm3 (0.00-0.00); Lymphocytes # (Auto) 1.0 Thou/mm3 (1.0-4.8); Lymphocytes % (Auto) 18 % (10-50); Mean Corpuscular HGB Conc 33.4 g/dl (31.0-37.0); Mean Corpuscular Hemoglobin 31.9 pg (25.0-35.0); Mean Corpuscular Volume 96 fL (80-100); Monocytes # (Auto) 0.4 Thou/mm3 (0.0-0.8); Monocytes % (Auto) 7 % (0-12); Neutrophils # (Auto) 4.2 Thou/mm3 (1.8-7.7); Neutrophils % (Auto) 74 % (37-80); Nucleated Red Blood Cell # 0.00 Thou/mm3 (0.00-0.00); Nucleated Red Blood Cell % 0 /100 WBC (0); Platelet Count 201 Thou/mm3 (140-440); RDW Standard Deviation 48.0 fL (36.4-46.3); Red Blood Count 3.54 Miln/mm3 (4.00-5.20); White Blood Count 5.6 Thou/mm3 (3.6-11.0)
[2025-06-23 11:07] LABS: INR 1.0 (0.9-1.3); Partial Thromboplastin Time 27.1 Seconds (22.0-36.0); Prothrombin Time 10.3 Seconds (9.0-12.2)
[2025-06-23 11:14] LABS: Alanine Aminotransferase 22 U/L (10-49); Albumin, Serum 4.4 gm/dL (3.4-4.8); Albumin/Globulin Ratio 2.4 (1.2-2.2); Alkaline Phosphatase 73 U/L (46-116); Anion Gap 9 (7-16); Aspartate Amino Transferase 30 U/L (0-34); BUN/Creatinine Ratio 18 Ratio (12-20); Bilirubin,Total 0.6 mg/dL (0.3-1.2); Blood Urea Nitrogen 9 mg/dL (9-23); Calcium 9.2 mg/dL (8.3-10.6); Calcium (Corrected) 9.2 mg/dL (8.5-10.1); Carbon Dioxide 25.0 mMol/L (20.0-31.0); Chloride 105 mMol/L (98-107); Creatinine (Component) 0.5 mg/dL (0.6-1.3); Globulin 1.8 gm/dL (2.3-3.5); Glucose 103 mg/dL (74-106); Glucose Estimated Average 103 mg/dL (80-131); Hemoglobin A1C 5.2 % Hgb (4.8-6.0); Osmolality,Calculated 276 (275-295); Potassium 4.3 mMol/L (3.4-5.1); Sodium 139 mMol/L (136-145); Total Protein 6.2 gm/dL (5.7-8.2); eGFR > 60 See Note
== END | disposition home or self-care (01) ==
LOC: SLAB 08:58
PROVIDERS: PCP Physician Assistant; Referring Provider Physician Assistant; Visit Provider Physician Assistant
DX: Z01.818 Encounter for other preprocedural examination (principal); R73.03 Prediabetes
CPT/HCPCS: 36415; 80053; 83036; 85025; 85610; 85730

== ENCOUNTER 2025-06-27 10:48 | Observation (INO) | payer MEDICARE, SELFPAY ==
--- NOTE | 2025-06-23 06:34 | EKG_ITS ---
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
[2025-06-23 07:20] VITALS: BMI 32.9
[2025-06-23 10:18] LABS: Collection Type, Urine Clean Catch
[2025-06-23 10:58] LABS: Basophils # (Auto) 0.0 Thou/mm3 (0.0-0.2); Basophils % (Auto) 0 % (0-2.5); Eosinophils # (Auto) 0.0 Thou/mm3 (0.0-0.5); Eosinophils % (Auto) 0 % (0-10); Hematocrit 33.5 % (36.0-46.0); Hemoglobin 11.3 g/dL (12.0-16.0); Immature Granulocytes Auto 0.01 Thou/mm3 (0.00-0.00); Lymphocytes # (Auto) 1.0 Thou/mm3 (1.0-4.8); Lymphocytes % (Auto) 18 % (10-50); Mean Corpuscular HGB Conc 33.7 g/dl (31.0-37.0); Mean Corpuscular Hemoglobin 32.8 pg (25.0-35.0); Mean Corpuscular Volume 97 fL (80-100); Monocytes # (Auto) 0.4 Thou/mm3 (0.0-0.8); Monocytes % (Auto) 7 % (0-12); Neutrophils # (Auto) 4.2 Thou/mm3 (1.8-7.7); Neutrophils % (Auto) 75 % (37-80); Nucleated Red Blood Cell # 0.00 Thou/mm3 (0.00-0.00); Nucleated Red Blood Cell % 0 /100 WBC (0); Platelet Count 203 Thou/mm3 (140-440); RDW Standard Deviation 49.0 fL (36.4-46.3); Red Blood Count 3.45 Miln/mm3 (4.00-5.20); White Blood Count 5.6 Thou/mm3 (3.6-11.0)
[2025-06-23 11:16] LABS: Alanine Aminotransferase 22 U/L (10-49); Albumin, Serum 4.4 gm/dL (3.4-4.8); Albumin/Globulin Ratio 2.3 (1.2-2.2); Alkaline Phosphatase 70 U/L (46-116); Anion Gap 9 (7-16); Aspartate Amino Transferase 29 U/L (0-34); BUN/Creatinine Ratio 20 Ratio (12-20); Bilirubin,Total 0.6 mg/dL (0.3-1.2); Blood Urea Nitrogen 10 mg/dL (9-23); Calcium 9.3 mg/dL (8.3-10.6); Calcium (Corrected) 9.3 mg/dL (8.5-10.1); Carbon Dioxide 25.2 mMol/L (20.0-31.0); Chloride 105 mMol/L (98-107); Creatinine (Component) 0.5 mg/dL (0.6-1.3); Estimated Creatinine Clearance 85.2 mL/min (>60); Globulin 1.9 gm/dL (2.3-3.5); Glucose 103 mg/dL (74-106); Osmolality,Calculated 276 (275-295); Potassium 4.4 mMol/L (3.4-5.1); Sodium 139 mMol/L (136-145); Total Protein 6.3 gm/dL (5.7-8.2); eGFR > 60 See Note
[2025-06-23 11:18] LABS: Amorphous Crystals,Urine Present (Absent); Bacteria,Urine Rare; Bilirubin,Urine Negative (Negative); Blood,Urine Negative (Negative); Color,Urine Yellow (Lt Yel-Yel); Glucose, Urine Negative (Negative); Hyaline Casts,Urine < 1 /hpf (0-1); Ketones,Urine Negative (Negative); Leukocyte Esterase,Urine Positive (Negative); Nitrite,Urine Negative (Negative); PH,Urine 7.5 (5.0-7.0); Protein,Urine Negative (Neg - Trace); RBC,Urine 7 /hpf (0-3); Specific Gravity,Urine 1.013 (1.001-1.035); Squamous Epithelial Cell,Urine 9 /hpf (0-5); Urobilinogen,Urine Negative mg/dL (0.0-1.0); WBC,Urine 15 /hpf (0-5)
[2025-06-23 11:20] LABS: Clarity,Urine Hazy (Clear/Hazy)
--- NOTE | 2025-06-26 11:32 | ESHP_ITS ---
RE: SANFORD YE : 1950 DATE OF ADMISSION: 06/26/2025 HISTORY OF PRESENT ILLNESS: Patient is a 74-year-old female, Malay speaking, with urinary stress incontinence. She leaks urine on any kind of stress of sneezing, coughing, laughing. She has nocturia x3. PAST SURGICAL HISTORY: Previous surgeries included 1 and surgery on her ovaries. PAST MEDICAL HISTORY: She has 5 kids. She has no history of diabetes mellitus. She does have history of hypertension. ALLERGIES: NONE KNOWN. HOME MEDICATIONS: She takes lisinopril and thyroid medications. PHYSICAL EXAMINATION: HEENT: Normal. NECK: Supple. LUNGS: Clear. CARDIOVASCULAR: Heart sounds are normal. ABDOMEN: Soft without any organomegaly. No guarding. No rigidity. EXTREMITIES: Normal PELVIC: Revealed grade 2 urethrocele. Patient had cystoscopy which revealed low residual urine, normal capacity bladder, no intravesical stones or tumors, gross urinary stress incontinence, positive Brando's test. There are no uninhibited bladder contractions when the bladder was filled slowly. IMPRESSION: Gross urinary stress incontinence. PLAN: Treatment options were given to the patient. Patient has decided to have surgery. She is now scheduled to have cystoscopy, bladder neck suspension, urethrolysis with Lynx vaginal sling procedure. Planned procedure risks and complications have been discussed with the patient. Patient has understood them and agreed to proceed. DT: 11:: TT: 11::00 Ref: [id number] - TID: [id number]
[2025-06-27] VITALS (13 sets, daily range): BP systolic 76–166; BP diastolic 46–94; PULSE 60–84; RESP 15–20; TEMP 36.1–37.3; O2SAT 93–99; BMI 32.2
--- NOTE | 2025-06-27 08:47 | CHAP ---
Prayed with patient before her procedure.
--- NOTE | 2025-06-27 09:58 | SUR.OPER ---
No SCDs used - patient has multiple bruises on bilateral lower extremities
--- NOTE | 2025-06-27 10:28 | SUR.PHASEI ---
1028: Pt. wakes to name then drifts back to sleep, vitals stable, breathing unlabored, no complaint of pain or nausea, dressing to vaginal area CDI, braga catheter in place draining clear yellow urine, report received from Tobi CORCORAN and Mary CEDILLO.
[2025-06-27] MEDS: fentaNYL CIT INJ 50 mCg/ML AMP 2ML 25 MCG IVP (10:43)
[2025-06-27] MEDS: DEXTROSE 5%-LACTATED RINGERS 1,000 ML 100 ML IV ×2 (11:25→21:13)
--- NOTE | 2025-06-27 12:35 | SUR.PHASEII ---
1235: Pt. AAOx4, vitals stable, breathing unlabored, no complaint of pain or nausea, dressing to monie area CDI, no active bleed noted, braga catheter in place draining clear yellow urine, pt. tolerated bites of ice chips well, gave report to Kira RN prior to transfer to room. Pt. family aware of transfer to room 359. Pt. transferred with all personal belongings.
--- NOTE | 2025-06-27 16:13 | ESOP_ITS ---
RE: SANFORD YE : 1950 PREOPERATIVE DIAGNOSIS: Gross urinary stress incontinence. POSTOPERATIVE DIAGNOSIS: Gross urinary stress incontinence. PROCEDURES PERFORMED: Bladder neck suspension, cystoscopy, urethrolysis with Lynx vaginal sling procedure. ANESTHESIA: General by Dr. Jackson. INDICATION: Patient is 75-year-old female who was referred to me with history of gross urinary stress incontinence. She loses urine on any kind of stress or sneezing, coughing, laughing, jumping. She has been bothered too much with urinary incontinence. She had a trial of oxybutynin extended release, but did not help. She had a cystoscopy, which revealed a low residual urine, normal capacity bladder, no intravesical stones or tumors, no uninhibited bladder contractions when bladder was filled slowly. Patient had a gross urinary stress incontinence with positive Brando's test. Patient was given treatment options. She has decided to have surgery. She is now scheduled to have bladder neck suspension, cystoscopy, urethrolysis with Lynx vaginal sling procedure. Planned procedure risks and complications have been discussed with the patient and her family. They have understood them and agreed to proceed. DESCRIPTION OF PROCEDURE: After the patient was brought to the operating table under adequate general anesthesia and dorsal lithotomy position, parts were prepped and draped in the usual fashion. 16-Nepali Barreto catheter was then inserted into the bladder and was left indwelling. Anterior vaginal wall submucosal injection of the local anesthetic was then done. A small vertical incision was then made between midurethra towards the neck of the bladder for about 1 cm. Dissection was then carried out on both sides underneath the vaginal mucosa for about 2 cm. Deep endopelvic fascia was then entered and urethrolysis was carried out on both sides. Retropubic space was identified. At this point in the suprapubic area, 2 transverse incisions were made about 0.5 cm long, about 3 cm from the midline in the suprapubic area. Lynx needles were passed from the suprapubic wound into the vaginal wound under finger control behind the pubic bone on both sides. At this point, cystoscopy was carried out. Barreto catheter from the bladder was removed. Cystoscope was then introduced into the bladder. There was no evidence of any injury to the bladder. I could not see any needles inside the bladder and the bladder appeared to be intact. Cystoscope was then removed and 16-Nepali Barreto catheter was placed back into the bladder. Sling was attached to both needles and was pulled in place. Excess of the sling and the sleeve of the sling were removed. Excessive tension on the sling was avoided. Anterior vaginal wall incision was then closed with continuous sutures of 2-0 chromic catgut. Suprapubic wounds were closed with interrupted sutures of 3-0 chromic catgut. Kerlix soaked in Betadine solution was used as a vaginal packing. Sterile dressing was then applied. Patient was then transferred to the recovery room in a satisfactory condition having tolerated the entire procedure well. Sponge count and needle count at the end of the procedure was found to be correct. Estimated blood loss was approximately 25 mL. DT: 10:37:47 TT: 16:12:00 Ref: [id number] - TID: [id number]
[2025-06-28] VITALS: BP 104/55; PULSE 76; RESP 18; TEMP 37.2; O2SAT 97
[2025-06-28] MEDS: KETOROLAC INJ 30 MG/ML VIAL IVP ×2 (01:01→11:30)
[2025-06-28 04:00] VITALS: BP 115/67; PULSE 77; RESP 18; TEMP 37.1; O2SAT 96
[2025-06-28 05:06] LABS: Basophils # (Auto) 0.0 Thou/mm3 (0.0-0.2); Basophils % (Auto) 0 % (0-2.5); Eosinophils # (Auto) 0.0 Thou/mm3 (0.0-0.5); Eosinophils % (Auto) 0 % (0-10); Hematocrit 28.8 % (36.0-46.0); Hemoglobin 9.8 g/dL (12.0-16.0); Immature Granulocytes Auto 0.04 Thou/mm3 (0.00-0.00); Lymphocytes # (Auto) 1.0 Thou/mm3 (1.0-4.8); Lymphocytes % (Auto) 9 % (10-50); Mean Corpuscular HGB Conc 34.0 g/dl (31.0-37.0); Mean Corpuscular Hemoglobin 32.2 pg (25.0-35.0); Mean Corpuscular Volume 95 fL (80-100); Monocytes # (Auto) 0.8 Thou/mm3 (0.0-0.8); Monocytes % (Auto) 8 % (0-12); Neutrophils # (Auto) 8.7 Thou/mm3 (1.8-7.7); Neutrophils % (Auto) 83 % (37-80); Nucleated Red Blood Cell # 0.00 Thou/mm3 (0.00-0.00); Nucleated Red Blood Cell % 0 /100 WBC (0); Platelet Count 171 Thou/mm3 (140-440); RDW Standard Deviation 46.8 fL (36.4-46.3); Red Blood Count 3.04 Miln/mm3 (4.00-5.20); White Blood Count 10.5 Thou/mm3 (3.6-11.0)
[2025-06-28 05:34] LABS: Albumin, Serum 3.5 gm/dL (3.4-4.8); Anion Gap 11 (7-16); BUN/Creatinine Ratio 23 Ratio (12-20); Blood Urea Nitrogen 14 mg/dL (9-23); Calcium 8.9 mg/dL (8.3-10.6); Calcium (Corrected) 9.3 mg/dL (8.5-10.1); Carbon Dioxide 23.2 mMol/L (20.0-31.0); Chloride 105 mMol/L (98-107); Creatinine (Component) 0.6 mg/dL (0.6-1.3); Estimated Creatinine Clearance 70.3 mL/min (>60); Glucose 130 mg/dL (74-106); Osmolality,Calculated 280 (275-295); Phosphorous 3.3 mg/dL (2.4-5.1); Potassium 3.9 mMol/L (3.4-5.1); Sodium 139 mMol/L (136-145); eGFR > 60 See Note
[2025-06-28] MEDS: DEXTROSE 5%-LACTATED RINGERS 1,000 ML 100 ML IV (06:48)
[2025-06-28] MEDS: LEVOTHYROXINE SODIUM 25 MCG TABLET 50 MCG PO (07:34)
[2025-06-28 08:00] VITALS: BP 127/83; PULSE 65; RESP 18; TEMP 36.4; O2SAT 96
[2025-06-28] MEDS: LEVOFLOXACIN/D5W 500 MG IVPB 500 MG/100 ML BAG 100 MG IV (09:15)
[2025-06-28 12:00] VITALS: BP 136/84; PULSE 74; RESP 18; TEMP 36.7; O2SAT 94
== END 2025-06-28 13:58 | disposition home or self-care (01) ==
LOC: S3NX 13:30
PROVIDERS: Anesthesiology; Admitting Provider Surgery; PCP Physician Assistant; Referring Provider Surgery; Visit Provider Surgery
PROC: 0TJB8ZZ Inspection of Bladder, Via Natural or Artificial Opening Endoscopic (ICD-10-PCS; CPT 57288; principal; 2025-06-27 11:30)
DX: N39.3 Stress incontinence (female) (male) (principal); Z01.810 Encounter for preprocedural cardiovascular examination
CPT/HCPCS: 57288; 36415; 80053; 80069; 81001; 85025; 87086; 93005; 96374; 96375; 96376; A4217; A4649; C1771; G0378; J0694; J1100; J1885; J1956; J2405; J2704; J2765; J3010; J3490; J7121; A9270

== ENCOUNTER 2025-07-04 09:29 | Outpatient (AMB) | payer MEDICARE, SELFPAY ==
--- NOTE | 2025-07-04 09:47 | PD.ORTHCLVIS ---
Vital signs 07/04/25 10:01 Height 1.5 m Height Method Stated Weight 73.936 kg Weight Measurement Method Standing Scale BMI 32.8 BP 148/91 H Blood Pressure Source Automatic Cuff Blood Pressure Location Left Upper Arm Position Sitting Respiration 19 Pulse 80 Pulse Source Monitor Temp 98.2 F Temp Source Temporal Artery Scan Pulse Oximetry (%) 97 Oxygen Delivery Method Room Air Med/Allergies Allergies & Medications Allergies No Known Allergies Allergy (Verified 07/04/25 10:01) Medication Reconciliation hydrocodone 10 mg-acetaminophen 325 mg tablet 1 tab PO [id number] PRN ARTHIRITIS PAIN 07/16/24 [History Confirmed 07/04/25] ferrous sulfate 325 mg (65 mg iron) tablet 325 mg PO BID 06/23/25 [History Confirmed 07/04/25] levothyroxine 50 mcg tablet 50 mcg PO DAILY 06/23/25 [History Confirmed 07/04/25] lisinopril 30 mg tablet 30 mg PO DAILY 06/23/25 [History Confirmed 07/04/25] losartan 100 mg-hydrochlorothiazide 25 mg tablet 1 tab PO DAILY 06/23/25 [History Confirmed 07/04/25] rosuvastatin 40 mg tablet 40 mg PO DAILY 06/23/25 [History Confirmed 07/04/25] ciprofloxacin HCl 500 mg tablet (Cipro) 500 mg PO BID #14 tabs 06/27/25 [Rx Confirmed 07/04/25] hydrocodone 5 mg-acetaminophen 325 mg tablet 1 tab PO Q6H PRN pain #30 tabs 06/27/25 [Rx Confirmed 07/04/25] Exam Exam Patient is in no acute distress and is cooperative with the examination today. Breathing is nonlabored. Patient has a normal mood and affect. Bilateral extremities were evaluated and demonstrates sensation intact to light touch. Palpable pedal pulses are present. No significant edema is present. Bilateral hips were examined. The patient has no pain with log roll of the hips. Internal rotation to 30 degrees and external rotation to 30 degrees is painless. Negative FADIR. Right knee was examined today. The right knee is in valgus alignment. Range of motion from 0-120 degrees. Knee is stable to varus and valgus as well as AP translation with <5mm. Patient has a negative McMurrays. There is no pain with patellofemoral compression and no crepitus noted. The knee is nontender to palpation. Left knee was examined today. The left knee is in varus alignment. Range of motion from 0-115 degrees. Knee is stable to varus and valgus as well as AP translation with <5mm. Patient has a negative McMurrays. There is no pain with patellofemoral compression and no crepitus noted. The knee is tender to palpation medially. Assessment and Plan Problem List (1) Rheumatoid arthritis: Status: Acute Plan Patient is a 75-year-old female with rheumatoid arthritis with bilateral knee pain worse on the left. She has extensive medical issues including prior stroke and is recently on Plavix. This will be need to be discontinued before surgery. We discussed the risks and benefits of surgery detail today The nature and purpose of the total knee replacement, alternative method(s) of treatment, the material risks involved, and the possibility of complications were fully explained to the patient. The patient does NOT have any of the following contraindications to TKA: - Active infection of the knee joint, OR - Active systemic bacteremia, OR - Active skin infection or open wound at surgical site, OR - Neuropathic arthritis, OR - Severe, rapidly progressive neurological disease, OR - Severe medical condition that makes risks of surgery outweigh the potential benefit The patient was told the most common risks and complications associated with a total knee replacement include, but are not limited to: blood clots in the leg, fatal pulmonary embolism, dislocation of the prosthesis, intraoperative and postoperative fractures of the femur or tibia, infection, failure of the prosthesis or grafting materials, complications from anesthesia, reactions to blood transfusions, postoperative leg length inequality, instability of the knee replacement, nerve damage or injury, vascular injury, delayed wound healing, infection, other injury or even . In addition, there are risks associated with anesthesia given during this operation. Also, the patient was told that after undergoing a total knee replacement there may still be persistent pain or disability. The patient was informed that the success of this operation in part depends upon the mechanical devices which are going to be implanted and that these devices can fail or malfunction, and may need to be repaired or replaced and there are no guarantees as to the longevity of this device or its parts and that it or its parts could fail prematurely. The patient was also notified that during the course of surgery, there may be a need to use bone graft from donors, and that any bone graft used will be carefully screened for communicable diseases, including AIDS, hepatitis, Hector-Creutzfeldt, or other diseases, but despite the screening procedures, there is a small chance that they could contract one of these diseases. Finally, the patient was asked to follow completely and fully with all advice and recommended treatments, and that recovery and ultimate outcome are affected by their compliance with recommended treatment. We discussed the risks, benefits and treatment alternatives, and the patient is interested in proceeding with surgery. We will try to set this up as expeditiously as possible. Advanced Care Planning Discussion Advance care planning discussed with:: patient and child Office Procedures GNS Level of Care Nursing/Assessment Patient Status: Established Patient Nursing Assessment/Reassesment: Medication Reconciliation, Update PMH in EMR and Vital Signs Coordination of Care: Complex Care and Chronic Disease 1-5, Education Complex Pt/Fam, Consent,records obtained, informed consent, Results/Orders obtained and Staff clarify orders Established Patient Charge Established Patient Point Assignment: 95 Established Patient Point Charge: Level 3 (80-115) MA Intake Visit Data Collection Reason for Visit:: BL KNEE PAIN Seen by Clinical Staff ONLY (RN/MA): No Pulmonary Function Technologist Required: No PCP or OBGYN visit in last 3 months: Yes Hx Now: No Do You Feel Safe at Home: Yes Authorities Contacted: N/A Questionairres Past Medical History Past Medical History Have you ever been diagnosed with any of the following: Neurological Problems Seizures: No Cardiology Problems Hypercholesterolemia: Yes Congestive Heart Failure: No Hypertension: Yes Varicose Veins: Yes Respiratory Problems Chronic Obstructive Pulmonary Disease (COPD): No Asthma: No Stomache/Intestinal Problems Ulcer: Yes Genital/Urinary Problems Renal Disease: No Reproductive Problems Previous Pregnancies: Yes Musculoskeletal Problems Arthritis: Yes Rheumatoid Arthritis: Yes Head,Eye,Nose,Throat Problems Cataracts: Yes Endocrine Problems Diabetes Mellitus Type 1: No Diabetes Mellitus Type 2: No Hypothyroidism: Yes Blood Problems Anemia: Yes Sickle Cell Disease: No Other Problems Hospitalization: No Shingles: Yes Blood Transfusions: No Blood Transfusion Reaction: No Anesthesia Reactions: No MRSA: No Chicken Pox: Yes Measles: Yes Mumps: Yes Cancer: No Subjective Visit Visit for: new patient and knee (BILATERAL) Immunization / Flu Flu Vaccine in the Last 12 Months: Yes Flu Vaccine Exclusion Criteria: Already Received History of Present Illness Chief complaint: LEFT > RIGHT Date of injury / onset of symptoms: 10 YEARS HISTORY OF PRESENT ILLNESS IJuan Manuel, have obtained verbal consent from the patient, to be recorded during this encounter which may include, but not limited to, medical history, examination, treatment plans, and relevant health information.? Patient was informed that recording will be read and reviewed by myself before inclusion in the medical chart. The patient is a 75-year-old female who presents with rheumatoid arthritis and pain ongoing for several years. She has had injections in the past. She has been managing her rheumatoid arthritis with [place], taken every 6 hours, as prescribed by Dr. Maciel. She is not currently on any specific medication for rheumatoid arthritis. 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 Pain Pain level (0-10): 9 Pain duration: CONSTANT Pain location: inside (medial) and anterior Pain quality: sharp, dull, aching and other (specify) (SWELLING) Pain timing: night and increases with activity Associated signs & symptoms: numbness, weakness and other (specify) (HEAVY) Ambulatory data Ambulatory device: none Treatments Number of previous injections: 0 Improvement with previous injections: No Number of Physical Therapy sessions: 0 Improvement with PT: No Improvement with NSAIDS: no Review of Systems Review of Systems: All systems negative unless otherwise noted in HPI.
[2025-07-04 10:01] VITALS: BP 148/91; PULSE 80; RESP 19; TEMP 36.8; O2SAT 97; BMI 32.8
== END 2025-07-04 10:09 | disposition home or self-care (01) ==
LOC: HODSRG 09:29
PROVIDERS: PCP Physician Assistant; Referring Provider Physician Assistant; Supervising Provider Orthopaedic Surgery Adult Reconstructive Orthopaedic Surgery; Visit Provider Orthopaedic Surgery Adult Reconstructive Orthopaedic Surgery
DX: M06.862 Other specified rheumatoid arthritis, left knee (principal); M06.861 Other specified rheumatoid arthritis, right knee; M25.562 Pain in left knee; M25.561 Pain in right knee; Z86.73 Personal history of transient ischemic attack (TIA), and cerebral infarction without residual deficits; I10 Essential (primary) hypertension
CPT/HCPCS: 73700; 99213; G0463

== ENCOUNTER → 2025-07-04 | Outpatient (CLI) | payer MEDICARE, SELFPAY ==
--- NOTE | 2025-07-04 10:27 | XR_ITS ---
Examination: CT left lower extremity, without contrast. 2-D sagittal reconstructions. 2-D coronal reconstructions. 3-D reconstructions. Date and time of exam: July 04, 2025, 1035 hours CTDI: vol (mGy): 12.3 DLP: (mGycm): 857 Technique: Multiple 1.25 mm axial sections of the left lower extremity without intravenous contrast have been obtained. 2-D sagittal and coronal reconstructions have been obtained. 3-D reconstructions have been obtained. Low dose protocols were performed. One or more of the following dose reduction techniques were used; automated exposure control, adjustment of the mA and/or KV according to patient size, use of iterative reconstruction technique. Findings: Moderate osteopenia Mild narrowing left hip joint No left hip fracture or dislocation Advanced tricompartment osteoarthritis left knee including severe narrowing medial lateral joint spaces No fractures IMPRESSION: Advanced tricompartment osteoarthritis left knee Severe narrowing medial lateral joint spaces
== END | disposition home or self-care (01) ==
PROVIDERS: PCP Physician Assistant; Referring Provider Orthopaedic Surgery Adult Reconstructive Orthopaedic Surgery; Visit Provider Orthopaedic Surgery Adult Reconstructive Orthopaedic Surgery
DX: M17.12 Unilateral primary osteoarthritis, left knee (principal); M25.862 Other specified joint disorders, left knee
CPT/HCPCS: 73700

== ENCOUNTER 2025-08-07 20:22 | Observation (INO) | payer MEDICARE, SELFPAY ==
[2025-08-01 07:49] VITALS: BMI 31.8
[2025-08-07] VITALS (24 sets, daily range): BP systolic 107–177; BP diastolic 60–103; PULSE 52–73; RESP 12–20; TEMP 36.1–36.5; O2SAT 94–100; BMI 31.4; BMI 37.8
[2025-08-07 10:13] LABS: Basophils # (Auto) 0.0 Thou/mm3 (0.0-0.2); Basophils % (Auto) 0 % (0-2.5); Eosinophils # (Auto) 0.0 Thou/mm3 (0.0-0.5); Eosinophils % (Auto) 0 % (0-10); Hematocrit 36.0 % (36.0-46.0); Hemoglobin 12.1 g/dL (12.0-16.0); Immature Granulocytes Auto 0.02 Thou/mm3 (0.00-0.00); Lymphocytes # (Auto) 2.0 Thou/mm3 (1.0-4.8); Lymphocytes % (Auto) 31 % (10-50); Mean Corpuscular HGB Conc 33.6 g/dl (31.0-37.0); Mean Corpuscular Hemoglobin 32.4 pg (25.0-35.0); Mean Corpuscular Volume 96 fL (80-100); Monocytes # (Auto) 0.5 Thou/mm3 (0.0-0.8); Monocytes % (Auto) 8 % (0-12); Neutrophils # (Auto) 3.8 Thou/mm3 (1.8-7.7); Neutrophils % (Auto) 60 % (37-80); Nucleated Red Blood Cell # 0.00 Thou/mm3 (0.00-0.00); Nucleated Red Blood Cell % 0 /100 WBC (0); Platelet Count 185 Thou/mm3 (140-440); RDW Standard Deviation 47.1 fL (36.4-46.3); Red Blood Count 3.74 Miln/mm3 (4.00-5.20); White Blood Count 6.4 Thou/mm3 (3.6-11.0)
[2025-08-07] MEDS: RINGERS LACTATED 1000 ML 1,000 ML 20 ML IV (10:18)
[2025-08-07] MEDS: ACETAMINOPHEN 325 MG TABLET 650 MG PO (10:20)
[2025-08-07] MEDS: MELOXICAM 7.5 MG TABLET PO (10:20)
[2025-08-07] MEDS: PREGABALIN 75 MG CAPSULE PO (10:21)
[2025-08-07 10:22] LABS: Anion Gap 8 (7-16); BUN/Creatinine Ratio 28 Ratio (12-20); Blood Urea Nitrogen 14 mg/dL (9-23); Calcium 9.7 mg/dL (8.3-10.6); Carbon Dioxide 26.4 mMol/L (20.0-31.0); Chloride 105 mMol/L (98-107); Creatinine (Component) 0.5 mg/dL (0.6-1.3); Estimated Creatinine Clearance 86.8 mL/min (>60); Glucose 97 mg/dL (74-106); Osmolality,Calculated 278 (275-295); Potassium 3.6 mMol/L (3.4-5.1); Sodium 139 mMol/L (136-145); eGFR > 60 See Note
[2025-08-07 10:24] LABS: INR 1.0 (0.9-1.3); Partial Thromboplastin Time 25.1 Seconds (22.0-36.0); Prothrombin Time 10.4 Seconds (9.0-12.2)
--- NOTE | 2025-08-07 11:04 | PD.ORTHCON ---
HPI Consult details Reason for consultation narrative: left knee pain History of present illness: HISTORY OF PRESENT ILLNESS I, Juan Manuel Herrera, have obtained verbal consent from the patient, to be recorded during this encounter which may include, but not limited to, medical history, examination, treatment plans, and relevant health information.? Patient was informed that recording will be read and reviewed by myself before inclusion in the medical chart. The patient is a 75-year-old female who presents with rheumatoid arthritis and pain ongoing for several years. She has had injections in the past. She has been managing her rheumatoid arthritis with [place], taken every 6 hours, as prescribed by Dr. Maciel. She is not currently on any specific medication for rheumatoid arthritis. 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 Review of Systems Review of Systems Narrative Review of Systems: Significant medical issues including chf, prior stroke Meds Home Medications and Allergies Home Medications ?Medication ?Instructions ?Recorded ?Confirmed ?Type hydrocodone 10 mg-acetaminophen 1 tab PO [id number] PRN ARTHIRITIS 07/16/24 08/07/25 History 325 mg tablet PAIN levothyroxine 50 mcg tablet 50 mcg PO DAILY 06/23/25 08/07/25 History lisinopril 30 mg tablet 30 mg PO DAILY 06/23/25 08/07/25 History rosuvastatin 40 mg tablet 40 mg PO DAILY 06/23/25 08/07/25 History furosemide 40 mg tablet (Lasix) 40 mg PO QDAY 08/01/25 08/07/25 History Allergies Allergy/AdvReac Type Severity Reaction Status Date / Time No Known Allergies Allergy Verified 08/01/25 07:45 Exam Vital Signs Temp Pulse Resp BP Pulse Ox 97.3 F 58 L 16 158/92 H 97 08/07/25 10:09 08/07/25 10:09 08/07/25 10:09 08/07/25 10:09 08/07/25 10:09 Additional findings Additional findings: Patient is in no acute distress and is cooperative with the examination today. Breathing is nonlabored. Patient has a normal mood and affect. Bilateral extremities were evaluated and demonstrates sensation intact to light touch. Palpable pedal pulses are present. No significant edema is present. Bilateral hips were examined. The patient has no pain with log roll of the hips. Internal rotation to 30 degrees and external rotation to 30 degrees is painless. Negative FADIR. Right knee was examined today. The right knee is in valgus alignment. Range of motion from 0-120 degrees. Knee is stable to varus and valgus as well as AP translation with <5mm. Patient has a negative McMurrays. There is no pain with patellofemoral compression and no crepitus noted. The knee is nontender to palpation. Left knee was examined today. The left knee is in varus alignment. Range of motion from 0-115 degrees. Knee is stable to varus and valgus as well as AP translation with <5mm. Patient has a negative McMurrays. There is no pain with patellofemoral compression and no crepitus noted. The knee is tender to palpation medially. Results - Ortho Labs 08/07/25 09:48 08/07/25 09:48 Labs: Short CBC 08/07/25 Range/Units 09:48 WBC 6.4 (3.6-11.0) Thou/mm3 Hgb 12.1 (12.0-16.0) g/dL Hct 36.0 (36.0-46.0) % Plt Count 185 (140-440) Thou/mm3 BMP 08/07/25 09:48 Sodium 139 Potassium 3.6 Chloride 105 Carbon Dioxide 26.4 BUN 14 Creatinine 0.5 L Glucose 97 Calcium 9.7 Assessment & Plan Problem List (1) Rheumatoid arthritis: Status: Acute Assessment and plan: Patient is a 75-year-old female with rheumatoid arthritis with bilateral knee pain worse on the left. She has extensive medical issues including prior stroke and is recently on Plavix. This will be need to be discontinued before surgery. We discussed the risks and benefits of surgery detail today She does have medical issues and has been cleared for surgery The nature and purpose of the total knee replacement, alternative method(s) of treatment, the material risks involved, and the possibility of complications were fully explained to the patient. The patient does NOT have any of the following contraindications to TKA: - Active infection of the knee joint, OR - Active systemic bacteremia, OR - Active skin infection or open wound at surgical site, OR - Neuropathic arthritis, OR - Severe, rapidly progressive neurological disease, OR - Severe medical condition that makes risks of surgery outweigh the potential benefit The patient was told the most common risks and complications associated with a total knee replacement include, but are not limited to: blood clots in the leg, fatal pulmonary embolism, dislocation of the prosthesis, intraoperative and postoperative fractures of the femur or tibia, infection, failure of the prosthesis or grafting materials, complications from anesthesia, reactions to blood transfusions, postoperative leg length inequality, instability of the knee replacement, nerve damage or injury, vascular injury, delayed wound healing, infection, other injury or even . In addition, there are risks associated with anesthesia given during this operation. Also, the patient was told that after undergoing a total knee replacement there may still be persistent pain or disability. The patient was informed that the success of this operation in part depends upon the mechanical devices which are going to be implanted and that these devices can fail or malfunction, and may need to be repaired or replaced and there are no guarantees as to the longevity of this device or its parts and that it or its parts could fail prematurely. The patient was also notified that during the course of surgery, there may be a need to use bone graft from donors, and that any bone graft used will be carefully screened for communicable diseases, including AIDS, hepatitis, Hector-Creutzfeldt, or other diseases, but despite the screening procedures, there is a small chance that they could contract one of these diseases. Finally, the patient was asked to follow completely and fully with all advice and recommended treatments, and that recovery and ultimate outcome are affected by their compliance with recommended treatment. We discussed the risks, benefits and treatment alternatives, and the patient is interested in proceeding with surgery. We will try to set this up as expeditiously as possible.
--- NOTE | 2025-08-07 13:14 | PD.SUROPNT ---
Date of Procedure 08/07/25 Pre Op Diagnosis left knee rheumatoid arthritis Post Op Diagnosis left knee rheumatoid arthritis Procedure left total knee replacement chinmay Findings full thickness cartilage loss and osteophytes Procedure Description Indication: The patient is a 75 year old who has a long history of left knee pain. X-rays show rheumatoid arthritis involving the knee. Over the past several years the patient has had increasing pain, progressive limitation in function. He has failed conservative measures including activity modification, physical therapy, injections, anti-inflammatories, and assistive devices. After a lengthy discussion of the risks and benefits, the patient presents now for total knee replacement. The nature and purpose of the total knee replacement, alternative method(s) of treatment, the material risks involved, and the possibility of complications were fully explained to the patient. The patient was told the most common risks and complications associated with a total knee replacement include, but are not limited to blood clots in the leg, fatal pulmonary embolism, dislocation of the prosthesis, intraoperative and postoperative fractures of the femur or tibia, infection, failure of the prosthesis or grafting materials, complications from anesthesia, reactions to blood transfusions, postoperative leg length inequality, instability of the knee replacement, nerve damage or injury, vascular injury, delayed wound healing, infections, other injury or even . In addition, there are risks associated with anesthesia given during this operation, temporary or permanent numbness on the skin lateral to the incision can be a complication unique to total knee surgery, and kneeling can be painful after knee replacement surgery. Also, the patient was told that after undergoing a total knee replacement there may still be pain or disability. We discussed with the patient that we will be using a robot-assisted technology. We discussed that there is a possibility of converting to manual instrumentation. The patient was informed that the success of this operation in part depends upon the mechanical devices which are going to be implanted and that these devices can fail or malfunction, and may need to be repaired or replaced and there are no guarantees as to the longevity of this device or its part and that it or its parts could fail prematurely. Finally, the patient was asked to follow completely and fully with all advice and recommended treatments, and that recovery and ultimate outcome are affected by their compliance with recommended treatment. Surgical technique: Patient was marked and consented in the pre-operative area. The patient was brought to the operating room and placed on the operating table in a supine position. Prior to positioning, a timeout procedure was performed between the surgeon, the anesthesiologist, and the nursing staff where the patient and the operative side were identified and confirmed. After adequate general anesthetic was obtained, the left lower extremity was prepped and draped in the usual sterile fashion. A weight based dose of Cefazolin were administered within 1 hour prior to incision. The robot was preregistered and calirated before the incision. The extremity was exsanguinated with an esmarch badge and tourniquet inflated to 250mmHg. A midline incision was made. A median parapatellar arthrotomy was made. The patella was subluxed laterally. A medial release was performed to expose the medial tibia. His femoral and tibial pins were placed through an intra incisional manner for both cases. Every effort was made to ensure that the distalmost aspect of the pin was hung in the second cortex. The arrays were then tightened several times to ensure that it was fixed for the remainder of the case. Both femoral and tibial checkpoints were then placed. We then went through the registration process of the bone. We then assessed the knee deformity and attempted to correct it. We also used the robot to aid in judging laxity in both extension and flexion. Final based on laxity and alignment we changed the preoperative assessment to obtain proper proper implant positioning and to correct deformity. Attention was then placed to the tibia. We made a tibial cut using the robot ensuring that both the MCL and the patella tendon were protected with retractors. We then went to the femur and made the posterior cut followed by the anterior cut and the anterior chamfer. The bone was then removed and we made a distal femur cut and a posterior chamfer cut. We verified all cuts. A trial reduction was performed with a size 3 femoral component and a size 3 keeled tibial component. The patella was cut and sized to a [33]. The patella tracked centrally, and no lateral retinacular release was necessary. The trial implants were removed. The arrays, pins, and checkpoints were all removed. We performed a verification that all pins were removed. The cut bone surfaces were lavaged. A size 3 left femoral component, a size 3 keeled tibial component were impacted into position using 2 bags of palacos. A trial insert was placed and a size 33 patella were impacted into position. The knee was left in extension until the cement hardened. The knee was felt to be well balanced in the sagittal and coronal plane. The final 3x12 mm cruciate-substituting articular insert was impacted into the tibial tray. The knee was brought out to full extension, flexed up to 120 degrees. It was stable to varus and valgus stress and appropriately balanced in flexion and extension. The wounds were copiously irrigated following deflation of tourniquet. The medial retinaculum was reapproximated with #1 vicryl and quill. The subcutaneous tissues were closed with 0 and 2-0 interrupted Vicryl. The skin was closed with 3-0 Monofilament V loc suture. A sterile dressing was applied. The patient was transferred to a bed and brought to recovery in stable condition. The patient tolerated the procedure well. There were no intraoperative complications. Sponge and needle counts were correct times 2. As the attending surgeon, I attest I was present and performed the entire operation. Grafts/Implants Size [3] CR Femur Size 3 Tibia 12mm poly CS 33mm patella 2 bags of palacos Anesthesia GETA Drains none Implants Implants comments: blair Pathology / specimen None Pathology comment: none Estimated Blood Loss 150 Condition Stable Disposition same day Surgeon Juan Manuel Herrera MD Surgical Staff Operation Date: 08/07/25 12:30 Case Staff CLAIMS SERVICE REPRESENTATIVE: Juan Chi Jr, RN First Assistant: Charito Hayden
--- NOTE | 2025-08-07 13:16 | XR_ITS ---
EXAMINATION: Left knee 2 views TECHNIQUE: AP lateral left knee 2 views Date and time: August 07, 2025, 1436 hours INDICATIONS: Postop knee replacement FINDINGS: Total left knee arthroplasty. Satisfactory alignment No fracture IMPRESSION: Total left knee arthroplasty with satisfactory alignment
--- NOTE | 2025-08-07 13:42 | SUR.PHASEI ---
pt arrived to PACU via gurney drowsy but arouses to voice, breathing unlabored, dressing to left lower extremity clean, dry, and intact, report from Monserrat CEDILLO and Juan MCCLOUD
[2025-08-07] MEDS: HYDROmorphone INJ 2 MG/ML VIAL 0.4 MG IVP ×2 (13:59→14:21)
--- NOTE | 2025-08-07 14:30 | SUR.PHASEI ---
pt tolerating oral fluids without difficulty swallowing or n/v
--- NOTE | 2025-08-07 15:15 | SUR.PHASEII ---
Nery, Physical Therapist, made aware that patient is ready for evaluation
--- NOTE | 2025-08-07 15:40 | SUR.PHASEII ---
Nery PT, at bedside.
--- NOTE | 2025-08-07 16:00 | SUR.PHASEII ---
pt able to walk with Physical Therapist, pt unable to urinate at this time
--- NOTE | 2025-08-07 19:00 | SUR.PHASEII ---
pt still unable to urinate, bladder scan done and showing 372 mL of urine, per Dr Herrera, wait one more hour to see if pt can urinate on her own.
--- NOTE | 2025-08-07 21:05 | SUR.PHASEII ---
pt awake, alert, able to follow commands, breathing unlabored, dressing to left lower extremity clean, dry, and intact, bilateral pedal pulses present and equal, circulation to bilateral toes WNL, report called to Martha CEDILLO, pt transferred to room at this time.
[2025-08-08] VITALS: BP 117/67; PULSE 61; RESP 16; TEMP 36.3; O2SAT 95
[2025-08-08 01:12] VITALS: PULSE 60; RESP 16; RESP 94
[2025-08-08 04:09] VITALS: BP 125/73; PULSE 82; RESP 18; TEMP 36.7; O2SAT 94
[2025-08-08] MEDS: LEVOTHYROXINE SODIUM 25 MCG TABLET 50 MCG PO (06:41)
[2025-08-08 08:22] VITALS: BP 136/74; PULSE 67; RESP 15; TEMP 36.3; O2SAT 94
[2025-08-08 09:28] VITALS: BP 136/74; PULSE 67
[2025-08-08] MEDS: ASPIRIN 81 MG CHEW PO (09:28)
[2025-08-08 12:13] VITALS: BP 155/87; PULSE 66; RESP 16; TEMP 36.6; O2SAT 95
[2025-08-08 13:47] VITALS: BMI 13.0
== END 2025-08-08 11:35 | disposition home or self-care (01) ==
LOC: S3SX 20:47
PROVIDERS: Admitting Provider Orthopaedic Surgery Adult Reconstructive Orthopaedic Surgery; PCP Physician Assistant; Referring Provider Orthopaedic Surgery Adult Reconstructive Orthopaedic Surgery; Visit Provider Orthopaedic Surgery Adult Reconstructive Orthopaedic Surgery
PROC: 8E0Y0CZ Robotic Assisted Procedure of Lower Extremity, Open Approach (ICD-10-PCS; CPT 27446; principal; 2025-08-07 12:30)
DX: M06.862 Other specified rheumatoid arthritis, left knee (principal)
CPT/HCPCS: 27447; 20985; 36415; 73560; 80048; 85025; 85610; 85730; 87081; 94762; 96374; 96376; 97162; A4217; A4649; C1713; C1776; G0378; J1171; J2250; J2270; J2704; J2795; J3010; J7120; J7999; A4648; A9270